=== PATIENT | female | born 1960 | race Caucasian/White ===

== ENCOUNTER → 2024-01-28 07:36 | Outpatient (REF) | payer BC, SELFPAY | LOC: EMG 07:36 | PROVIDERS: ATTENDING PHYSICIAN Pain Medicine Interventional Pain Medicine; FAMILY PHYSICIAN Family Medicine | DX: R20.0 Anesthesia of skin (principal) | CPT/HCPCS: 95886; 95910 ==

== ENCOUNTER → 2024-02-20 14:08 | Outpatient (REF) | payer BC, SELFPAY | LOC: HWRAD 14:08 | PROVIDERS: ATTENDING PHYSICIAN Internal Medicine Rheumatology; FAMILY PHYSICIAN Family Medicine | DX: M81.0 Age-related osteoporosis without current pathological fracture (principal) | CPT/HCPCS: 77080 ==

== ENCOUNTER 2024-06-27 14:05 | Emergency (ER) | payer BC, SELFPAY ==
[2024-06-27 14:09] VITALS: BP 127/80; BMI 24.8
--- NOTE | 2024-06-27 15:58 | ED.GENMED ---
History of Present Illness
General
Chief Complaint: Abdominal Symptoms
Source: patient
Exam Limitations: none
Time Seen by Provider: 06/27/24 15:54
Nursing documentation reviewed up to this point in time: agreed with
History of Present Illness
History of Present Illness:
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 Patient started first chemo and immunotherapy for soft
tissue and muscle cancer on 3 days ago at [facility] and since then has been extremely nauseous despite Zofran sublingual. She has not been able to eat. She feels very nauseous has dry heaves and is weak. She denies any fever or chills.
She is still urinating normally denies any urinary frequency urgency or dysuria.
Denies any chest pain shortness of breath. Her oncologist is Dr. Orellana AT [facility].
She did have a Neupogen injection with chemo.
Past History
Past History
ED Past Medical History: Asthma, HTN and Other (Kidney stones, hyper aldosteronism, Ulcers)
ED Past Surgical History: Other (Kidney stones)
Social History
Tobacco: Former smoker
Alcohol: Occasional
Personal: Single
Living: with family
Employment: Employed
Family History
Family History: Other (n/c)
Review of Systems
Review of Systems
Allergies reviewed?: Yes
Other source history: family
All Other Systems: ROS reviewed and negative except as documented in HPI and ROS
Constitutional: Reports no symptoms
Respiratory: Reports no symptoms
Cardiac: Reports no symptoms
ABD/GI: Reports nausea; Denies abdominal pain
: Reports no symptoms; Denies dysuria, flank pain, incontinence or urgency
Musculoskeletal: Reports no symptoms
Skin: Reports no symptoms
Neurological: Reports no symptoms
Hematologic/Lymphatic: Reports no symptoms
Psychiatric: Reports no symptoms
Phy Exam
General Physical Exam
General Presentation: no apparent distress
General age: appears stated age
General Skin: warm and dry
General Habitus: normal
General Mental: alert
General Hydration: appears well hydrated
Cardiovascular Exam
Cardiovascular Exam: regular rate/rhythm, no murmur and normal peripheral pulses
Pulmonary Exam
Pulmonary Exam: lungs clear and no respiratory distress
Neurological Exam
Neurological Exam: alert and oriented x3
Musculoskeletal Exam
Musculoskeletal Exam: full ROM
Skin Exam
Skin Exam: normal color and warm/dry
Psychiatric Exam
Psychiatric Exam: normal mood/affect
Course
Orders/Labs/Results
Orders:
Orders
06/27/24 16:08
Cardiac Monitoring- Treatment ONCE
IV Insert/Care/Rem.- Treatment PRN
0.9% Sodium Chloride 1000 ml [Nss] 1,000 ml IV BOLUS
Ondansetron Injectable [Zofran] 4 mg IV NOW STA
06/27/24 16:21
Basic Metabolic Panel Urgent
Complete Blood Count/With Diff Urgent
06/27/24 17:10
Morphine Sulfate 4 mg IV NOW STA
06/27/24 18:04
Potassium Urgent
06/27/24 18:23
Diphenhydramine [Benadryl] 25 mg IV NOW STA
Metoclopramide [Reglan] 10 mg IV NOW STA
Abnormal Lab Results
06/27/24
16:21
WBC 34.9 H 10^3/uL
(4.8-10.8)
Abs Immat Gran (auto) 3.1 H 10^3/uL
(0-0.05)
Absolute Neuts (auto) 30.8 H 10^3/uL
(1.4-6.5)
Absolute Lymphs (auto) 0.7 L 10^3/uL
(1.2-3.4)
Immature Gran % 8.8 H %
(0-0.5)
Neutrophils % 88.2 H %
(42.2-75.2)
Lymphocytes % 2.0 L %
(20.5-51.1)
Monocytes % 0.8 L %
(1.7-9.3)
Sodium 130 L mmol/L
(135-145)
BUN 19 H mg/dl
(7-17)
06/27/24 16:21
06/27/24 18:04
Vital Signs
Initial and Last Documented VS:
Initial Vital Signs
Temp Pulse Resp BP Pulse Ox
97.9 F 96 16 127/80 97
06/27/24 14:09 06/27/24 14:09 06/27/24 14:09 06/27/24 14:09 06/27/24 14:09
Last Documented Vital Signs
Temp Pulse Resp BP Pulse Ox
97.9 F 96 16 130/83 95
06/27/24 14:09 06/27/24 14:09 06/27/24 14:09 06/27/24 19:00 06/27/24 19:30
MDM/Problems Addressed
Differential Diagnosis Includes:
not limited to: nausea/and vomiting from chemo, dehydration
MDM/Problems Addressed:
Patient is a 63-year-old female recently started back on chemo June 24 for soft tissue chest mass secondary to prior history of lung cancer on the right. Patient is treated at [facility]. She reports she is extremely nauseous has dry heaves feels
dehydrated has not been able to eat. She denies any diarrhea. She did have Neupogen injection during her chemo. She denies any urinary frequency urgency or dysuria. Denies any abdominal pain. She is afebrile white count 34,000 likely from
Neupogen. Sodium is mildly low at 130 will check potassium as that was clotted. BUN slightly elevated creatinine normal 0.6. Will hydrate and treat for nausea.
Pt was hydrated here . received zofran/reglan/benadryl/fluids now feeling much better ambulatory [id number] to the bathroom. Feels well enough to go home will DC home with outpatient follow-up with her oncologist. discussed the importance of
getting her sodium rechecked and to return if any worsening of symptoms.
Chronic conditions affecting care:
Currently being treated for cancer and soft tissue muscle of chest from primary lung cancer
*Pulse Oximetry
Patient hypoxic: no
*Critical Care Note
Total Time (30-74mins, 75-104mins- exclusive of procedures): Not Applicable
ED Attending Note
-
Portions of this chart may have been created with voice recognition software.� Occasional wrong word or��sound alike� substitutions may have occurred due to the inherent limitations of voice recognition software.
Discharge Plan
Departure
Patient Disposition: Home (Routine Discharge)
Date of Disposition: 06/27/24
Time of Disposition: 20:30
Patient with high blood pressure during this ER visit?: Yes
Condition: Fair
Covid-19: Not Applicable
Discharge Problem:
Nausea
Instructions: Clear Liquid Diet, [place] Diet, BLOOD PRESSURE
Prescriptions:
No Action
spironolactone 50 MG tablet
50 mg PO BID
albuterol sulfate 1 PUFF HFA aerosol inhaler
1 puff inhalation R Q4HPRN PRN (Reason: sob)
ibuprofen 600 MG tablet
600 mg PO Q6H Qty: 30 0RF
benzonatate 100 MG capsule
1 tab PO Q4H PRN (Reason: cough)
sucralfate [Carafate] 1 GM tablet
1 gm PO BID
famotidine 20 MG tablet
20 mg PO BID
fluticasone furoate-vilanterol [Breo Ellipta] 1 EACH blister with device
1 ea IH DAILY
prednisone 20 MG tablet
40 mg PO DIRECTED
Patient Comments:
takes when has asthma flare up
doxycycline hyclate 100 MG capsule
100 mg PO Q12 Qty: 20 0RF
albuterol sulfate 2.5 MG/3 ML solution for nebulization
2.5 mg inhalation R QID Qty: 20 0RF
prednisone 10 MG tablet
40 mg PO DAILY Qty: 50 0RF
Rx Instructions:
4 pills for 3 days, 3 pills for 3 days, 2 pills for 3 days, one pill for 2 days
Referrals:
Misa Tyson, [Family Provider] -
Activity Restrictions/Additional Instructions:
As discussed clear liquids for the next 24 hours follow bland solid foods. He may continue to take your Zofran as needed for nausea. Follow-up with your family doctor/oncologist in the next several days for reevaluation of your symptoms. Also
have your sodium rechecked as it was low here in the ER.
Return if any worsening of symptoms
Interventions
Interventions:
*Risk Screen - Suicide Last Done: 06/27/24 14:09
*Neglect/Abuse Screening Last Done: 06/27/24 14:09
ED- Fall Risk Assessment Last Done: 06/27/24 14:09
*Nursing Disposition Last Done: 06/27/24 20:42
XU-Tiywim-Ryyudespef Assessment Last Done: 06/27/24 17:04
Discharge Date and Time
Discharge Date/Time: 06/27/24 20:42
Print Language: TAMAZIGHT
[2024-06-27] MEDS: ZOFRAN 4 MG IV (16:24)
[2024-06-27] MEDS: NSS 1000 IV (16:24)
[2024-06-27 16:41] VITALS: BP 129/81
[2024-06-27 16:58] LABS: Hematocrit 40.5 % (37.0-47.0); Hemoglobin 13.7 g/dL (12.0-16.0); Mean Corp Hgb Conc. 33.8 g/dL (33.0-37.0); Mean Corpuscular Hgb 29.1 pg (27.0-31.0); Mean Corpuscular Volume 86.2 fL (81.0-99.0); Mean Platelet Volume 8.6 fL (7.4-10.4); Platelet Count 350 10^3/uL (130-400); Red Cell Dist. Width 12.4 % (11.5-14.5); White Blood Cell Count 34.9 10^3/uL (4.8-10.8)
[2024-06-27 17:00] VITALS: BP 127/70
[2024-06-27 17:06] LABS: Blood Urea Nitrogen 19 mg/dl (7-17); Carbon Dioxide 22 mmol/L (22-30); Chloride 100 mmol/L (98-107); Estimated Creatinine Clearance 71 ml/min; Glucose 84 mg/dl (70-99); Sodium 130 mmol/L (135-145); eGFR > 60.00
[2024-06-27 17:09] LABS: % Basophils 0.2 % (0-2); % Immature Granulocytes 8.8 % (0-0.5); % Monocytes 0.8 % (1.7-9.3); % Neutrophils 88.2 % (42.2-75.2); Absolute Basophils 0.1 10^3/uL (0-0.2); Absolute Immature Granulocytes 3.1 10^3/uL (0-0.05); Absolute Lymphocytes 0.7 10^3/uL (1.2-3.4); Absolute Monocytes 0.3 10^3/uL (0.1-0.6); Absolute Neutrophils 30.8 10^3/uL (1.4-6.5); Nucleated Red Blood Cells % 0 %
[2024-06-27] MEDS: MORPHINE SULFATE 4 MG IV (17:19)
[2024-06-27 18:00] VITALS: BP 132/73
[2024-06-27] MEDS: REGLAN 10 MG IV (18:27)
[2024-06-27] MEDS: BENADRYL 25 MG IV (18:27)
[2024-06-27 18:37] LABS: Potassium 4.2 mmol/L (3.5-5.1)
[2024-06-27 19:00] VITALS: BP 130/83
== END 2024-06-27 20:42 | disposition home or self-care (01) ==
LOC: EMR 14:05
PROVIDERS: Nurse Practitioner; EMERGENCY PHYSICIAN Emergency Medicine; FAMILY PHYSICIAN Family Medicine
DX: R11.0 Nausea (principal); I10 Essential (primary) hypertension; C34.90 Malignant neoplasm of unspecified part of unspecified bronchus or lung; Z87.891 Personal history of nicotine dependence
CPT/HCPCS: 99284; 96374; 96375 ×3; 96361; 80048; 84132; 85025

== ENCOUNTER 2024-08-07 16:18 | Emergency (ER) | payer BC, SELFPAY ==
[2024-08-07] VITALS (8 sets, daily range): BP systolic 87–125; BP diastolic 57–75; BMI 24.9
--- NOTE | 2024-08-07 16:58 | ED.GENMED ---
History of Present Illness
General
Chief Complaint: Abdominal Symptoms
Time Seen by Provider: 08/07/24 16:58
History of Present Illness
History of Present Illness:
HPI: The patient presents due to generalized weakness and dehydration symptoms. She relates this to her last chemo at [facility] for metastatic lung cancer. She last had this 10 days ago. They tried to decrease her chemotherapy dosing but also she
continues to take immunotherapy as well. She had similar episodes with the last cycle of chemo as well. She denies any fevers or abdominal pain. She has had some decreased urine output
EXAM:
GENERAL: The patient appears generally weak and debilitated
HEENT: Slightly dry oral mucosa
CARDIOVASCULAR: No murmurs, normal heart rate, regular rhythm, No chest wall tenderness, she has a port in the left anterior chest wall
PULMONARY: No respiratory distress, breath sounds are clear and equal
ABDOMEN: Soft with no peritoneal signs, no tenderness
NEUROLOGIC: Good strength all extremities, no coordination deficits
PSYCHIATRIC: Appropriate mental status, normal insight and judgement
EXTREMITIES: Nontender, no edema, moves all extremities equally
SKIN: No rash, no lesions
TIME OF INITIAL ENCOUNTER: 5 PM
NUMBER AND COMPLEXITY OF PROBLEMS ADDRESSED AT THE ENCOUNTER
� Chronic conditions affecting care: Metastatic lung cancer status post right lung removal, high blood pressure, migraine
� Acute Exacerbation and/or Progression of Chronic Illness: This is an acute exacerbation of recurring problem
� Differential Diagnosis includes: Chemotherapy-induced nausea, doubt surgical abdomen etiology
AMOUNT AND/OR COMPLEXITY OF DATA TO BE REVIEWED AND ANALYZED
� I performed an independent evaluation of and my interpretation is:
EKG:
CT:
X-rays:
Laboratory Studies: White count 10.7, hemoglobin 9.8 which is lower in comparison to 6 weeks ago it was 13.7 chemistries including LFTs and lipase unremarkable
Other:
� Review of other/old records: I reviewed records. The patient was seen here 6 weeks ago for nausea and at that time had a white count of 35, and chemistries were unremarkable.
� Clinical information was obtained by an independent historian: I spoke to the sister at bedside
� Prescriptions/Medications Considered but not given:
� Further testing considered but not performed:
RISK OF COMPLICATIONS AND/OR MORBIDITY OR MORTALITY OF PATIENT MANAGEMENT
� Social determinants of health affecting care: Lives at home with her sister
� Discussion with other providers:
� Escalation of care including admission/observation vs risk of discharge considered: The patient's port has been accessed. The patient prefers Reglan over Zofran�I have ordered this along with 2 L of fluid. Given the drop in
hemoglobin, I performed a digital rectal examination which was negative for Hemoccult blood. The patient's blood pressure has been somewhat low at times in the emergency department with a systolic of around 200. She states her normal systolic is
around 110. Since she did have a drop in the hemoglobin and does have mild hypotension, I offered and considered keeping her in the hospital however the patient overall feels significant improved and is eager to go home. She states she has nausea
medicine at home. On reassessment at 9 PM, the patient has had some low blood pressure readings of around 90 systolic and she is also had some readings that were around 120. I personally took several readings. Overall she feels improved and feels
comfortable with going home. Since she did have some low blood pressure readings, I recommend that she hold the Aldactone until her blood pressure improves. She has no symptoms concerning with low blood pressure readings.
Past History
Past History
ED Past Medical History: Asthma, HTN and Other (Kidney stones, hyper aldosteronism, Ulcers)
ED Past Surgical History: Other (Kidney stones)
Social History
Tobacco: Former smoker
Alcohol: Occasional
Personal: Single
Living: with family
Employment: Employed
Family History
Family History: Other (n/c)
Phy Exam
Physical Exam
Physical Exam:
See HPI
Course
Orders/Labs/Results
Orders:
Orders
08/07/24 16:58
Complete Blood Count/With Diff Urgent
Comprehensive Metabolic Panel Urgent
Lipase Urgent
08/07/24 17:10
0.9% Sodium Chloride 1000 ml [Nss] 1,000 ml IV BOLUS
Diphenhydramine [Benadryl] 25 mg IV NOW STA
Metoclopramide [Reglan] 10 mg IV NOW STA
08/07/24 17:11
0.9% Sodium Chloride 1000 ml [Nss] 1,000 ml IV BOLUS
08/07/24 20:08
Ketorolac [Toradol] 15 mg IV NOW STA
Abnormal Lab Results
08/07/24
16:58
RBC 3.63 L 10^6/uL
(4.20-5.40)
Hgb 9.8 L g/dL
(12.0-16.0)
Hct 29.2 L %
(37.0-47.0)
MCV 80.4 L fL
(81.0-99.0)
Abs Immat Gran (auto) 0.2 H 10^3/uL
(0-0.05)
Absolute Neuts (auto) 8.5 H 10^3/uL
(1.4-6.5)
Absolute Lymphs (auto) 0.9 L 10^3/uL
(1.2-3.4)
Absolute Monos (auto) 1.2 H 10^3/uL
(0.1-0.6)
Immature Gran % 1.6 H %
(0-0.5)
Neutrophils % 79.2 H %
(42.2-75.2)
Lymphocytes % 8.0 L %
(20.5-51.1)
Monocytes % 11.0 H %
(1.7-9.3)
Sodium 131 L mmol/L
(135-145)
Chloride 92 L mmol/L
(98-107)
BUN 18 H mg/dl
(7-17)
Glucose 106 H mg/dl
(70-99)
Alkaline Phosphatase 155 H U/L
(38-126)
Total Protein 5.7 L g/dl
(6.3-8.2)
Albumin 3.2 L g/dl
(3.5-5.0)
Lipase 16 L U/L
(23-300)
08/07/24 16:58
08/07/24 16:58
Vital Signs
Initial and Last Documented VS:
Initial Vital Signs
Temp Pulse Resp BP Pulse Ox
98.1 F 108 16 125/75 96
08/07/24 16:27 08/07/24 16:27 08/07/24 16:27 08/07/24 16:27 08/07/24 16:27
Last Documented Vital Signs
Temp Pulse Resp BP Pulse Ox
98.1 F 96 18 87/58 96
08/07/24 16:27 08/07/24 20:00 08/07/24 20:00 08/07/24 20:51 08/07/24 20:51
*Critical Care Note
Total Time (30-74mins, 75-104mins- exclusive of procedures): Not Applicable
ED Attending Note
-
Portions of this chart may have been created with voice recognition software.� Occasional wrong word or��sound alike� substitutions may have occurred due to the inherent limitations of voice recognition software.
Discharge Plan
Departure
Patient Disposition: Home (Routine Discharge)
Date of Disposition: 08/07/24
Time of Disposition: 21:04
Patient with high blood pressure during this ER visit?: Yes
Discharge Problem:
Dehydration
Instructions: Dehydration, Adult (DC), BLOOD PRESSURE
Prescriptions:
New
metoclopramide HCl [Reglan] 10 mg tablet
10 mg PO Q8HPRN PRN (Reason: nausea and vomiting) Qty: 9 0RF
No Action
spironolactone 50 MG tablet
50 mg PO BID
albuterol sulfate 1 PUFF HFA aerosol inhaler
1 puff inhalation R Q4HPRN PRN (Reason: sob)
ibuprofen 600 MG tablet
600 mg PO Q6H Qty: 30 0RF
benzonatate 100 MG capsule
1 tab PO Q4H PRN (Reason: cough)
sucralfate [Carafate] 1 GM tablet
1 gm PO BID
famotidine 20 MG tablet
20 mg PO BID
fluticasone furoate-vilanterol [Breo Ellipta] 1 EACH blister with device
1 ea IH DAILY
prednisone 20 MG tablet
40 mg PO DIRECTED
Patient Comments:
takes when has asthma flare up
doxycycline hyclate 100 MG capsule
100 mg PO Q12 Qty: 20 0RF
albuterol sulfate 2.5 MG/3 ML solution for nebulization
2.5 mg inhalation R QID Qty: 20 0RF
prednisone 10 MG tablet
40 mg PO DAILY Qty: 50 0RF
Rx Instructions:
4 pills for 3 days, 3 pills for 3 days, 2 pills for 3 days, one pill for 2 days
Referrals:
Misa Tyson, DO [Family Provider] -
Activity Restrictions/Additional Instructions:
You did have several low blood pressure readings of around 90 systolic tonight. I therefore recommend that you hold the Aldactone until your blood pressure improves. We did give you some Reglan and Benadryl that might sedation and drop your blood
pressure a little bit. We gave you 2 L of fluid. Your hemoglobin did drop as well down to 9.8 but your rectal examination did not show any signs of bleeding. You are encouraged to return here if worse.
Interventions
Interventions:
*Risk Screen - Suicide Last Done: 08/07/24 17:58
*General Assessment Last Done: 08/07/24 17:58
*Neglect/Abuse Screening Last Done: 08/07/24 17:58
ED- Fall Risk Assessment Last Done: 08/07/24 17:58
*ED COVID-19 Vaccine History Last Done: 08/07/24 17:58
[id number] Assessment Last Done: 08/07/24 17:58
Discharge Date and Time
Print Language: DIVEHI
[2024-08-07 17:33] LABS: ALT (SGPT) 21 U/L (0-35); AST (SGOT) 23 U/L (14-36); Albumin 3.2 g/dl (3.5-5.0); Alkaline Phosphatase 155 U/L (38-126); Blood Urea Nitrogen 18 mg/dl (7-17); Calcium 9.6 mg/dl (8.4-10.2); Carbon Dioxide 23 mmol/L (22-30); Chloride 92 mmol/L (98-107); Glucose 106 mg/dl (70-99); Lipase 16 U/L (23-300); Potassium 3.7 mmol/L (3.5-5.1); Sodium 131 mmol/L (135-145); Total Protein 5.7 g/dl (6.3-8.2); eGFR > 60.00
[2024-08-07 17:37] LABS: Hematocrit 29.2 % (37.0-47.0); Hemoglobin 9.8 g/dL (12.0-16.0); Mean Corp Hgb Conc. 33.6 g/dL (33.0-37.0); Mean Corpuscular Volume 80.4 fL (81.0-99.0); Mean Platelet Volume 9.7 fL (7.4-10.4); Platelet Count 174 10^3/uL (130-400); Red Blood Cell Count 3.63 10^6/uL (4.20-5.40); White Blood Cell Count 10.7 10^3/uL (4.8-10.8)
[2024-08-07] MEDS: BENADRYL 25 MG IV (17:41)
[2024-08-07] MEDS: REGLAN 10 MG IV (17:42)
[2024-08-07] MEDS: NSS 1000 IV ×2 (17:43→19:29)
[2024-08-07 17:46] LABS: % Basophils 0.1 % (0-2); % Eosinophils 0.1 % (0-6); % Immature Granulocytes 1.6 % (0-0.5); % Neutrophils 79.2 % (42.2-75.2); Absolute Immature Granulocytes 0.2 10^3/uL (0-0.05); Absolute Lymphocytes 0.9 10^3/uL (1.2-3.4); Absolute Monocytes 1.2 10^3/uL (0.1-0.6); Absolute Neutrophils 8.5 10^3/uL (1.4-6.5); Nucleated Red Blood Cells % 0 %
--- NOTE | 2024-08-07 18:08 | EDRN ---
Dr. Ramírez in room w/pt at this time.
[2024-08-07] MEDS: TORADOL 15 MG IV (20:12)
--- NOTE | 2024-08-07 21:24 | VATNOTE ---
Patient's port was flushed with heparin and de-accessed per primary RN request as patient is being discharged.
== END 2024-08-07 21:33 | disposition home or self-care (01) ==
LOC: EMR 16:18
PROVIDERS: Student in an Organized Health Care Education/Training Program; EMERGENCY PHYSICIAN Emergency Medicine; FAMILY PHYSICIAN Family Medicine
DX: E86.0 Dehydration (principal); R53.1 Weakness; R11.0 Nausea; I10 Essential (primary) hypertension; C34.90 Malignant neoplasm of unspecified part of unspecified bronchus or lung; J45.909 Unspecified asthma, uncomplicated; E26.9 Hyperaldosteronism, unspecified; G43.909 Migraine, unspecified, not intractable, without status migrainosus; Z92.21 Personal history of antineoplastic chemotherapy; Z90.2 Acquired absence of lung [part of]; Z88.8 Allergy status to other drugs, medicaments and biological substances; Z87.891 Personal history of nicotine dependence; Z87.442 Personal history of urinary calculi
CPT/HCPCS: 99284; 96374; 96375 ×2; 96361 ×3; 80053; 83690; 85025

== ENCOUNTER 2024-09-01 11:01 | Emergency (ER) | payer BC, SELFPAY ==
[2024-09-01 11:06] VITALS: BP 107/71
--- NOTE | 2024-09-01 11:59 | ED.GENMED ---
History of Present Illness
<KELLY Ramirez - Last Filed: 09/02/24 22:09>
General
Chief Complaint: Bowel Problem
Source: patient
Exam Limitations: none
Time Seen by Provider: 09/01/24 11:33
Nursing documentation reviewed up to this point in time: agreed with
History of Present Illness
History of Present Illness:
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 She is follwed by DR Law Espitia ([facility]) . Patient complains of constipation and
reports her last full bowel movement was 10 days ago she was sent by her oncologist. She has nauseous. She has dry heaving but is not vomiting. She is on lactulose and did give a fleets enema yesterday.
She believes she last had chemo at the end of July but did not have chemotherapy August 25 because of nausea. She is due September 03.
Past History
<KELLY Ramirez - Last Filed: 09/02/24 22:09>
Past History
ED Past Medical History: Asthma, HTN and Other (Kidney stones, hyper aldosteronism, Ulcers)
ED Past Surgical History: Other (Kidney stones)
Social History
Tobacco: Former smoker
Alcohol: Occasional
Personal: Single
Living: with family
Employment: Employed
Family History
Family History: Other (n/c)
Review of Systems
<KELLY Ramirez - Last Filed: 09/02/24 22:09>
Review of Systems
Allergies reviewed?: Yes
All Other Systems: ROS reviewed and negative except as documented in HPI and ROS
Constitutional: Reports no symptoms; Denies fever
Respiratory: Reports no symptoms
Cardiac: Reports no symptoms
ABD/GI: Reports abdominal pain, nausea, vomiting ('dry heaving' ) and constipated
: Reports no symptoms
Musculoskeletal: Reports no symptoms
Skin: Reports no symptoms
Neurological: Reports no symptoms
Psychiatric: Reports no symptoms
Phy Exam
<KELLY Ramirez - Last Filed: 09/02/24 22:09>
General Physical Exam
General Presentation: no apparent distress
General age: appears stated age
General Skin: warm and dry
General Habitus: normal
General Mental: alert
General Hydration: appears well hydrated
Gastrointestinal Exam
Gastrointestinal Exam: soft and other (+ BS non tender sm amt of stool brown heme neg)
Neurological Exam
Neurological Exam: alert
Musculoskeletal Exam
Musculoskeletal Exam: full ROM
Skin Exam
Skin Exam: normal color and warm/dry
Psychiatric Exam
Psychiatric Exam: normal mood/affect
Course
<KELLY Ramirez - Last Filed: 09/02/24 22:09>
Orders/Labs/Results
Orders:
Orders
09/01/24 11:56
IV Insert/Care/Rem.- Treatment PRN
CR Obstruct Series W/pa Chest Urgent
Comment:
Reason For Exam: constipation
09/01/24 12:19
Complete Blood Count/With Diff Urgent
Comprehensive Metabolic Panel Urgent
09/01/24 13:55
CT Abd/pel W Iv And Oral Contr Urgent
Comment:
Reason For Exam: abd pain constipation
0.9% Sodium Chloride 1000 ml [Nss] 1,000 ml IV BOLUS
Iohexol [Omnipaque] See Protocol PO NOW STA
09/01/24 17:25
UA Reflex to Culture [Urinalysis Reflex To Culture] Urgent
Date Specimen was Collected: 09/01/24
Time Specimen was Collected: 15:36
09/01/24 17:46
Enema- Treatment ONCE
Type: Milk of Molasses
09/01/24 19:20
Lorazepam [Ativan] 0.5 mg PO NOW STA
Abnormal Lab Results
09/01/24 09/01/24
12:19 17:25
WBC 24.4 H 10^3/uL
(4.8-10.8)
RBC 2.92 L 10^6/uL
(4.20-5.40)
Hgb 7.7 L g/dL
(12.0-16.0)
Hct 24.6 L %
(37.0-47.0)
MCH 26.4 L pg
(27.0-31.0)
MCHC 31.3 L g/dL
(33.0-37.0)
RDW 18.3 H %
(11.5-14.5)
Abs Immat Gran (auto) 0.3 H 10^3/uL
(0-0.05)
Absolute Neuts (auto) 22.4 H 10^3/uL
(1.4-6.5)
Absolute Lymphs (auto) 0.6 L 10^3/uL
(1.2-3.4)
Absolute Monos (auto) 1.1 H 10^3/uL
(0.1-0.6)
Immature Gran % 1.1 H %
(0-0.5)
Neutrophils % 91.7 H %
(42.2-75.2)
Lymphocytes % 2.3 L %
(20.5-51.1)
Sodium 131 L mmol/L
(135-145)
Chloride 92 L mmol/L
(98-107)
Creatinine 0.5 L mg/dL
(0.6-1.0)
Alkaline Phosphatase 143 H U/L
(38-126)
Total Protein 5.0 L g/dl
(6.3-8.2)
Albumin 2.6 L g/dl
(3.5-5.0)
Urine Ketones 1+ A
(Negative)
Urine Urobilinogen 2+ A
(Neg - 1+)
09/01/24 12:19
09/01/24 12:19
Vital Signs
Initial and Last Documented VS:
Initial Vital Signs
Temp Pulse Resp BP Pulse Ox
98.8 F 104 18 107/71 95
09/01/24 11:06 09/01/24 11:06 09/01/24 11:06 09/01/24 11:06 09/01/24 11:06
Last Documented Vital Signs
Temp Pulse Resp BP Pulse Ox
98.8 F 80 18 116/78 100
09/01/24 11:06 09/01/24 19:36 09/01/24 19:36 09/01/24 15:00 09/01/24 19:36
Vp Delivery consulted with Physician
Vp Delivery consulted with physician?: Yes
Name of Physician Consulted: DR Wise
<Law Wise, DO - Last Filed: 09/01/24 19:21>
Orders/Labs/Results
Orders:
Orders
09/01/24 11:56
IV Insert/Care/Rem.- Treatment PRN
CR Obstruct Series W/pa Chest Urgent
Comment:
Reason For Exam: constipation
09/01/24 12:19
Complete Blood Count/With Diff Urgent
Comprehensive Metabolic Panel Urgent
09/01/24 13:55
CT Abd/pel W Iv And Oral Contr Urgent
Comment:
Reason For Exam: abd pain constipation
0.9% Sodium Chloride 1000 ml [Nss] 1,000 ml IV BOLUS
Iohexol [Omnipaque] See Protocol PO NOW STA
09/01/24 17:25
UA Reflex to Culture [Urinalysis Reflex To Culture] Urgent
Date Specimen was Collected: 09/01/24
Time Specimen was Collected: 15:36
09/01/24 17:46
Enema- Treatment ONCE
Type: Milk of Molasses
09/01/24 19:20
Lorazepam [Ativan] 0.5 mg PO NOW STA
Abnormal Lab Results
09/01/24 09/01/24
12:19 17:25
WBC 24.4 H 10^3/uL
(4.8-10.8)
RBC 2.92 L 10^6/uL
(4.20-5.40)
Hgb 7.7 L g/dL
(12.0-16.0)
Hct 24.6 L %
(37.0-47.0)
MCH 26.4 L pg
(27.0-31.0)
MCHC 31.3 L g/dL
(33.0-37.0)
RDW 18.3 H %
(11.5-14.5)
Abs Immat Gran (auto) 0.3 H 10^3/uL
(0-0.05)
Absolute Neuts (auto) 22.4 H 10^3/uL
(1.4-6.5)
Absolute Lymphs (auto) 0.6 L 10^3/uL
(1.2-3.4)
Absolute Monos (auto) 1.1 H 10^3/uL
(0.1-0.6)
Immature Gran % 1.1 H %
(0-0.5)
Neutrophils % 91.7 H %
(42.2-75.2)
Lymphocytes % 2.3 L %
(20.5-51.1)
Sodium 131 L mmol/L
(135-145)
Chloride 92 L mmol/L
(98-107)
Creatinine 0.5 L mg/dL
(0.6-1.0)
Alkaline Phosphatase 143 H U/L
(38-126)
Total Protein 5.0 L g/dl
(6.3-8.2)
Albumin 2.6 L g/dl
(3.5-5.0)
Urine Ketones 1+ A
(Negative)
Urine Urobilinogen 2+ A
(Neg - 1+)
09/01/24 12:19
09/01/24 12:19
Vital Signs
Initial and Last Documented VS:
Initial Vital Signs
Temp Pulse Resp BP Pulse Ox
98.8 F 104 18 107/71 95
09/01/24 11:06 09/01/24 11:06 09/01/24 11:06 09/01/24 11:06 09/01/24 11:06
Last Documented Vital Signs
Temp Pulse Resp BP Pulse Ox
98.8 F 80 18 116/78 100
09/01/24 11:06 09/01/24 19:36 09/01/24 19:36 09/01/24 15:00 09/01/24 19:36
<KELLY Ramirez - Last Filed: 09/02/24 22:09>
MDM/Problems Addressed
Differential Diagnosis Includes:
Not limited to constipation, bowel obstruction, diverticulitis
MDM/Problems Addressed:
Patient is a 63-year-old female with lung cancer presents to the ER for evaluation of nausea constipation sent by her oncologist will be obstruction. Patient's white count was elevated 24,000 she last had chemotherapy in July. she had no initial
complaints of fevers however when asked again she reports temperature was 100 last night. She did not recently have any Epogen her last chemo was as documented in July. She presents awake alert no acute distress mild nonspecific tenderness to
abdomen positive bowel sounds x-ray does show moderate large amount of feces at the colon and rectum suggesting possible constipation however with elevated white count will order CAT scan.
Will hydrate and check urine. Patient is afebrile here.
<KELLY Ramirez - Last Filed: 09/02/24 22:09>
*Radiology
Radiology exam reviewed: radiology read reviewed
*Pulse Oximetry
Patient hypoxic: no
*Critical Care Note
Total Time (30-74mins, 75-104mins- exclusive of procedures): Not Applicable
ED Attending Note
<KELLY Ramirez - Last Filed: 09/02/24 22:09>
-
Portions of this chart may have been created with voice recognition software.� Occasional wrong word or��sound alike� substitutions may have occurred due to the inherent limitations of voice recognition software.
<Law Wise DO - Last Filed: 09/01/24 19:21>
ED Attending Note
Patient seen and examined by attending physician: Yes
I performed the substantive portion of visit, reviewed & personally made and approve the management plan that is documented in note by myself or DARCIE.: Yes
ED Attending Note:
I have seen and evaluated the patient with a [id number] encounter. I have spoken to the advance practicer provider and involved in the medical history, the physical exam, medical decision making.
Evaluation and management service: agree unless noted differently below.
Results interpretation: agree unless noted differently below.
Focused HPI: 63-year-old female with a history of metastatic lung cancer presenting with abdominal pain and constipation despite taking lactulose. Given that she has not had bowel movement, she was sent in for evaluation
Physical exam: Mildly uncomfortable. Mild left lower quadrant abdominal pain
Medical Decision Making: I gave the patient a printout of the CT scan we discussed that there is a new metastasis. There is a large amount of stool in her rectum. She does have leukocytosis but no fever. No infectious etiology seen on the CT
scan. Patient given an enema which did not help. She gave verbal consent for disimpaction which she tolerated very well. After disimpaction, she is feeling much better and feels comfortable going home
Discharge Plan
Departure
Patient Disposition: Home (Routine Discharge)
Date of Disposition: 09/01/24
Time of Disposition: 19:21
Patient with high blood pressure during this ER visit?: No
Discharge Problem:
Constipation
Instructions: Constipation, Adult (DC)
Prescriptions:
No Action
spironolactone 50 MG tablet
50 mg PO BID
albuterol sulfate 1 PUFF HFA aerosol inhaler
1 puff inhalation R Q4HPRN PRN (Reason: sob)
ibuprofen 600 MG tablet
600 mg PO Q6H Qty: 30 0RF
benzonatate 100 MG capsule
1 tab PO Q4H PRN (Reason: cough)
sucralfate [Carafate] 1 GM tablet
1 gm PO BID
famotidine 20 MG tablet
20 mg PO BID
fluticasone furoate-vilanterol [Breo Ellipta] 1 EACH blister with device
1 ea IH DAILY
prednisone 20 MG tablet
40 mg PO DIRECTED
Patient Comments:
takes when has asthma flare up
doxycycline hyclate 100 MG capsule
100 mg PO Q12 Qty: 20 0RF
albuterol sulfate 2.5 MG/3 ML solution for nebulization
2.5 mg inhalation R QID Qty: 20 0RF
prednisone 10 MG tablet
40 mg PO DAILY Qty: 50 0RF
Rx Instructions:
4 pills for 3 days, 3 pills for 3 days, 2 pills for 3 days, one pill for 2 days
metoclopramide HCl [Reglan] 10 mg tablet
10 mg PO Q8HPRN PRN (Reason: nausea and vomiting) Qty: 9 0RF
Referrals:
Misa Tyson DO [Family Provider] -
Activity Restrictions/Additional Instructions:
Please return for any worsening symptoms.
You may return at any time if you have further concerns.
Please follow up with your doctor at the first available appointment, preferably this week.
Thank you for choosing [facility].
Interventions
Interventions:
*General Assessment Last Done: 09/01/24 11:06
*Neglect/Abuse Screening Last Done: 09/01/24 11:07
ED- Fall Risk Assessment Last Done: 09/01/24 15:37
*Nursing Disposition Last Done: 09/01/24 20:06
MO-Ocobkc-Tmnhqvtlcu Assessment Last Done: 09/01/24 12:53
Discharge Date and Time
Discharge Date/Time: 09/01/24 20:06
Print Language: PALAUAN
[2024-09-01 12:27] LABS: Hematocrit 24.6 % (37.0-47.0); Hemoglobin 7.7 g/dL (12.0-16.0); Mean Corp Hgb Conc. 31.3 g/dL (33.0-37.0); Mean Corpuscular Hgb 26.4 pg (27.0-31.0); Mean Corpuscular Volume 84.2 fL (81.0-99.0); Mean Platelet Volume 9.2 fL (7.4-10.4); Platelet Count 392 10^3/uL (130-400); Red Blood Cell Count 2.92 10^6/uL (4.20-5.40); Red Cell Dist. Width 18.3 % (11.5-14.5); White Blood Cell Count 24.4 10^3/uL (4.8-10.8)
[2024-09-01 13:00] LABS: ALT (SGPT) 14 U/L (0-35); AST (SGOT) 18 U/L (14-36); Albumin 2.6 g/dl (3.5-5.0); Alkaline Phosphatase 143 U/L (38-126); Blood Urea Nitrogen 13 mg/dl (7-17); Calcium 9.5 mg/dl (8.4-10.2); Carbon Dioxide 26 mmol/L (22-30); Chloride 92 mmol/L (98-107); Glucose 97 mg/dl (70-99); Sodium 131 mmol/L (135-145); eGFR > 60.00
[2024-09-01 13:32] LABS: % Basophils 0.3 % (0-2); % Eosinophils 0.1 % (0-6); % Immature Granulocytes 1.1 % (0-0.5); % Lymphocytes 2.3 % (20.5-51.1); % Monocytes 4.5 % (1.7-9.3); % Neutrophils 91.7 % (42.2-75.2); Absolute Basophils 0.1 10^3/uL (0-0.2); Absolute Immature Granulocytes 0.3 10^3/uL (0-0.05); Absolute Lymphocytes 0.6 10^3/uL (1.2-3.4); Absolute Monocytes 1.1 10^3/uL (0.1-0.6); Absolute Neutrophils 22.4 10^3/uL (1.4-6.5); Nucleated Red Blood Cells % 0 %
[2024-09-01] MEDS: OMNIPAQUE 50 ML PO (14:18)
[2024-09-01] MEDS: NSS 1000 IV (14:55)
[2024-09-01 15:00] VITALS: BP 116/78
[2024-09-01 17:41] LABS: Urine Albumin Negative (Neg - Trace); Urine Bilirubin Negative (Negative); Urine Character Clear (Clear); Urine Color Yellow; Urine Glucose Negative (Negative); Urine Ketone 1+ (Negative); Urine Leukocyte Negative (Negative); Urine Nitrite Negative (Negative); Urine Occult Blood Negative (Negative); Urine Urobilinogen 2+ (Neg - 1+)
[2024-09-01] MEDS: ATIVAN 0.5 MG PO (19:26)
== END 2024-09-01 20:06 | disposition home or self-care (01) ==
LOC: EMR 11:01
PROVIDERS: Nurse Practitioner; EMERGENCY PHYSICIAN Student in an Organized Health Care Education/Training Program; FAMILY PHYSICIAN Family Medicine
DX: K59.00 Constipation, unspecified (principal); R10.32 Left lower quadrant pain; R11.2 Nausea with vomiting, unspecified; C34.90 Malignant neoplasm of unspecified part of unspecified bronchus or lung; C79.89 Secondary malignant neoplasm of other specified sites; I10 Essential (primary) hypertension; J45.909 Unspecified asthma, uncomplicated; G43.909 Migraine, unspecified, not intractable, without status migrainosus; R01.1 Cardiac murmur, unspecified; N32.81 Overactive bladder; M81.0 Age-related osteoporosis without current pathological fracture; Z79.899 Other long term (current) drug therapy; Z92.21 Personal history of antineoplastic chemotherapy; Z87.891 Personal history of nicotine dependence; Z87.442 Personal history of urinary calculi; Z90.2 Acquired absence of lung [part of]
CPT/HCPCS: 99285; 96361 ×2; 96360; 74022; 74177; 80053; 81003; 85025; Q9967

== ENCOUNTER 2024-09-18 18:10 | Inpatient (IN) | payer BC, SELFPAY ==
[2024-09-18] VITALS (27 sets, daily range): BP systolic 71–103; BP diastolic 44–75; BMI 20.8
[2024-09-18 14:20] LABS: Urine Albumin Trace (Neg - Trace); Urine Bilirubin 1+ (Negative); Urine Character Slightly Cloudy (Clear); Urine Color Amber; Urine Glucose Negative (Negative); Urine Ketone Trace (Negative); Urine Leukocyte Trace (Negative); Urine Nitrite Negative (Negative); Urine Occult Blood Negative (Negative); Urine Specific Gravity 1.015 (<1.030); Urine Urobilinogen 3+ (Neg - 1+)
[2024-09-18 14:28] LABS: Urine Bacteria Many (Negative); Urine Red Blood Cell 0-2 /HPF (0-2); Urine White Cell 21-25 /HPF (0-5)
--- NOTE | 2024-09-18 14:43 | ED.GENMED ---
History of Present Illness
General
Chief Complaint: Change in Mental Status
Source: patient
Exam Limitations: none
Time Seen by Provider: 09/18/24 14:22
Nursing documentation reviewed up to this point in time: agreed with
History of Present Illness
History of Present Illness:
63-year-old female presents emergency room due to confusion and weakness. She she was weak and lowered herself to the ground. She has not urinating more frequently.
Past History
Past History
ED Past Medical History: Asthma, HTN and Other (Kidney stones, hyper aldosteronism, Ulcers)
ED Past Surgical History: Other (Kidney stones)
Social History
Tobacco: Former smoker
Alcohol: Occasional
Personal: Single
Living: with family
Employment: Employed
Family History
Family History: Other (n/c)
Review of Systems
Review of Systems
Constitutional: Reports fever and fatigue
EENT: Reports no symptoms
Respiratory: Reports no symptoms
Cardiac: Reports no symptoms
ABD/GI: Reports no symptoms
: Reports no symptoms
Musculoskeletal: Reports no symptoms
Skin: Reports no symptoms
Neurological: Reports weakness
Endocrine: Reports no symptoms
Hematologic/Lymphatic: Reports no symptoms
Psychiatric: Reports no symptoms
Phy Exam
Physical Exam
Physical Exam:
Physical Exam
General: Chronic ill appearance
Neck: supple. no meningeal signs. normal posterior pharynx
Heart: s1/s2 tachycardia, no murmur. equal radial
pulses. Port left upper chest
HEENT: Pupils equal round reactive to light, EOMI
Lungs: no acute respiratory distress. clear bilaterally
Abdomen: normal bowel sounds. not tender. no CVAT
Neuro: alert and oriented to person and place. no focal neurological deficits cranial nerves II through XII intact
Skin: no rash
Psychiatric: well kept. interactive and cooperative
Extremities: no edema. no calf tenderness. negative homans. good distal pulses
Sepsis
Sepsis Screening
Sepsis Assessment: Sepsis Ruled Out
Sepsis Screen
Sepsis Screen: Sepsis Ruled Out
Date: 09/18/24
Time: 19:04
Course
Orders/Labs/Results
Orders:
Orders
09/18/24 13:40
EKG [Electrocardiogram (*1)] Urgent
Reason for Study: Fatigue / Weakness
EKG- Treatment ONCE
09/18/24 14:10
Urinalysis Urgent
Date Specimen was Collected: 09/18/24
Time Specimen was Collected: 14:08
Urine Microscopic Urgent
Date Specimen was Collected: 09/18/24
Time Specimen was Collected: 14:08
09/18/24 14:40
Cardiac Monitoring- Treatment ONCE
IV Insert/Care/Rem.- Treatment PRN
Pulse Ox/cont/shift [RESP] Urgent
Quantity: 1
09/18/24 14:41
CR Chest - 2 Views Urgent
Comment:
Reason For Exam: fever
09/18/24 15:07
COVID-19 Antigen Urgent
Source: Nasal Swab
Complete Blood Count/With Diff Urgent
Comprehensive Metabolic Panel Urgent
Ferritin Urgent
Comment: ADD ON
Folate Urgent
Comment: ADD ON
Iron Urgent
LDH Urgent
Lactic Acid Q4H
Comment: CANCEL 2nd LACTIC ACID IF 1st LACTIC ACID IS LESS THAN 2
PTT Urgent
Prothrombin Time Urgent
Reticulocyte Count Urgent
Total Iron Binding Urgent
Vitamin B12 Urgent
Comment: ADD ON
Influenza A+B Rapid Molecular Urgent
NELL Source: Nasal Swab
Specimen Description:
09/18/24 15:33
Blood Culture Routine
NELL Source: Blood/Venous
Specimen Description:
Blood Culture Urgent
NELL Source: Blood/Venous
Specimen Description:
09/18/24 16:53
Cefepime HCl [Maxipime] 2,000 mg IV NOW STA
09/18/24 17:23
Type+Screen Urgent
Haptoglobin [S] Routine
09/18/24 17:28
Admit/Transfer Patient As Directed
Co-Sign Provider:
Level of Care: Inpatient admission
Assign to:: IMU- Intermediate Care
Physician / Group: gertrude
Diagnosis: spsis
Reason for Hospitalization: sepsis
Expected length of stay greater than two midnights?: Yes
ELOS- Estimated Length of Stay in days: 3
I certify the patient meets the requirements for IP care: Yes
PRN Pain Medication Management As Directed
May give lesser potent ordered pain med per pt: Yes
preference::
Protocol:: Medication orders for pain may be administered in a
manner that supports deferring to patient preference
when the pt is:
- Requesting an ordered lesser potent pain medication.
Least to most potent pain medications are defined
as: acetaminophen < NSAID < tramadol < opioids
(morphine, oxycodone, hydromorphone).
- Requesting a lesser dose of the same medication IF
ORDERED.
- Requesting a less intrusive route of administration
if both routes are prescribed by the provider (PO <
IV).
09/18/24 17:31
Code Status As Directed
Resuscitation Status: Full Code
09/18/24 17:45
Add On- LAB Stat
Tests Added?: haptoglobin, retic count, LDH
Add On- LAB Stat
Tests Added?: iron panel, ferritin, b12, foalte, TIBC
09/18/24 17:46
Blood Bank Products [* Blood Bank Products] Routine
Blood Bank Products: *Packed RBC Leuko(PRBC's)
Quantity: 1
Transfuse Today: Yes
Reason: Anemia
09/18/24 18:01
ABO2 Urgent
BBK Wristband Number:
Associate notified that ABO2 has been ordered: [id number]
Date: 09/18/24
Time: 17:30
Pouncer Machine ID: [id number]
PRN Pain Medication Management As Directed
May give lesser potent ordered pain med per pt: Yes
preference::
Protocol:: Medication orders for pain may be administered in a
manner that supports deferring to patient preference
when the pt is:
- Requesting an ordered lesser potent pain medication.
Least to most potent pain medications are defined
as: acetaminophen < NSAID < tramadol < opioids
(morphine, oxycodone, hydromorphone).
- Requesting a lesser dose of the same medication IF
ORDERED.
- Requesting a less intrusive route of administration
if both routes are prescribed by the provider (PO <
IV).
09/18/24 18:05
Lactic Acid Q4H
Comment: CANCEL 2nd LACTIC ACID IF 1st LACTIC ACID IS LESS THAN 2
09/20/24 11:00
DC Protocol for Telemetry ONCE
Abnormal Lab Results
09/18/24 09/18/24 09/18/24
14:10 15:07 17:23
WBC 13.7 H 10^3/uL
(4.8-10.8)
RBC 2.33 L 10^6/uL
(4.20-5.40)
Hgb 6.3 L* g/dL
(12.0-16.0)
Hct 20.1 L* %
(37.0-47.0)
MCHC 31.3 L g/dL
(33.0-37.0)
RDW 20.3 H %
(11.5-14.5)
Plt Count 75 L 10^3/uL
(130-400)
Abs Immat Gran (auto) 0.2 H 10^3/uL
(0-0.05)
Absolute Neuts (auto) 12.0 H 10^3/uL
(1.4-6.5)
Absolute Lymphs (auto) 0.4 L 10^3/uL
(1.2-3.4)
Absolute Monos (auto) 1.1 H 10^3/uL
(0.1-0.6)
Immature Gran % 1.3 H %
(0-0.5)
Neutrophils % 87.4 H %
(42.2-75.2)
Lymphocytes % 2.9 L %
(20.5-51.1)
PT 19.5 H Sec
(11.4-14.6)
APTT 39.2 H Sec
(23.4-35.0)
Sodium 132 L mmol/L
(135-145)
Chloride 92 L mmol/L
(98-107)
Glucose 121 H mg/dl
(70-99)
Iron < 20 L ug/dl
(37-170)
TIBC 147 L ug/dl
(265-497)
Ferritin 668.0 H ng/ml
(11.1-264.0)
Alkaline Phosphatase 155 H U/L
(38-126)
Total Protein 4.9 L g/dl
(6.3-8.2)
Albumin 2.5 L g/dl
(3.5-5.0)
Urine Ketones Trace A
(Negative)
Urine Bilirubin 1+ A
(Negative)
Urine Urobilinogen 3+ A
(Neg - 1+)
Ur Leukocyte Esterase Trace A
(Negative)
Urine WBC 21-25 A /HPF
(0-5)
Urine Bacteria Many A
(Negative)
Crossmatch IS Only See Detail
09/18/24 15:07
09/18/24 15:07
Vital Signs
Initial and Last Documented VS:
Initial Vital Signs
Temp Pulse Resp BP Pulse Ox
98.0 F 108 23 103/64 99
09/18/24 13:39 09/18/24 13:39 09/18/24 13:39 09/18/24 13:39 09/18/24 13:39
Last Documented Vital Signs
Temp Pulse Resp BP Pulse Ox
98.9 F 91 19 87/53 94
09/18/24 18:00 09/18/24 18:45 09/18/24 18:45 09/18/24 17:00 09/18/24 18:00
MDM/Problems Addressed
Differential Diagnosis Includes:
Urinary tract infection, reactive anemia from chemotherapy, sepsis
MDM/Problems Addressed:
63-year-old female with anemia, UTI. Admit to hospitalist. IV cefepime ordered. Type and screen.
Chronic conditions affecting care: Cancer (Lung cancer)
Acute Exacerbation and/or Progression of Chronic Illness: Cancer (Lung cancer)
*Radiology
Radiology exam reviewed: radiology read reviewed (Chest x-ray no acute findings)
*Pulse Oximetry
Patient hypoxic: no
*EKG
Interpreted by ED Provider?: Yes
EKG Intrepretation Date: 09/18/24
EKG Intrepretation Time: 13:46
Interpretation: abnormal
Comparison EKG: changes noted
Heart Rate: 105
Rate: tachycardiac
Rhythm: sinus tachycardia
[place]: normal axis
Interval: normal interval
QRS Pattern: normal QRS
Ischemia: non-specific ST changes
*Diesel Service Technician Interpretation
Rate: tachycardiac
Interpretation: abnormal
Heart Rate: 106
Rhythm: sinus tachycardia
*Critical Care Note
Total Time (30-74mins, 75-104mins- exclusive of procedures): Not Applicable
Data Reviewed
Review of Other/Old Records Reveals: Labs
Patient Management
Social determinants of health affecting care: Living situation
Discussion with other providers: Hospitalist
Escalation/DeEscalation of care consider admission/obs:
admit indicated
ED Attending Note
-
Portions of this chart may have been created with voice recognition software.� Occasional wrong word or��sound alike� substitutions may have occurred due to the inherent limitations of voice recognition software.
Discharge Plan
Departure
Patient Disposition: Admit
Date of Disposition: 09/18/24
Time of Disposition: 16:54
Admit to: Telemetry
Presentation/result/management discussed w/ accepting MD/DO: Hospitalist
Patient with high blood pressure during this ER visit?: No
Condition: Fair
Discharge Problem:
UTI (urinary tract infection), Anemia, Weakness
Interventions
Interventions:
*Risk Screen - Suicide Last Done: 09/18/24 14:02
*General Assessment Last Done: 09/18/24 14:02
*Neglect/Abuse Screening Last Done: 09/18/24 14:02
*ED COVID-19 Vaccine History Last Done: 09/18/24 14:02
ED- Neurological Assessment Last Done: 09/18/24 14:05
ED- Cardiac Assessment Last Done: 09/18/24 16:36
ED Swallowing Screen Last Done: 09/18/24 18:13
[2024-09-18 15:30] LABS: % Basophils 0.2 % (0-2); % Immature Granulocytes 1.3 % (0-0.5); % Lymphocytes 2.9 % (20.5-51.1); % Monocytes 8.2 % (1.7-9.3); % Neutrophils 87.4 % (42.2-75.2); Absolute Immature Granulocytes 0.2 10^3/uL (0-0.05); Absolute Lymphocytes 0.4 10^3/uL (1.2-3.4); Absolute Monocytes 1.1 10^3/uL (0.1-0.6); Hematocrit 20.1 % (37.0-47.0); Hemoglobin 6.3 g/dL (12.0-16.0); INR 1.66; Mean Corp Hgb Conc. 31.3 g/dL (33.0-37.0); Mean Corpuscular Volume 86.3 fL (81.0-99.0); Mean Platelet Volume 10.1 fL (7.4-10.4); Nucleated Red Blood Cells % 0 %; PT 19.5 Sec (11.4-14.6); Platelet Count 75 10^3/uL (130-400); Red Blood Cell Count 2.33 10^6/uL (4.20-5.40); Red Cell Dist. Width 20.3 % (11.5-14.5); White Blood Cell Count 13.7 10^3/uL (4.8-10.8)
[2024-09-18 15:31] LABS: ALT (SGPT) 13 U/L (0-35); APTT 39.2 Sec (23.4-35.0); AST (SGOT) 23 U/L (14-36); Albumin 2.5 g/dl (3.5-5.0); Alkaline Phosphatase 155 U/L (38-126); Blood Urea Nitrogen 16 mg/dl (7-17); Calcium 9.1 mg/dl (8.4-10.2); Carbon Dioxide 29 mmol/L (22-30); Chloride 92 mmol/L (98-107); Estimated Creatinine Clearance 61 ml/min; Glucose 121 mg/dl (70-99); Lactic Acid 0.7 mmol/L (0.7-2.0); Potassium 3.6 mmol/L (3.5-5.1); Sodium 132 mmol/L (135-145); Total Bilirubin 0.7 mg/dl (0.2-1.3); Total Protein 4.9 g/dl (6.3-8.2); eGFR > 60.00
[2024-09-18 15:48] LABS: COVID-19 Antigen Negative (Negative)
--- NOTE | 2024-09-18 17:02 | HPS.HSE ---
Family Physician
-
Family Physician: Misa Tyson
Chief Complaint
-
confusion
weakness
History of Present Illness
63-year-old female with PMH for lung ca braden to brain, chronic kidney disease, GERD, asthma presented to us with generalized weakness and confusion for past few days. Patient was too weak to get up from the bed yesterday and she lowered herself to
the floor. Patient was incontinent of urine last night. Patient had a fever of 101 this morning. Patient denied any headache, dizziness, syncopal episode. Patient denied chest pain, shortness of breath.
Positive urinalysis. Patient received a dose of ceftriaxone in ER. Admitting for further management
Medical History
Past Medical History
Past Medical History: Reports Other
Additional Past Medical History:
CKD
GERD
Overactive bladder
Asthma
Lung cancer
Hypertension
Mitral prolapse
PUD
UTI
Past Surgical History: Reports Other
Additional Past Surgical History:
Right pneumonectomy
Social History
Tobacco: Former Smoker
Alcohol: None
Drug: None
Personal: Single
Living: With Family
Family History
Family History: Not pertinent
Allergies / Home Medications
Allergies reflects when Allergies were last updated in [facility].
Home Medications with original date entered in [facility]
Allergy/Medication List:
Allergies
Allergy/AdvReac Type Severity Reaction Status Date / Time
amitriptyline [From Elavil] Allergy Rash Verified 08/18/21 12:01
Home Medications
spironolactone 50 mg tablet 50 mg PO BID 06/20/12
albuterol sulfate 90 mcg/actuation aerosol inhaler 2 puff inhalation R Q4HPRN PRN sob 03/13/15
fluticasone furoate 200 mcg-vilanterol 25 mcg/dose inhalation powder (Breo Ellipta) 1 ea inhalation R DAILY 01/13/20
albuterol sulfate 2.5 mg/3 mL (0.083 %) solution for nebulization 2.5 mg inhalation R QIDPRN PRN wheezing 09/18/24
azelastine 137 mcg (0.1 %) nasal spray 1 spray intranasal BID 09/18/24
denosumab 60 mg/mL subcutaneous syringe (Prolia) 60 mg SC [id number] 09/18/24
dexamethasone 4 mg tablet 4 mg PO USEASDIRECTD 09/18/24
fluticasone propionate 50 mcg/actuation nasal spray,suspension 2 spray intranasal DAILY 09/18/24
folic acid 1 mg tablet 1 mg PO DAILY 09/18/24
galcanezumab-gnlm 120 mg/mL subcutaneous pen injector (Emgality Pen) 120 mg SC Q28D 09/18/24
granisetron 3.1 mg/24 hour weekly transdermal patch (Sancuso) 3.1 mg transdermal Q7D 09/18/24
lactulose 10 gram/15 mL oral solution 30 ml PO DAILYPRN PRN constipation 09/18/24
lidocaine 5 % topical patch 3 patch topical DAILY 09/18/24
metoclopramide HCl 5 mg tablet 5 mg PO QID 09/18/24
morphine 30 mg tablet,extended release 30 mg PO BID 09/18/24
naloxegol 25 mg tablet (Movantik) 25 mg PO DAILY 09/18/24
olanzapine 5 mg tablet 5 mg PO HSPRN PRN nausea/vomiting 09/18/24
oxycodone 5 mg tablet 10 mg PO Q4HPRN PRN moderate to severe pain 09/18/24
pregabalin 75 mg capsule 75 mg PO BID 09/18/24
rizatriptan 10 mg tablet 10 mg PO DAILYPRN PRN migraine 09/18/24
simethicone 80 mg chewable tablet 160 mg PO QIDPRN PRN flatulence 09/18/24
solifenacin 5 mg tablet 5 mg PO DAILY 09/18/24
triamcinolone acetonide 0.1 % topical cream 1 applic topical BIDPRN PRN rash 09/18/24
ubrogepant 100 mg tablet (Ubrelvy) 100 mg PO ONCE PRN migraine 09/18/24
Review of Systems
-
Constitutional: Reports No Symptoms
EENT: Reports No Symptoms
Respiratory: Reports No Symptoms
Cardiac: Reports No Symptoms
Abdomen/GI: Reports No Symptoms
: Reports No Symptoms
Musculoskeletal: Reports No Symptoms
Skin: Reports No Symptoms
Neurological: Reports No Symptoms
Endocrine: Reports No Symptoms
Hematologic/Lymphatic: Reports No Symptoms
Psych: Reports No Symptoms
Physical Exam
Vital Signs
Vital Signs
Temp Pulse Resp BP Pulse Ox
98.0 F 103 20 103/64 99
09/18/24 13:39 09/18/24 14:00 09/18/24 13:39 09/18/24 13:39 09/18/24 13:45
Physical Exam
General: Well Developed, Well Nourished and No Apparent Distress
HEENT: NormoCephalic, Moist mucous membranes and Atraumatic
Respiratory: Clear
Cardiac: S1/S2 and Regular Rhythm; No Murmur or Rub
GI: Soft, Non Tender, Non Distended and Normal Bowel Sounds; No Organomegaly
Rectal: Deferred by Provider
Musculoskeletal: No Clubbing, No Cyanosis and No Edema
Skin: No Rash
Neuro: Nonfocal/grossly intact
Psych: Confused
Laboratory Results
-
09/18/24 15:07
09/18/24 15:07
Laboratory Results
PT 19.5 Sec (11.4-14.6) H 09/18/24 15:07
INR 1.66 09/18/24 15:07
APTT 39.2 Sec (23.4-35.0) H 09/18/24 15:07
Lactic Acid 0.7 mmol/L (0.7-2.0) 09/18/24 15:07
Total Bilirubin 0.7 mg/dl (0.2-1.3) 09/18/24 15:07
AST 23 U/L (14-36) 09/18/24 15:07
ALT 13 U/L (0-35) 09/18/24 15:07
Alkaline Phosphatase 155 U/L (38-126) H 09/18/24 15:07
Data Reviewed
-
Lab Data: Labs Reviewed by me
Impression/Plan
-
# Metabolic encephalopathy likely from urinary tract infection
-Sepsis as evident by WBC 13.7, tachycardia
-Blood culture sent from ER
-IV cefepime continued
-Tylenol as needed for fever
-Continue to monitor
# Generalized weakness likely from UTI/anemia
-PT/OT consulted
# Anemia of chronic disease
-Hemoglobin 6.3
-Will order 1 unit of blood
-Monitor hemoglobin in the morning
-obtain iron panel, as well as haptoglobin, retic, LDH
# Metastatic cancer to brain
-Follows [facility]
-Her last IV chemo was September 03, next due in 3 weeks oncology
-Lidocaine patch, morphine, Reglan, olanzapine, oxycodone, Lyrica continued
# Chronic hyponatremia likely from metastatic disease
-Sodium 132
-Continue to monitor
# Tachycardia likely from anemia/UTI
-EKG with sinus tachycardia
-Fluids continued
# History of asthma
-Patient not in acute exacerbation
- nebs from home continued
# Overactive bladder
-Solifenacin continued
# Essential hypertension
-spironolactone held
# DVT prophylaxis
-SCD
# CODE STATUS-full code
[2024-09-18] MEDS: MAXIPIME 2000 MG IV (17:29)
--- NOTE | 2024-09-18 18:03 | W.PN.UPDATE ---
Update Note
Progress Note Update
This is an addendum to the H&P written by Hyacinth Dorado on 09/18/2024. Patient seen and examined independently with MEDICAL DRIVER.
63-year-old female past medical history of lung cancer on chemotherapy last received on 09/03 presenting with confusion and weakness and increased urinary frequency.
Patient arrives tachycardic. Labs show leukocytosis, anemia with hemoglobin 6.3 from 7.7 previously, thrombocytopenia with platelets of 75. Chest x-ray without any acute changes. Urinalysis appears to show infection.
Patient clinically septic source is likely UTI. Check blood cultures, urine culture, IV fluids, cefepime.
Patient is also anemic thrombocytopenia secondary to chemotherapy. 1 unit blood transfusion. Check iron studies, B12 and folate, reticulocyte count, LDH. Oncology consulted.
[2024-09-18 18:11] LABS: LDH 245 U/L (120-246); Reticulocyte Count 2.5 % (0.4-2.8)
[2024-09-18 18:13] LABS: Iron < 20 ug/dl (37-170)
[2024-09-18 18:20] LABS: Total Iron Binding Capacity 147 ug/dl (265-497)
[2024-09-18 18:28] LABS: Lactic Acid 0.7 mmol/L (0.7-2.0)
[2024-09-18 19:19] LABS: Folate > 20.0 ng/ml (2.76-20); Vitamin B12 > 1000 pg/ml (239-931)
--- NOTE | 2024-09-18 20:30 | PTCARENOTE ---
Received pt via stretcher from the ED. Pt AAOx3, drowsy, lethargic and generalized weakness. HR in the 90's in NSR on the monitor. POX 95% on RA. Lungs absent on right, hx right lung removal, dec @ left base. Pt inc of large formed bm. Donna care
provided, foam dressing applied to sacrum for protection. Palpable peripheral pulses present. Pale skin t/o. Right heel DTI noted, foam applied. Right middle chest bulge noted, pt states, 'that my tumor', remains open to air. Left SQ port in place
now infusing NSS@80ml/hr as ordered. Pt positioned per comfort. SBP in the 70's. Awaiting blood transfusion. Pt denies any complaints at this time. Family updated at bedside on plan of care. Will continue to monitor.
[2024-09-18] MEDS: NSS 1000 IV (20:45)
--- NOTE | 2024-09-18 23:21 | PTCARENOTE ---
Blood transfusion complete. Pt remains hypotensive, SBP 70-80. House [employer] made aware, awaiting orders. IVF infusing as ordered. Pt resting comfortably. Will continue to monitor.
[2024-09-18] MEDS: REGLAN 5 MG PO (23:38)
[2024-09-18] MEDS: ProAmatine 5 MG PO (23:38)
[2024-09-18] MEDS: MS CONTIN (EXTENDED RELEASE) PO (23:38)
[2024-09-18] MEDS: REGLAN PO (23:39)
[2024-09-18] MEDS: LYRICA PO (23:39)
[2024-09-18] MEDS: NSS 500 IV (23:39)
--- NOTE | 2024-09-18 23:48 | PTCARENOTE ---
5mg Midodrine administered as ordered. 500ml NSS bolus now infusing as ordered. Will continue to monitor.
[2024-09-19] VITALS (35 sets, daily range): BP systolic 81–137; BP diastolic 42–97; PULSE 102; O2SAT 96; BMI 19.5
[2024-09-19] MEDS: ROXICODONE 10 MG PO ×2 (01:11→09:55)
[2024-09-19] MEDS: MAXIPIME 2000 MG IV ×3 (01:11→18:10)
[2024-09-19] MEDS: STERILE WATER FOR INJECTION 10 ML IV ×3 (01:12→18:11)
[2024-09-19] MEDS: LEVOPHED 250 IV (02:15)
--- NOTE | 2024-09-19 04:06 | PTCARENOTE ---
Pt with no urine output. bladder scanned for 636ml. Pt reports she can void if sitting on toilet. Pt assisted to BSC. pt had massive formed BM. Pt able to void 100ml dark silvio urine. Will give pt more time to void as her abd is now emptied out. Pt
states she feels better having had large bm. pt reports recent disimpaction and has had issues with constipation. Will attempt to void again shortly. Levophed now infusing to keep MAP>65. NO other changes in assessment noted at [facility] time. Will
continue to monitor.
[2024-09-19] MEDS: SYMBICORT 160/4.5 MCG INHALER 2 PUFF INH ×2 (07:22→20:11)
[2024-09-19 08:05] LABS: Hematocrit 25.2 % (37.0-47.0); Hemoglobin 8.3 g/dL (12.0-16.0); Mean Corp Hgb Conc. 32.9 g/dL (33.0-37.0); Mean Corpuscular Hgb 29.1 pg (27.0-31.0); Mean Corpuscular Volume 88.4 fL (81.0-99.0); Mean Platelet Volume 10.8 fL (7.4-10.4); Platelet Count 108 10^3/uL (130-400); Red Blood Cell Count 2.85 10^6/uL (4.20-5.40); Red Cell Dist. Width 18.6 % (11.5-14.5); White Blood Cell Count 20.8 10^3/uL (4.8-10.8)
[2024-09-19] MEDS: FOLVITE 1 MG PO (08:10)
[2024-09-19] MEDS: LIDOCAINE 4% PATCH 1 PATCH TOPICAL (08:11)
[2024-09-19] MEDS: MS CONTIN (EXTENDED RELEASE) 30 MG PO ×2 (08:11→20:00)
[2024-09-19] MEDS: LYRICA 75 MG PO ×2 (08:11→20:00)
[2024-09-19] MEDS: REGLAN 5 MG PO ×4 (08:12→23:12)
[2024-09-19] MEDS: VESICARE 5 MG PO (08:12)
--- NOTE | 2024-09-19 10:00 | PTCARENOTE ---
Complete assessment done and documented. Pt oriented x3, but very forgetful. Post transfusion hgb=8.3. HR SR as per monitor, Levophed infusion received at 2 mcg/min, Keeping MAP=/> 65, presently decreased to 1 mcg/min. Pt on R/A, no BSs noted on r
side, diminished at L base. O2 sat=94%
Pt assisted to commode and then to chair. Pt had sm formed BM, and voided yellow urine in commode. Pt tolerating OOB in chair, and eating breakfast. Teeth brushed.
[2024-09-19] MEDS: NSS 1000 IV ×2 (10:06→21:08)
--- NOTE | 2024-09-19 12:16 | CON.ONC ---
Impression
Impression
- Sepsis with UTI
- acute on chronic anemia
- chemotherapy induced thrombocytopenia
- leukocytosis
- stage IV lung adenocarcinoma with brain, liver, bone metastases
Plan
Plan
# Anemia
- hgb on presentation 6.3 g/dl with most recent prior on 09/01 of 7.7.
- suspect element of chemotherapy induced anemia however suspect likely inflammatory component. ferritin high however with malignancy, liver mets unreliable and with undetectable IS element of FERNY also may be contributing. will hold off on IV iron
however with c/f active infection. denies bleeding symptoms. stool hemoccult ordered.
- hgb up to 8.3 g/dl after 1 unit pRBCs.
- CBC daily, transfuse for hgb < 7.5 g/dl.
# Leukocytosis
- c/f UTI on UA, cultures pending. fever on presentation. No G-CSf given with chemo 09/03 due to WBC of 27 on day of tx. therefore WBC due to infection vs. malignancy
- continue abx.
- monitor fever curve, WBC trend.
# stage IV NSCLC
- follows with Dr. Rodríguez at [facility]
- on carbo/pem/keytruda, s/p C3
- no signs or symptoms to suggest ICI.
- solitary brain foci on MRI in July, not treated due to small size. ORdered repeat brain MRI with persistent confusion.
- defer to primary oncology team for ongoing management.
Patient History
History of Present Illness
63-year-old female with PMH for lung ca braden to brain, chronic kidney disease, GERD, asthma who presented to ED with generalized weakness and confusion. Pt was febrile with 101 in ED, tachycardic. Labs showed hgb 6.3 g/dl with rise to 8.3 g/dl
after 1 unit, WBC 13.7, plts 75. UA with trace LE, + WBC, bacteria. She was admitted for further management of UTI with sepsis, acute on chronic anemia. Anemia work-up with retic 2.5%, ferritin 668 ng/ml, IS undetectable, normal B12, folate.
She has a hx of localized lung cancer s/p pneumonectomy with recurrence with brain, liver, bone lesions. She follows with [facility], Dr Espitia and started palliative chemoimmunotherapy in July. She is on treatment with last cycle of
carbo/pem/Keytruda on 09/03. Of note, she was receiving G-CSF w/ tx however held with recent cycle bc WBC 27 on day of tx. Her brain MRI on 07/16 noted 'single foci in left parietal lobe'. Due to small size rad/onc held off on any tx with plan to
repeat brain MRI this month. Hgb prior to recent tx was 7.7 g/dl on 09/01 during ED visit for constipation. Denies melena, BRBR, hemoptysis. Pt still with confusion, word-finding difficulty. Per family this has been progressive over last several
weeks
Past-Medical/Surgical History
Past Medical History
Past Medical History: Reports Other
Additional Past Medical History:
CKD
GERD
Overactive bladder
Asthma
Lung cancer
Hypertension
Mitral prolapse
PUD
UTI
Past Surgical History: Reports Other
Additional Past Surgical History:
Right pneumonectomy
Patient Medication
�Medication �Instructions �Recorded �Confirmed �Last Taken �Type
spironolactone 50 mg tablet 50 mg PO BID Fluid 06/20/12 09/18/24 01/13/20 History
Retention/Swelling
albuterol sulfate 90 mcg/actuation 2 puff inhalation R Q4HPRN PRN sob 03/13/15 09/18/24 Unknown History
aerosol inhaler
fluticasone furoate 200 1 ea inhalation R DAILY 01/13/20 09/18/24 01/13/20 History
mcg-vilanterol 25 mcg/dose Lung/Breathing Issues
inhalation powder (Breo Ellipta)
albuterol sulfate 2.5 mg/3 mL 2.5 mg inhalation R QIDPRN PRN 09/18/24 09/18/24 Unknown History
(0.083 %) solution for nebulization wheezing
azelastine 137 mcg (0.1 %) nasal 1 spray intranasal BID Allergies 09/18/24 09/18/24 Unknown History
spray
denosumab 60 mg/mL subcutaneous 60 mg SC [id number] osteoporosis 09/18/24 09/18/24 Unknown History
syringe (Prolia)
dexamethasone 4 mg tablet 4 mg PO USEASDIRECTD 09/18/24 09/18/24 Unknown History
Anti-Inflammatory
fluticasone propionate 50 2 spray intranasal DAILY Allergies 09/18/24 09/18/24 Unknown History
mcg/actuation nasal
spray,suspension
folic acid 1 mg tablet 1 mg PO DAILY Supplement 09/18/24 09/18/24 Unknown History
galcanezumab-gnlm 120 mg/mL 120 mg SC Q28D headache/migrain 09/18/24 09/18/24 Unknown History
subcutaneous pen injector preventi
(Emgality Pen)
granisetron 3.1 mg/24 hour weekly 3.1 mg transdermal Q7D 09/18/24 09/18/24 Unknown History
transdermal patch (Sancuso) Gastrointestinal Issue
lactulose 10 gram/15 mL oral 30 ml PO DAILYPRN PRN constipation 09/18/24 09/18/24 Unknown History
solution
lidocaine 5 % topical patch 3 patch topical DAILY LOWER BACK 09/18/24 09/18/24 Unknown History
metoclopramide HCl 5 mg tablet 5 mg PO QID Gastrointestinal Issue 09/18/24 09/18/24 Unknown History
morphine 30 mg tablet,extended 30 mg PO BID Pain 09/18/24 09/18/24 Unknown History
release
naloxegol 25 mg tablet (Movantik) 25 mg PO DAILY Constipation 09/18/24 09/18/24 Unknown History
olanzapine 5 mg tablet 5 mg PO HSPRN PRN mental health 09/18/24 09/18/24 Unknown History
oxycodone 5 mg tablet 10 mg PO Q4HPRN PRN moderate to 10/19/24 10/19/24 Unknown History
severe pain
pregabalin 75 mg capsule 75 mg PO BID Pain 09/18/24 09/18/24 Unknown History
rizatriptan 10 mg tablet 10 mg PO DAILYPRN PRN migraine 09/18/24 09/18/24 Unknown History
simethicone 80 mg chewable tablet 160 mg PO QIDPRN PRN flatulence 09/18/24 09/18/24 Unknown History
solifenacin 5 mg tablet 5 mg PO DAILY Urinary Issue 09/18/24 09/18/24 Unknown History
triamcinolone acetonide 0.1 % 1 applic topical BIDPRN PRN rash 09/18/24 09/18/24 Unknown History
topical cream
ubrogepant 100 mg tablet (Ubrelvy) 100 mg PO ONCE PRN migraine 09/18/24 09/18/24 Unknown History
Active Medications
Generic Name Dose Route Start Last Admin
Trade Name Freq PRN Reason Stop Dose Admin
Acetaminophen 650 mg 09/18/24 19:58
Acetaminophen 325 Mg Tablet PO 10/16/24 19:57
Q4HPRN PRN
OLIVARES/mild pain/temp > 100.4 F
Acetaminophen 650 mg 09/18/24 19:58
Acetaminophen 650 Mg Rectal Suppository RECTAL 10/16/24 19:57
Q4HPRN PRN
OLIVARES/ mild pain/ temp >/= 100.4F
Albuterol 2 puff 09/18/24 19:58
Albuterol Hfa [90 Mcg/Dose] Inhaler INH
R Q4HPRN PRN
sob
Protocol
Albuterol Sulfate 2.5 mg 09/18/24 19:58
Albuterol Nebs 2.5 Mg/3 Ml Ampul INH
R QIDPRN PRN
wheezing
Protocol
Budesonide/Formoterol Fumarate 2 puff 09/19/24 08:00 09/19/24 07:22
Symbicort Inhaler 160/4.5 INH 10/17/24 07:59 2 puff
R BID DIALLO Administration
Cefepime HCl 2,000 mg 09/19/24 02:00 09/19/24 09:57
Cefepime Hcl 2,000 Mg/12.5 Ml Vial IV 2,000 mg
Q8H DIALLO Administration
Folic Acid 1 mg 09/19/24 08:00 09/19/24 08:10
Folic Acid 1 Mg Tablet PO 10/17/24 07:59 1 mg
DAILY DIALLO Administration
Sodium Chloride 1,000 mls @ 80 mls/hr 09/18/24 19:58 09/19/24 10:06
Nss IV 1,000 mls
[id number] DIALLO Administration
Norepinephrine Bitartrate 4 mg in 250 mls @ 0 mls/hr 09/18/24 23:30 09/19/24 02:15
Levophed IV 250 mls
PER PROTOCOL DIALLO Administration
Protocol
Per Protocol
Lactulose 20 grams 09/18/24 22:30
Lactulose Solution (20 Grams/30 Ml) 30 Ml Cup PO 10/16/24 22:29
DAILYPRN PRN
CONSTIPATION
Lidocaine 0 patch 09/19/24 08:00 09/19/24 08:11
Lidocaine 4% Topical Patch TOPICAL 10/17/24 07:59 1 patch
DAILY DIALLO Administration
Metoclopramide HCl 5 mg 09/18/24 19:58 09/19/24 08:12
Metoclopramide 5 Mg Tablet PO 10/16/24 19:57 5 mg
QID DIALLO Administration
Morphine Sulfate 30 mg 09/18/24 20:00 09/19/24 08:11
Morphine 30 Mg Extended Release Tablet PO 10/02/24 19:59 30 mg
BID DIALLO Administration
Naloxegol [Movantik] 0 mg 09/19/24 08:00
25mg Tablet: One PO 10/17/24 07:59
Tablet Po Daily DAILY DIALLO
Olanzapine 5 mg 09/18/24 19:58
Olanzapine 5 Mg Tablet PO 10/16/24 19:57
HSPRN PRN
nausea/vomiting
Oxycodone HCl 10 mg 09/18/24 19:58 09/19/24 09:55
Oxycodone 5 Mg Regular Release Tablet PO 10/02/24 19:57 10 mg
Q4HPRN PRN Administration
moderate to severe pain
Patch Removal 0 patch 09/19/24 20:00
Remove Lidocaine Patch REMOVE 10/17/24 19:59
DAILY@2000 DIALLO
Pregabalin 75 mg 09/18/24 20:00 09/19/24 08:11
Pregabalin 75 Mg Capsule PO 10/16/24 19:59 75 mg
BID DIALLO Administration
Simethicone 160 mg 09/18/24 19:58
Simethicone 80 Mg Chewable Tablet PO 10/16/24 19:57
QIDPRN PRN
flatulence
Solifenacin 5 mg 09/19/24 08:00 09/19/24 08:12
Solifenacin Succinate (Vesicare) 5 Mg Tablet PO 10/17/24 07:59 5 mg
DAILY DIALLO Administration
Sterile Water 10 ml 09/19/24 02:00 09/19/24 09:57
Sterile Water For Injection 10 Ml Vial IV 10/17/24 01:59 10 ml
Q8H DIALLO Administration
Triamcinolone Acetonide 0 applic 09/18/24 19:58
Tramcinolone Acetonide 0.1% (Cream) 15 Gram Tube TOPICAL 10/16/24 19:57
BIDPRN PRN
rash/irritation
Review of Systems
-
History Source: Patient and Family
Constitutional: Reports Fatigue; Denies Fever
Respiratory: Reports Cough; Denies Trouble Breathing
Cardiac: Denies Chest Pain
GI: Denies Abdominal Pain
: Denies Dysuria or Incontinence
Musculoskeletal: Denies Joint Pain
Neuro: Reports Weakness; Denies Dizzy, Headache or Lightheadedness
Hematologic/Lymphatic: Denies Bleeding or Bruising
Physical Exam
-
General: Well Developed, No Apparent Distress and Conversant
HEENT: Negative Jaundice
Cardiology: Normal Sinus Rhythm
Pulmonary: Clear
GI: Soft; Negative Distended
Extremities: Negative Edema
Neurology: Non Focal and No Lateralizing Symptoms; Negative No Word Finding Difficulty
Psych: Calm
Labs
Lab Results
WBC 20.8 10^3/uL (4.8-10.8) H 09/19/24 05:15
RBC 2.85 10^6/uL (4.20-5.40) L 09/19/24 05:15
Hgb 8.3 g/dL (12.0-16.0) L D 09/19/24 05:15
Hct 25.2 % (37.0-47.0) L 09/19/24 05:15
MCV 88.4 fL (81.0-99.0) 09/19/24 05:15
MCH 29.1 pg (27.0-31.0) 09/19/24 05:15
MCHC 32.9 g/dL (33.0-37.0) L 09/19/24 05:15
RDW 18.6 % (11.5-14.5) H 09/19/24 05:15
Plt Count 108 10^3/uL (130-400) L D 09/19/24 05:15
MPV 10.8 fL (7.4-10.4) H 09/19/24 05:15
Abs Immat Gran (auto) 0.2 10^3/uL (0-0.05) H 09/18/24 15:07
Absolute Neuts (auto) 12.0 10^3/uL (1.4-6.5) H 09/18/24 15:07
Absolute Lymphs (auto) 0.4 10^3/uL (1.2-3.4) L 09/18/24 15:07
Absolute Monos (auto) 1.1 10^3/uL (0.1-0.6) H 09/18/24 15:07
Absolute Eos (auto) 0.0 10^3/uL (0-0.7) 09/18/24 15:07
Absolute Basos (auto) 0.0 10^3/uL (0-0.2) 09/18/24 15:07
Immature Gran % 1.3 % (0-0.5) H 09/18/24 15:07
Neutrophils % 87.4 % (42.2-75.2) H 09/18/24 15:07
Lymphocytes % 2.9 % (20.5-51.1) L 09/18/24 15:07
Monocytes % 8.2 % (1.7-9.3) 09/18/24 15:07
Eosinophils % 0.0 % (0-6) 09/18/24 15:07
Basophils % 0.2 % (0-2) 09/18/24 15:07
Creatinine 0.7 mg/dL (0.6-1.0) 09/18/24 15:07
Vital Signs
Vital Signs
Temp Pulse Resp BP Pulse Ox
98.3 F 95 11 137/67 94
09/19/24 11:00 09/19/24 12:00 09/19/24 12:00 09/19/24 11:51 09/19/24 12:00
--- NOTE | 2024-09-19 12:34 | PTCARENOTE ---
Pt assisted (1 person) to commode and then back to bed. Levophed now off, MAP 67. Pt turned and made comfortable.
--- NOTE | 2024-09-19 16:00 | PTCARENOTE ---
Levophed restarted at 2 mcg/min for MAP 55. Pt sleeping. Dr Howell updated. Pt's sister in room visiting.
--- NOTE | 2024-09-19 16:00 | W.PN.HOSP.TC ---
Today's Communication/Plan
-
await Cx data
continue in IMU
Assessment / Plan
Assessment / Plan
# Metabolic encephalopathy likely from urinary tract infection
better, but not back to baseline
-Sepsis as evident by WBC 13.7, tachycardia
-Blood culture sent from ER, Ur Cx pending
-IV cefepime continued
-Tylenol as needed for fever
-Continue to monitor
# Generalized weakness likely from UTI/anemia
-PT/OT consulted
Hypotension
was on Levophed 4mcg during night, was weaned off to none, but pressure has since dropped and MAP dropped to 55 mm and Levophed has been restarted. To continue in IMU (ICU overflow) for now
# Anemia of chronic disease
-Hemoglobin 6.3-Was given 1 unit of blood-->8.3
-Monitor hemoglobin in the morning
-obtain iron panel, as well as haptoglobin, retic, LDH
-thrombocytopenia better
plt 75-->108k
# Metastatic cancer to brain
-Follows [facility]
-Her last IV chemo was September 03, next due in 3 weeks oncology
-Lidocaine patch, morphine, Reglan, olanzapine, oxycodone, Lyrica continued
# Chronic hyponatremia likely from metastatic disease
-Sodium 132
-Continue to monitor
# Tachycardia likely from anemia/UTI
-EKG with sinus tachycardia
-Fluids continued
# History of asthma
-Patient not in acute exacerbation
- nebs from home continued
# Overactive bladder
-Solifenacin continued
# Essential hypertension
-spironolactone held
# DVT prophylaxis
-SCD
transfer to tele
# CODE STATUS-full code
Anticipated Discharge: > 48 hours
Subjective/Interval History
-
Date of Service: September 19, 2024
Feels better than at time of admission
Objective Data
-
Labs:
Laboratory Results
09/19/24
05:15
WBC 20.8 H
Hgb 8.3 L D
Hct 25.2 L
Plt Count 108 L D
Vital Signs:
Vital Signs
Temp Pulse Resp BP Pulse Ox
98.3 F 92 12 119/97 94
09/19/24 11:00 09/19/24 13:30 09/19/24 13:30 09/19/24 13:00 09/19/24 13:30
I&O
09/18/24 09/19/24 09/20/24
06:59 06:59 06:59
Intake Total 2160 / 2247.5 630.1 / 630.1
Output Total 100 / 100 100 / 100
Balance 2060 / 2147.5 530.1 / 530.1
Review of Systems
-
History Source: Patient and Coordinated Provider
Constitutional: Denies Fever
EENT: Reports No Symptoms Reported
Respiratory: Reports No Symptoms
Cardiac: Reports No Symptoms
Abdomen/GI: Reports No Symptoms
Genitourinary: Reports No Symptoms; Denies Dysuria, Frequency or Flank Pain
Neuro: Reports No Symptoms
Physical Exam
-
General: Well Developed, Well Nourished and No Apparent Distress
HEENT: Normocephalic, Atraumatic and Moist Mucous Membranes
Respiratory: Clear to Auscultation; Negative Wheezes, Rales or Rhonchi
Cardiac: Regular Rhythm and S1/S2
GI: Nontender and Nondistended
Musculoskeletal: No Clubbing, No Cyanosis and No Edema
Skin: Warm and Dry
Neuro: Awake and Alert
--- NOTE | 2024-09-19 19:00 | PTCARENOTE ---
Pt had freq urination today, usu between 100-150 ml/ea void. Bladder scan done =727ml. Pt then wanted to try use the commode again, and was assisted to the commode, where she just voided 600 ml of yellow urine. Pt now OOB to chair again, eating her
dinner.
--- NOTE | 2024-09-19 21:30 | PTCARENOTE ---
Report received from previous shift RN [id number]. Pt in bed, AAO, slightly confused/forgetful to situation. Pt with generalized weakness, chronic back back with Lidoderm patch to lower back. Lung sounds are absent on R, decreased in L base, pox 95% on
room air, pt denies cough/SOB. Telemetry rhythm reveals ST, HR 100-110's, no edema noted, palpable peripheral pulses present. HypoBS, abdomen soft nontender, pt tolerating regular diet, poor appetite noted. Pt assisted OOB to BSC by fellow RN at
change of shift, voided 600ml urine. Skin as documented. L SQ port with IVF per order and Levophed at 1 mcg/min per parameters, will taper as able. Bed alarm on and monitoring, safe environment maintained, call costello within reach. Will monitor
closely.
[2024-09-20] VITALS (25 sets, daily range): BP systolic 99–137; BP diastolic 52–86; BMI 20.9
[2024-09-20] MEDS: MAXIPIME 2000 MG IV ×3 (01:43→17:45)
[2024-09-20] MEDS: STERILE WATER FOR INJECTION 10 ML IV ×3 (01:44→17:45)
--- NOTE | 2024-09-20 04:21 | PTCARENOTE ---
Pt slept well throughout the night. Voided 600ml at change of shift, no void since.Assisted pt OOB to BSC to attempt voiding around 0330, pt dribbled small amount urine but unable to void when seated on commode. Assisted back to bed, bladder scan
performed with result of >730ml. Discussed w bam COTTON PULLER Pastor. COTTON PULLER entered order for straight cath. Straight cath performed without incidence, 650ml dark yellow malodorous urine drained. Pt states relief. Complete CHG bath provided, assisted pt with
oral care. Will monitor.
[2024-09-20 04:25] LABS: Mean Corp Hgb Conc. 31.8 g/dL (33.0-37.0); Mean Corpuscular Hgb 28.7 pg (27.0-31.0); Mean Corpuscular Volume 90.2 fL (81.0-99.0); Red Blood Cell Count 2.44 10^6/uL (4.20-5.40); Red Cell Dist. Width 19.1 % (11.5-14.5); White Blood Cell Count 16.4 10^3/uL (4.8-10.8)
[2024-09-20 04:41] LABS: Platelet Count 84 10^3/uL (130-400)
[2024-09-20 04:50] LABS: Hepatitis C Antibody Negative (Negative)
[2024-09-20 04:53] LABS: Blood Urea Nitrogen 10 mg/dl (7-17); Calcium 8.2 mg/dl (8.4-10.2); Carbon Dioxide 24 mmol/L (22-30); Chloride 101 mmol/L (98-107); Estimated Creatinine Clearance 71 ml/min; Glucose 87 mg/dl (70-99); Potassium 3.2 mmol/L (3.5-5.1); Sodium 135 mmol/L (135-145); eGFR > 60.00
[2024-09-20] MEDS: KCL 270 MEQ IV (06:24)
[2024-09-20] MEDS: SYMBICORT 160/4.5 MCG INHALER 2 PUFF INH ×2 (07:13→19:48)
[2024-09-20] MEDS: VESICARE 5 MG PO (07:46)
[2024-09-20] MEDS: MS CONTIN (EXTENDED RELEASE) 30 MG PO ×2 (07:46→19:48)
[2024-09-20] MEDS: FOLVITE 1 MG PO (07:46)
[2024-09-20] MEDS: REGLAN 5 MG PO ×4 (07:46→22:11)
[2024-09-20] MEDS: LYRICA 75 MG PO ×2 (07:46→19:48)
[2024-09-20] MEDS: LIDOCAINE 4% PATCH 1 PATCH TOPICAL (07:47)
--- NOTE | 2024-09-20 09:08 | PTCARENOTE ---
Assumed care of pt. VSS. Pt A&O X2, unable to understand how to make an 'outside call' using her cell phone. Explained multiple times that calling on her cell phone is the same as outside hospital procedure. Assist X1 OOB to BSC and then chair.
Heme tested smear of stool from sacral foam that pt insisted RN remove due to discomfort-unable to convince pt that foam was not lidoderm patch. Pt somewhat unsteady on her feet in transfer to chair. Assessment as noted
--- NOTE | 2024-09-20 10:04 | W.PN.HOSP.TC ---
Addendum entered and electronically signed by Amadeo Rivera MD 09/20/24 22:46:
Attending Addendum-
I saw and evaluated the patient. I reviewed the resident�s note and agree with findings and plan as documented in the resident�s note. Sub: States she fees better today. Feels weak but no other complaints. denies melena. Full 12 point ROS reviewed
and negative except as documented Exam: Vitals reviewed in chart GEN-NAD heart RRR lungs clear NO BS right Left CTA abd soft NT chest Left upper port in place
# Metabolic encephalopathy/septic shock secondary to urinary tract infection
- improved but not back to baseline
- now off Levophed
- Blood culture-NGTD x 48,
- Ur Cx-prelim GP organism
- cefepime continued
- Tylenol as needed for fever
- Continue to monitor
# Generalized weakness likely from UTI/anemia
-PT/OT consulted
# Hypotension
- was on Levophed was weaned off
- hold spironolactone
- transfer to tele
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
- taking morphine 30mg PO BID and oxy 10 prn at home
- monitor MS closely
# Anemia of chronic disease
-Hemoglobin 7.0-TX 1 unit of blood repeat hb 2 hours post
-Monitor hemoglobin in AM
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
-Follows onc at [facility]
-last IV chemo September 03, next due in 3 weeks
-Lidocaine patch, morphine, Reglan, olanzapine, oxycodone, Lyrica continued
# Chronic hyponatremia likely from metastatic disease
-Sodium normalized with IVF
-Continue to monitor
# Tachycardia likely from anemia/UTI
-EKG with sinus tachycardia
-increase IVF
# Acute CVA
- MRI 09/20-
1. TINY 3.2 mm ACUTE ISCHEMIC INFARCT in the posterior LEFT PARIETAL LOBE JAQUEZ RADIATA.
2. 1.2 cm OSSEOUS METASTASIS in the RIGHT FRONTAL BONE
- neuro c/s
- hold asa per hemeonc
- start statin
- stoke order set
# History of asthma
-Patient not in acute exacerbation
- nebs from home continued
# Overactive bladder
-Solifenacin continued
# Essential hypertension
-spironolactone held
# DVT prophylaxis
-SCD
Dispo Possible new SNF on DC
transfer to tele
Time spent coordinating care, review of plan of care with resident, personally reviewed records in EMR, med rec, consults, notes, labs, radiology, d/w nursing neuro and hemeonc � 59 mins
Original Note:
Today's Communication/Plan
-
Continue antibiotics
MRI pending
Tranfer to tele
d/c fluids as oral intake good
Assessment / Plan
Assessment / Plan
# Metabolic encephalopathy 2/2 septic shock 2/2 likely urinary tract infection
-Sepsis with WBC 20.8 yesterday to 16.4
-IV cefepime continue
-Blood culture sent from ER, Ur Cx pending
-IV cefepime continued
-telemetry as BP stable but with tachy
-Tylenol as needed for fever
# Generalized weakness likely from UTI/anemia
-PT/OT consulted
-Recommended SNF rehab when discharge
#Hypotension
-Levophed d/c last night and BP has remained stable
-d/c fluids as pt now has good oral intake
-Transfer to floors on tele
# Anemia of chronic disease
-Hemoglobin drop to 7.0 Give 1 unit blood
-Hemoccult stool (-)
-H&H repeat in 6 hrs
-likely mixed anemia of chronic dz and iron def/ Ferritin high, iron low. Consider oral iron
-Heme-onc believes there is an element of chemotherapy induced anemia with an inflammatory component
-thrombocytopenia labile
plt 75-->108k --> 87k
# Metastatic cancer to brain
-Follows [facility]
-Her last IV chemo was September 03, next due in 3 weeks oncology
-Lidocaine patch, morphine, Reglan, olanzapine, oxycodone, Lyrica continued
-MRI ordered for today. Pending
# Chronic hyponatremia likely from metastatic disease
-Sodium 135
-Continue to monitor
# Tachycardia likely from anemia/UTI
-EKG with sinus tachycardia
-fluids d/c as oral intake good, but monitor on tele
# History of asthma
- nebs from home as needed
# Overactive bladder
-Solifenacin continue
# Essential hypertension
-spironolactone held until BP stabilizes
# DVT prophylaxis
-SCD
transfer to tele
# CODE STATUS-full code
Anticipated Discharge: 24 - 48 hours
Subjective/Interval History
-
Date of Service: September 20, 2024
Objective Data
-
Labs:
Laboratory Results
09/20/24
03:31
WBC 16.4 H
Hgb 7.0 L
Hct 22.0 L
Plt Count 84 L D
Sodium 135
Potassium 3.2 L
Chloride 101
Carbon Dioxide 24
BUN 10
Creatinine 0.4 L
Glucose 87
Calcium 8.2 L
Vital Signs:
Vital Signs
Temp Pulse Resp BP Pulse Ox
98.0 F 108 20 130/85 94
09/20/24 08:00 09/20/24 08:00 09/20/24 08:00 09/20/24 08:00 09/20/24 08:00
I&O
09/19/24 09/20/24 09/21/24
06:59 06:59 06:59
Intake Total 2160 / 2247.5 2641.6 / 2789.1 362.5 / 362.5
Output Total 100 / 100 1550 / 1550 100 / 100
Balance 2060 / 7.5 1091.6 / 1239.1 262.5 / 262.5
Review of Systems
-
History Source: Patient
EENT: Reports No Symptoms Reported
Respiratory: Reports No Symptoms
Cardiac: Reports No Symptoms
Abdomen/GI: Reports No Symptoms
Genitourinary: Reports No Symptoms
Neuro: Reports Weakness
Physical Exam
-
General: Well Developed and No Apparent Distress
Respiratory: Clear to Auscultation
Cardiac: S1/S2 and Tachycardic
GI: Soft and Nontender
Musculoskeletal: No Edema
Skin: Warm
Neuro: AO x 3
Psych: Calm
[2024-09-20] MEDS: NSS 1000 IV (10:26)
--- NOTE | 2024-09-20 11:40 | CM ---
CM following re: discharge planning.
Reviewed pt's chart, met with [t and spoke to pt's sister Suzie over the phone.
Pt is a 63 year old female, admitted with primary dx of Sepsis.
Pt reports she lives with sister in a 2 story townhouse, 2 steps to enter, has no children. 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 Pt stated she has never been in a SNF.
PT and OT evaluations noted - SNF level of care recommended. Both pt and her sister are aware, expressed their agreement. Pt's sister stated that pt receives chemotherapy treatment at [facility] in [place].
A list of SNFs provided. Following SNFs preferred: [facility], [facility], [facility]. A referral to above SNFs made. pt's sister is awre of the limitation of pt's going to qa SNF while on chemotherapy treatment.
PCP: Misa Tyson
Pharmacy: [facility].
D/C plan: preferred SNF.
CM will follow to assist pt with discharge to a preferred SNF.
--- NOTE | 2024-09-20 13:02 | PTCARENOTE ---
Lidocaine patch placed with AM meds. Pt removed it within 15 min of placing. Now requesting new patch to be placed. New dose removed and placed on lower back.
--- NOTE | 2024-09-20 15:24 | W.PN.ONC2 ---
Today's Communication / Plan
-
sepsis/UTI management per primary service
transfuse prn
f/u MRI
OP management per primary oncologist
Impression
Impression
- Sepsis with UTI
- acute on chronic anemia
- chemotherapy induced thrombocytopenia
- leukocytosis
- stage IV lung adenocarcinoma with brain, liver, bone metastases
Plan
Plan
# Anemia
- hgb on presentation 6.3 g/dl with most recent prior on 09/01 of 7.7.
- suspect element of chemotherapy induced anemia however suspect likely inflammatory component. ferritin high however with malignancy, liver mets unreliable and with undetectable IS element of FERNY also may be contributing. will hold off on IV iron
however with c/f active infection. denies bleeding symptoms. stool hemoccult ordered.
- CBC daily, transfuse for hgb < 7.5 g/dl.
# Leukocytosis
- c/f UTI on UA, cultures pending. fever on presentation. No G-CSf given with chemo 09/03 due to WBC of 27 on day of tx. therefore WBC due to infection vs. malignancy
- continue abx.
- monitor fever curve, WBC trend.
# stage IV NSCLC
- follows with Dr. Rodríguez at [facility]
- on carbo/pem/keytruda, s/p C3
- no signs or symptoms to suggest ICI.
- solitary brain foci on MRI in July, not treated due to small size. ORdered repeat brain MRI with persistent confusion.
- defer to primary oncology team for ongoing management.
Subjective/Objective
Chief Complaint
no new complaints
Subjective
afebrile, no hypotension, 2L NC
using ER morphine, lidoderm patch, and prn oxycodone prn pain
Hgb 7g/dL s/p 2 unit prbc during hospitalization, last 09/20
Vital Signs:
Vital Signs
Temp Pulse Resp BP Pulse Ox
98.6 F 103 16 106/65 94
09/20/24 12:33 09/20/24 13:00 09/20/24 13:00 09/20/24 12:45 09/20/24 08:00
Lab Results:
Laboratory Data
WBC 16.4 10^3/uL (4.8-10.8) H 09/20/24 03:31
Hgb Cancelled 09/20/24 12:00
Plt Count 84 10^3/uL (130-400) L D 09/20/24 03:31
PT 19.5 Sec (11.4-14.6) H 09/18/24 15:07
INR 1.66 09/18/24 15:07
APTT 39.2 Sec (23.4-35.0) H 09/18/24 15:07
eGFR > 60.00 09/20/24 03:31
Physical Exam
General: Well Developed, No Apparent Distress and Conversant
HEENT: Negative Jaundice
Cardiology: Normal Sinus Rhythm
Pulmonary: Clear
GI: Soft; Negative Distended
Extremities: Negative Edema
Neurology: Non Focal and No Lateralizing Symptoms; Negative No Word Finding Difficulty
Psych: Calm
Review of Systems
Review of Systems
ROS notable for subjective, otherwise negative
[2024-09-20 18:11] LABS: Hematocrit 29.8 % (37.0-47.0); Hemoglobin 9.8 g/dL (12.0-16.0)
[2024-09-20] MEDS: ROXICODONE 10 MG PO (18:34)
--- NOTE | 2024-09-20 20:19 | PTCARENOTE ---
Addendum entered by Yasmeen Olson RN 09/20/24 20:26:
Report called to 3W
Original Note:
Pt received at 19:00, family present at bedside. Answers orientation questions appropriately, however confused/forgetful. SR-Sinus tach 90s-110s. RA with pulse ox 95%. +bowel sounds, poor PO intake.
Brain MRI-- TINY 3.2 mm ACUTE ISCHEMIC INFARCT. (see results for further details) Initial NIH = 6. Some difficulty following directions & confusion at baseline. R arm weak--minimal effort against gravity. B/L LE weak. Unable to score ataxia
appropriately as pt not following instructions. Possible slight aphasia d/t difficulty naming some images (cactus and hammock). Able to read words/sentences. Passed nursing swallow test.
Safe environment maintained, call costello within reach, pt repositioned.
[2024-09-21] VITALS (7 sets, daily range): BP systolic 118–138; BP diastolic 60–84; PULSE 112
[2024-09-21] MEDS: MAXIPIME 2000 MG IV ×2 (02:03→09:34)
[2024-09-21] MEDS: STERILE WATER FOR INJECTION 10 ML IV ×2 (02:03→09:35)
[2024-09-21 06:11] LABS: Hematocrit 28.4 % (37.0-47.0); Hemoglobin 9.3 g/dL (12.0-16.0); Mean Corp Hgb Conc. 32.7 g/dL (33.0-37.0); Mean Corpuscular Hgb 28.3 pg (27.0-31.0); Mean Corpuscular Volume 86.3 fL (81.0-99.0); Mean Platelet Volume 10.4 fL (7.4-10.4); Platelet Count 120 10^3/uL (130-400); Red Blood Cell Count 3.29 10^6/uL (4.20-5.40); Red Cell Dist. Width 18.5 % (11.5-14.5); White Blood Cell Count 24.3 10^3/uL (4.8-10.8)
[2024-09-21 06:29] LABS: ALT (SGPT) 12 U/L (0-35); AST (SGOT) 19 U/L (14-36); Albumin 2.3 g/dl (3.5-5.0); Alkaline Phosphatase 158 U/L (38-126); Blood Urea Nitrogen 8 mg/dl (7-17); Calcium 9.1 mg/dl (8.4-10.2); Carbon Dioxide 20 mmol/L (22-30); Chloride 101 mmol/L (98-107); Estimated Creatinine Clearance 71 ml/min; Glucose 86 mg/dl (70-99); HDL Cholesterol 31 mg/dl; LDL Cholesterol, Calculated 50 mg/dl; Potassium 3.4 mmol/L (3.5-5.1); Sodium 133 mmol/L (135-145); Total Bilirubin 1.2 mg/dl (0.2-1.3); Total Cholesterol 95 mg/dl (50-199); Total Protein 4.8 g/dl (6.3-8.2); Triglyceride 73 mg/dl (10-149); Very Low Density Lipoprotein 14 mg/dl (0-30); eGFR > 60.00
[2024-09-21] MEDS: SYMBICORT 160/4.5 MCG INHALER 2 PUFF INH ×2 (07:23→19:14)
--- NOTE | 2024-09-21 08:56 | W.PN.ONC2 ---
Today's Communication / Plan
-
f/u neuro consult for acute CVA
daily CBC
Impression
Impression
- Sepsis with UTI
- acute on chronic anemia
- chemotherapy induced thrombocytopenia
- leukocytosis
- stage IV lung adenocarcinoma with brain, liver, bone metastases. 09/20 MRI brain no intraparenchymal metastatic disease. right frontal bone met.
-3.2 mm acute ischemic infarct posterior left parietal lobe
Plan
Plan
# Anemia
- hgb on presentation 6.3 g/dl with most recent prior on 09/01 of 7.7.
- suspect element of chemotherapy induced anemia however suspect likely inflammatory component. ferritin high however with malignancy, liver mets unreliable and with undetectable IS element of FERNY also may be contributing. will hold off on IV iron
however with c/f active infection. denies bleeding symptoms. stool hemoccult ordered.
- CBC daily, transfuse for hgb < 7.5 g/dl.
# Leukocytosis
- on cefepime. fever on presentation. No G-CSf given with chemo 09/03 due to WBC of 27 on day of tx. therefore WBC due to infection vs. malignancy
- monitor fever curve, WBC trend.
# stage IV NSCLC
- follows with Dr. Rodríguez at [facility]
- on carbo/pem/keytruda, s/p C3
- no signs or symptoms to suggest ICI.
- solitary brain foci on MRI in July, not treated due to small size
- defer to primary oncology team for ongoing management.
#acute CVA f/u neuro consult
Subjective/Objective
Chief Complaint
no new complaints
Subjective
afebrile, no hypotension or hypoxia
using ER morphine, lidoderm patch, and prn oxycodone prn pain
Hgb improved to 9.3g/dL, platelets improved 120,000
3.2 mm acute ischemic white matter infarct in the posterior left parietal lobe brewer radiata, however, no MRI evidence for abnormal intraparenchymal enhancement in the brain to suggest intraparenchymal metastatic disease.
Vital Signs:
Vital Signs
Temp Pulse Resp BP Pulse Ox
97.9 F 106 16 127/75 95
09/21/24 07:41 09/21/24 07:41 09/21/24 07:41 09/21/24 07:41 09/21/24 07:41
Lab Results:
Laboratory Data
WBC 24.3 10^3/uL (4.8-10.8) H 09/21/24 05:37
Hgb 9.3 g/dL (12.0-16.0) L 09/21/24 05:37
Plt Count 120 10^3/uL (130-400) L D 09/21/24 05:37
PT 19.5 Sec (11.4-14.6) H 09/18/24 15:07
INR 1.66 09/18/24 15:07
APTT 39.2 Sec (23.4-35.0) H 09/18/24 15:07
eGFR > 60.00 09/21/24 05:37
Physical Exam
General: Well Developed, No Apparent Distress and Conversant
HEENT: Negative Jaundice
Cardiology: Normal Sinus Rhythm
Pulmonary: Clear
GI: Soft; Negative Distended
Extremities: Negative Edema
Neurology: Non Focal and No Lateralizing Symptoms; Negative No Word Finding Difficulty
Psych: Calm
Review of Systems
Review of Systems
ROS notable for subjective, otherwise negative
--- NOTE | 2024-09-21 09:07 | CON.NEURO4 ---
Addendum entered and electronically signed by Cesar Duckworth MD 09/21/24 12:00:
Studies reviewed.
I have personally examined the patient. I reviewed and agree with the AGRICULTURE RESEARCH DIRECTOR's Note.
My addenda:
Awake, alert, interactive. No acute distress.
Speech clear, perseverative.
Follows 2-step requests w/ difficulty. No tremor.
Extra-ocular movements grossly intact.
Facial movements full and symmetric. Hearing intact to normal conversational volume.
Normal UE movements: restricted RUE at shoulder, otherwise intact .
Neck: full ROM.
Chest: no dyspnea
Heart: no JVD
Ext: (-) Clubbing, (-) Cyanosis, (-) Edema
IMPRESSIONS/RECOMMENDATIONS:
Abrupt onset of change in mental status initially presumed to be secondary to urosepsis
Patient found to have right frontal osseous metastasis from known adenocarcinoma
Check EEG due to risk of seizures and the patient's continued confusion
Initiate when safe antiplatelet agent, Aspirin 81 mg daily
Restart steroids if appropriate as per oncology
Check for metabolic abnormalities producing patient's continued confusion
Check carotid ultrasound to define if the patient has a critical stenosis producing stroke
Oral candidiasis needs therapy
Continue therapy for the patient's back pain presumed to be secondary to osseous metastasis
Will continue to follow patient.
Original Note:
Documented by User: Ying Rivera NP 09/21/24 10:52
Consultation - Neurology 4
-
CONSULTING PHYSICIAN: Cesar Duckworth MD
REFERRING PHYSICIAN: Hospitalists/Venita Betancourt MD Resident
DICTATED BY: KELLY Torres
DATE/TIME OF REQUEST: 09/20/24
DATE/TIME OF CONSULTATION: 09/21/24
Reason for Consultation: Altered mental status
History of Present Illness:
This is a 63-year-old right-handed female with a PMH of lung cancer s/p R pneumonectomy with mets to the brain, liver, and bone completed last dose of carbo/pem/Keytruda on 09/03/24, migraines, HTN, CKD, and asthma who has presented to the hospital
on 09/18/24 with report of confusion, weakness, and increased urinary frequency. The patient is confused and offers little insight to her current situation; therefore, this information is primarily obtained from medical records. Urine culture is
positive for Aerococcus species and she was started on Cefepime. She has also been noted to have chemotherapy induced thrombocytopenia. She is followed by our Neurology service Dr. Mai as an outpatient for post-concussive headaches s/p hitting
her head on a glass door in 2018 in addition to RUE neuropathic discomfort. She was maintained on Emgality and Ubrelvy for headache prevention with good response, but had to discontinue these last Spring due to insurance coverage. She is using
rizatriptan and Aleve for headache relief.
She is followed as an outpatient by [facility] Dr. Espitia. She underwent MRI brain imaging in March 2024 which demonstrated a thin extra-axial enhancement along the left greater wing of the sphenoid measuring up to 3mm in thickness. It was felt
that this was a meningioma and follow-up MRI brain imaging was competed in July 2024 which additionally demonstrated a single foci in the left parietal lobe. Due to the small size of this new lesion, rad/onc held off on initiating treatment with a
plan to repeat imaging this month. Due to confusion, MRI brain w/ and w/o contrast was obtained during this admission and demonstrates a right frontal bone 1.2cm osseous metastases in addition to a tiny acute ischemic left parietal lobe brewer
radiata ischemic. CT abd/pelvis additionally demonstrates a lesion at T12, unclear if this is a known or new finding.
Patient currently reports mid-lower back discomfort that she rates an 8-9/10. She feels that her weakness is improving. She denies any headache, dizziness, vision changes, speech/swallow difficulty, numbness, chest pain, palpitations, and shortness
of breath. She denies any history of TIA or stroke in the past and she was not taking any blood-thinning medications.
Past Medical History: Lung cancer with mets to brain, liver, bone. Post-concussive migraines, RUE neuropathy, HTN, CKD, asthma, mitral prolapse, PUD, UTI, overactive bladder, lumbar radiculopathy/foraminal stenosis, DDD, vitamin D deficiency
Surgical History: Right pneumonectomy.
Family History: Mother and brother- esophageal cancer. Niece- brain tumor.
Social History: Former smoker. Rare alcohol. No illicit drug use. Lives alone. 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
Allergies: Amitriptyline.
Home Medications: See below.
Review of Symptoms:
Patient denies any fever, headache, chest pain, shortness of breath, GI or symptoms.
�Per the HPI.�All systems are reviewed negative except above.
Physical Exam:
The patient is afebrile, abdomen is nondistended, breathing is unlabored, skin is warm and dry, no edema. Tongue with slight patchy white rash.
NIH Stroke Scale:
I performed the NIH stroke scale on the patient on 09/21/24 at 0915. The patient scored 3 points on the NIH stroke scale assessment, which were assigned as follows: See below.
Neurologic Examination:
The patient is awake, alert and oriented to name and date, confused to place, time, and situation. 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 She is able to follow one-step commands and answer some
questions appropriately. There is no dysarthria, perseverates in conversation frequently. On cranial nerve assessment, pupils are 3 mm bilateral, round and reactive to light and accommodation. Visual lucero are full. Extraocular movements are
intact. Facial sensations are intact and bilaterally symmetrical, there is no facial asymmetry. Hearing is intact bilaterally to normal conversation volume. Tongue palate and uvula are midline. Sternocleidomastoid strengths are full bilaterally.
Motor strengths are 5/5 bilateral upper distally but 2/5 deltoid, unclear if this is due to shoulder pain, and 5-/5 bilateral lower extremities on medical research [place] scale. There is no drift. Deep tendon reflexes are 3+ bilateral upper and
lower extremities, +Recinos's and delayed 5-6 beats of clonus bilateral Achilles. Babinski is absent bilaterally. There was no extinction noted on double simultaneous stimulation. Coordination is intact by finger to nose bilaterally.
Lab Results: See below.
Neuro Imaging:
1. MRI brain 09/20/24: TINY 3.2 mm ACUTE ISCHEMIC INFARCT in the posterior LEFT PARIETAL LOBE BREWER RADIATA. Mild white matter leukoaraiosis in both cerebral hemispheres. Mild diffuse cerebral and cerebellar volume loss. 1.2 cm OSSEOUS METASTASIS
in the RIGHT FRONTAL BONE.
Differentials for the patient's presentation include:
1. Left parietal lobe tiny ischemic infarct, incidental finding.
2. CT abd/pelvis suggestive of a T12 lesion; patient is hyperreflexive and complaining of mid-lower back pain, concerning for spine metastases.
3. TME in the setting of UTI.
4. Right frontal bone and left parietal metastatic lesions.
5. Primary lung cancer with mets to the liver, brain, and bone.
6. Cannot entirely rule out partial seizure contributing to confusion and aphasia.
7. Oral candidiasis.
Patient has the following risk factors for their symptoms: Primary lung cancer with mets to the liver, brain, and bone, UTI, new stroke, T12 lesion
IV Tenecteplase/IAT candidacy: Not a candidate due to unclear time of onset of symptoms, outside of time window, no evidence of LVO.
Recommendations:
-Routine EEG pending.
-If T12 lesion is a new finding, would recommend follow-up cervical, thoracic, and lumbar spine MRI w/ and w/o contrast for spine mets evaluation.
-Initiate aspirin 81mg daily for stroke prevention, okay per heme/onc.
-Goal normotension.
-Carotid ultrasound pending.
-LDL goal <70. LDL is 50. Okay to hold off initiating statin therapy as LDL is significantly below gaol.
-Goal normoglycemia, hbA1c is pending.
-Checking ammonia, TSH.
-NIHSS and neurological checks per unit guidelines.
-Provide patient with a stroke education packet.
-PT/OT/ST evaluations.
-DVT prophylaxis.
Discussed patient care with: Dr. Duckworth, the patient
Vital Signs and Labs
-
Vital Signs and Labs:
Vital Signs
Temp Pulse Resp BP Pulse Ox
97.9 F 106 16 127/75 95
09/21/24 07:41 09/21/24 07:41 09/21/24 07:41 09/21/24 07:41 09/21/24 07:41
Lab Results
09/21/24 05:37
09/21/24 05:37
PT 19.5 Sec (11.4-14.6) H 09/18/24 15:07
INR 1.66 09/18/24 15:07
APTT 39.2 Sec (23.4-35.0) H 09/18/24 15:07
Sodium 133 mmol/L (135-145) L 09/21/24 05:37
Potassium 3.4 mmol/L (3.5-5.1) L 09/21/24 05:37
BUN 8 mg/dl (7-17) 09/21/24 05:37
Glucose 86 mg/dl (70-99) 09/21/24 05:37
Calcium 9.1 mg/dl (8.4-10.2) 09/21/24 05:37
LDL Cholesterol, Calc 50 mg/dl 09/21/24 05:37
Vitamin B12 > 1000 pg/ml (239-931) H 09/18/24 15:07
Medications
-
Active Medications
Generic Name Dose Route Start Last Admin
Trade Name Freq PRN Reason Stop Dose Admin
Acetaminophen 650 mg 09/18/24 19:58
Acetaminophen 325 Mg Tablet PO 10/16/24 19:57
Q4HPRN PRN
OLIVARES/mild pain/temp > 100.4 F
Acetaminophen 650 mg 09/18/24 19:58
Acetaminophen 650 Mg Rectal Suppository RECTAL 10/16/24 19:57
Q4HPRN PRN
OLIVARES/ mild pain/ temp >/= 100.4F
Albuterol 2 puff 09/18/24 19:58
Albuterol Hfa [90 Mcg/Dose] Inhaler INH
R Q4HPRN PRN
sob
Protocol
Albuterol Sulfate 2.5 mg 09/18/24 19:58
Albuterol Nebs 2.5 Mg/3 Ml Ampul INH
R QIDPRN PRN
wheezing
Protocol
Budesonide/Formoterol Fumarate 2 puff 09/19/24 08:00 09/21/24 07:23
Symbicort Inhaler 160/4.5 INH 10/17/24 07:59 2 puff
R BID DIALLO Administration
Cefepime HCl 2,000 mg 09/19/24 02:00 09/21/24 09:34
Cefepime Hcl 2,000 Mg/12.5 Ml Vial IV 2,000 mg
Q8H DIALLO Administration
Folic Acid 1 mg 09/19/24 08:00 09/21/24 09:27
Folic Acid 1 Mg Tablet PO 10/17/24 07:59 1 mg
DAILY DIALLO Administration
Heparin Sodium (Porcine) 500 unit 09/20/24 18:00 09/21/24 05:38
Heparin Flush Pf (100 Unit/Ml) 5 Ml Syringe IV 10/18/24 17:59 500 unit
PER PROTOCOL DIALLO Administration
Lactulose 20 grams 09/18/24 22:30
Lactulose Solution (20 Grams/30 Ml) 30 Ml Cup PO 10/16/24 22:29
DAILYPRN PRN
CONSTIPATION
Lidocaine 0 patch 09/19/24 08:00 09/21/24 09:34
Lidocaine 4% Topical Patch TOPICAL 10/17/24 07:59 1 patch
DAILY DIALLO Administration
Metoclopramide HCl 5 mg 09/18/24 19:58 09/21/24 09:46
Metoclopramide 5 Mg Tablet PO 10/16/24 19:57 5 mg
QID DIALLO Administration
Morphine Sulfate 30 mg 09/18/24 20:00 09/21/24 09:27
Morphine 30 Mg Extended Release Tablet PO 10/02/24 19:59 30 mg
BID DIALLO Administration
Naloxegol [Movantik] 0 mg 09/19/24 08:00
25mg Tablet: One PO 10/17/24 07:59
Tablet Po Daily DAILY DIALLO
Olanzapine 5 mg 09/18/24 19:58
Olanzapine 5 Mg Tablet PO 10/16/24 19:57
HSPRN PRN
nausea/vomiting
Oxycodone HCl 10 mg 09/18/24 19:58 09/20/24 18:34
Oxycodone 5 Mg Regular Release Tablet PO 10/02/24 19:57 10 mg
Q4HPRN PRN Administration
moderate to severe pain
Patch Removal 0 patch 09/19/24 20:00 09/20/24 20:39
Remove Lidocaine Patch REMOVE 10/17/24 19:59 Not Given
DAILY@2000 DIALLO
Pregabalin 75 mg 09/18/24 20:00 09/21/24 09:27
Pregabalin 75 Mg Capsule PO 10/16/24 19:59 75 mg
BID DIALLO Administration
Simethicone 160 mg 09/18/24 19:58
Simethicone 80 Mg Chewable Tablet PO 10/16/24 19:57
QIDPRN PRN
flatulence
Sodium Chloride 0 flush 09/21/24 08:00
Sodium Chloride 0.9% (Flush) Syringe IV 10/19/24 07:59
PER PROTOCOL DIALLO
Solifenacin 5 mg 09/19/24 08:00 09/21/24 09:27
Solifenacin Succinate (Vesicare) 5 Mg Tablet PO 10/17/24 07:59 5 mg
DAILY DIALLO Administration
Sterile Water 10 ml 09/19/24 02:00 09/21/24 09:35
Sterile Water For Injection 10 Ml Vial IV 10/17/24 01:59 10 ml
Q8H DIALLO Administration
Triamcinolone Acetonide 0 applic 09/18/24 19:58
Tramcinolone Acetonide 0.1% (Cream) 15 Gram Tube TOPICAL 10/16/24 19:57
BIDPRN PRN
rash/irritation
Home Medications
�Medication �Instructions �Recorded
spironolactone 50 mg tablet 50 mg PO BID Fluid 06/20/12
Retention/Swelling
albuterol sulfate 90 mcg/actuation 2 puff inhalation R Q4HPRN PRN sob 03/13/15
aerosol inhaler
fluticasone furoate 200 1 ea inhalation R DAILY 01/13/20
mcg-vilanterol 25 mcg/dose Lung/Breathing Issues
inhalation powder (Breo Ellipta)
albuterol sulfate 2.5 mg/3 mL 2.5 mg inhalation R QIDPRN PRN 09/18/24
(0.083 %) solution for nebulization wheezing
azelastine 137 mcg (0.1 %) nasal 1 spray intranasal BID Allergies 09/18/24
spray
denosumab 60 mg/mL subcutaneous 60 mg SC [id number] 09/18/24
syringe (Prolia)
dexamethasone 4 mg tablet 4 mg PO USEASDIRECTD 09/18/24
Anti-Inflammatory
fluticasone propionate 50 2 spray intranasal DAILY Allergies 09/18/24
mcg/actuation nasal
spray,suspension
folic acid 1 mg tablet 1 mg PO DAILY Supplement 09/18/24
galcanezumab-gnlm 120 mg/mL 120 mg SC Q28D headache/migrain 09/18/24
subcutaneous pen injector preventi
(Emgality Pen)
granisetron 3.1 mg/24 hour weekly 3.1 mg transdermal Q7D 09/18/24
transdermal patch (Sancuso) Gastrointestinal Issue
lactulose 10 gram/15 mL oral 30 ml PO DAILYPRN PRN constipation 09/18/24
solution
lidocaine 5 % topical patch 3 patch topical DAILY LOWER BACK 09/18/24
metoclopramide HCl 5 mg tablet 5 mg PO QID Gastrointestinal Issue 09/18/24
morphine 30 mg tablet,extended 30 mg PO BID Pain 09/18/24
release
naloxegol 25 mg tablet (Movantik) 25 mg PO DAILY Constipation 09/18/24
olanzapine 5 mg tablet 5 mg PO HSPRN PRN mental health 09/18/24
oxycodone 5 mg tablet 10 mg PO Q4HPRN PRN moderate to 09/18/24
severe pain
pregabalin 75 mg capsule 75 mg PO BID Pain 09/18/24
rizatriptan 10 mg tablet 10 mg PO DAILYPRN PRN migraine 09/18/24
simethicone 80 mg chewable tablet 160 mg PO QIDPRN PRN flatulence 09/18/24
solifenacin 5 mg tablet 5 mg PO DAILY Urinary Issue 09/18/24
triamcinolone acetonide 0.1 % 1 applic topical BIDPRN PRN rash 09/18/24
topical cream
ubrogepant 100 mg tablet (Ubrelvy) 100 mg PO ONCE PRN migraine 09/18/24
NIH Stroke Score
Subsequent NIH Scale
Date of Subsequent NIH Scale: 09/21/24
Time of Subsequent NIH Scale: 09:45
NIH Stroke Score
Level of Consciousness: 0 - Alert
LOC Questions: 2-Neither correct
LOC Commands: 0-Performs both correctly
Best Horizontal Gaze: 0-Normal
Visual Lucero: 0=Normal, no visual loss
Facial Palsy: 0=Normal, symmetrical
Motor - Right Arm: 0=No drift 10 seconds
Motor - Left Arm: 0=No drift 10 seconds
Motor - Right Le-No drift 5 seconds
Motor - Left Le-No drift 5 seconds
Limb Ataxia: 0-Absent
Sensation: 0-Normal
Best Language: 1-Mild aphasia
Dysarthria: 0-Normal
Extinction and Inattention: 0-No abnormality
Total Score:: 3
Modified Napoleon (mRS) Score
Modified Napoleon Scale (mRS): Moderate disability. Requires some help, able to walk unassisted.
Score: 3
Alteplase Contraindication
Inclusion and Exclusion criteria reviewed: Yes
Reasons for NON-Tx with Thrombolytics ABSOLUTE Exclusions: Greater than 4.5 hrs from onset of sxs

Documented by User: Cesar Duckworth MD 09/21/24 11:46
NIH Stroke Score
NIH Stroke Score
Total Score:: 3
Modified Napoleon (mRS) Score
Score: 3
[2024-09-21] MEDS: VESICARE 5 MG PO (09:27)
[2024-09-21] MEDS: FOLVITE 1 MG PO (09:27)
[2024-09-21] MEDS: LYRICA 75 MG PO ×2 (09:27→20:50)
[2024-09-21] MEDS: MS CONTIN (EXTENDED RELEASE) 30 MG PO ×2 (09:27→20:50)
[2024-09-21] MEDS: KCL ELIXIR 40 MEQ PO (09:27)
[2024-09-21] MEDS: LIDOCAINE 4% PATCH 1 PATCH TOPICAL (09:34)
[2024-09-21] MEDS: REGLAN 5 MG PO ×4 (09:46→23:27)
--- NOTE | 2024-09-21 09:58 | PN.CDI ---
CDI
- -
CDI:
Physician Documentation Request
Admit Date: 09/18/24 18:10
Dear Doctor,
Please review the following and provide your response in the progress notes.
Clinical Indicators:
- 09/20 PN 'Cancer induced Bone Pain chronic opioid use
- per H&P home meds morphine, oxycodone
- Documented morphine and oxycodone given
If possible, please provide further specificity as outlined below:
Opioid use with dependence
Opioid use without dependence
Other
Use of terms such as suspected, likely, concern for, or probable (associated with a specific diagnosis that is being evaluated, monitored, or treated as if it exists) are acceptable and can be coded in the inpatient setting, when documented at the
time of discharge.
Thank you,
Erick Luke RN
CDI Specialist
Please use your independent medical judgment in providing your response.
--- NOTE | 2024-09-21 10:04 | PN.CDI ---
CDI
- -
CDI:
Physician Documentation Request
Admit Date: 09/18/24 18:10
Dear Doctor,
Please review the following and provide your response in the progress notes.
Clinical Indicators:
- 09/20 40 meq IV Potassium chloride given
- 09/21 40 meq PO Potassium chloride given
Laboratory Tests
09/20/24 09/21/24
03:31 05:37
Potassium 3.2 L 3.4 L
Please provide a diagnosis for the above lab values that were monitored and treatment rendered:
Hypokalemia
Clinically insignificant abnormal lab value
Other
Use of terms such as suspected, likely, concern for, or probable (associated with a specific diagnosis that is being evaluated, monitored, or treated as if it exists) are acceptable and can be coded in the inpatient setting, when documented at the
time of discharge.
Thank you,
Erick Luke RN
CDI Specialist
Please use your independent medical judgment in providing your response.
[2024-09-21 10:19] LABS: Haptoglobin 397 mg/dL (30-200)
--- NOTE | 2024-09-21 10:22 | W.PN.HOSP.TC ---
Addendum entered and electronically signed by Amadeo Rivera MD 09/21/24 22:13:
Attending Addendum-
I saw and evaluated the patient. I reviewed the resident�s note and agree with findings and plan as documented in the resident�s note. Sub: patient with tangential and broken speech at times. seen with speech therapy present. Denies issues. Full 12
point ROS reviewed and negative except as documented Exam: Vitals reviewed in chart GEN-NAD heart RRR lungs clear NO BS right , Left CTA abd soft NT chest Left upper port in place Neuro AAOx2 dysphasia
# Metabolic encephalopathy/septic shock secondary to urinary tract infection
- improved but still not back to baseline
- off Levophed
- Blood culture-NGTD x 48,
- Ur Cx-Aerococcus
- DC cefepime start amoxicillin
- Tylenol as needed for fever
- Continue to monitor
# Dysphagia
- speech eval
- mech alter diet
# Thrush
- start nystatin s/s
# Leukocytosis
- repeat CBC in am
# Acute CVA
- MRI 09/20-
1. TINY 3.2 mm ACUTE ISCHEMIC INFARCT in the posterior LEFT PARIETAL LOBE JAQUEZ RADIATA.
2. 1.2 cm OSSEOUS METASTASIS in the RIGHT FRONTAL BONE
- neuro c/s appreciated
- start asa per hemeonc
- LDL 50 t/c statin
- CD- left < 50%, right 50-69%
# Seizure
- eeg reviewed
- start keppra per neuro
# Generalized weakness likely from UTI/anemia
-PT/OT consulted
- likely will need SNF vs acute rehab
# Hypotension
- was on Levophed was weaned off
- hold spironolactone
- cont tele
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
- cont morphine 30mg PO BID and oxy 10 prn - home dose
- monitor MS closely
# Hypokalemia-
- replete
- repeat BMP in am
# Elevated TSH
- sub clinical hypot3
- t/c start low dose levo
- repeat TSH in 4-6 weeks
# Anemia of chronic disease
-Hemoglobin 7.0-TX 1 unit of blood repeat hb 2 hours post
-Monitor hemoglobin in AM
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
- Follows onc at [facility]
- last IV chemo September 03, next due in 3 weeks
- Lidocaine patch, morphine, Reglan, olanzapine, oxycodone, Lyrica continued
- apprecaite onc input
- hold decadron
# Chronic hyponatremia likely from metastatic disease
-mild low
-Continue to monitor
- repeat BMP sydnie
# Tachycardia likely from anemia/UTI
-improved
# History of asthma
-Patient not in acute exacerbation
- nebs from home continued
# Overactive bladder
-Solifenacin continued
# Essential hypertension
-spironolactone held
# DVT prophylaxis
-SCD
Dispo Possible new SNF vs acute rehab on DC
Time spent coordinating care, review of plan of care with resident, personally reviewed records in EMR, med rec, consults, notes, labs, radiology, d/w nursing neuro � 55 mins
Original Note:
Today's Communication/Plan
-
Switch to amoxicillin 500 TID PO x 4 days with aerococcus (+) urine culture
Start levatiracetam 1000mg Q12
Start asa 81
Nystatin suspension
Re-assess mental status after anti-seizure meds and antibiotics
Assessment / Plan
Assessment / Plan
# Metabolic encephalopathy 2/2 septic shock 2/2 likely urinary tract infection
-Sepsis with WBC yesterday 16.4, today 24.3
-Urine culture revealed aerococcus species
-Pharmacy recommended amoxicillin 500mg PO TID x4 days (after 3 days of cefepime total 7 days of antibiotics)
-d/c cefepime and switch to PO amox
-telemetry as BP stable but with tachy
-Tylenol as needed for fever
# Generalized weakness likely from UTI/anemia
-PT/OT consulted
-Recommended SNF rehab when discharge
#Hypotension
-resolved
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
-Opioid use with dependence
- taking morphine 30mg PO BID and oxy 10 prn at home
- Complains of middle back pain today
-Known T12 metastasis
-Lidocaine patch with no change in oxy for risk of increased confusion per neuro
# Anemia of chronic disease
-Hemoglobin 7.0 yesterday given 1 unit blood
-Hemoccult stool (-)
-Repeat H&H after transfusion 9.8. today Am 9.3
-Heme-onc believes chemotherapy induced anemia with an inflammatory component
#thrombocytopenia
-Monitor
#acute CVA
- MRI 09/20-
1. TINY 3.2 mm ACUTE ISCHEMIC INFARCT in the posterior LEFT PARIETAL LOBE JAQUEZ RADIATA.
2. 1.2 cm OSSEOUS METASTASIS in the RIGHT FRONTAL BONE
-EEG abnormal although not clearly epileptiform
-Starting levetiracetam 100mg Q12 per neuro
-ASA 81 per neuro. Hemeonc agreed likely to be safe as they don't believe anemia is due to bleed
- carotid US <70% stenosis bilaterally no intervention at this time
-Check ammonia level
-Statin not needed as LDL 50 at goal (<70)
-Stroke order set
# [facility] Metastatic cancer to bone and brain
-Follows onc at [place]
-Her last IV chemo was September 03, next due in 3 weeks oncology
-Lidocaine patch, morphine, Reglan, olanzapine, oxycodone, Lyrica continued
#Oral candidiasis
-White patchy lesions on tongue
-Nystatin suspension
# Chronic hyponatremia likely from metastatic disease
-Sodium 133
-Continue to monitor
#Hypokalemia
-Today 3.4
-Repleat as needed
# Tachycardia likely from anemia/UTI
-EKG with sinus tachycardia
-monitor on tele
# History of asthma
- nebs from home as needed
# Overactive bladder
-Solifenacin continue
# Essential hypertension
-spironolactone held until BP stabilizes
# DVT prophylaxis
-SCD
transfer to tele
# CODE STATUS-full code
Anticipated Discharge: > 48 hours
Subjective/Interval History
-
Date of Service: September 21, 2024
Objective Data
-
Labs:
Laboratory Results
09/21/24
05:37
WBC 24.3 H
Hgb 9.3 L
Hct 28.4 L
Plt Count 120 L D
Sodium 133 L
Potassium 3.4 L
Chloride 101
Carbon Dioxide 20 L
BUN 8
Creatinine 0.5 L
Glucose 86
Calcium 9.1
Total Bilirubin 1.2
AST 19
ALT 12
Alkaline Phosphatase 158 H
Vital Signs:
Vital Signs
Temp Pulse Resp BP Pulse Ox
97.9 F 106 16 127/75 95
09/21/24 07:41 09/21/24 07:41 09/21/24 07:41 09/21/24 07:41 09/21/24 07:41
I&O
09/20/24 09/21/24 09/22/24
06:59 06:59 06:59
Intake Total 2641.6 / 2789.1 1362.5 / 1362.5
Output Total 1550 / 1550 650 / 650
Balance 1091.6 / 1239.1 712.5 / 712.5
Review of Systems
-
History Source: Patient
Constitutional: Reports Fatigue
Respiratory: Reports No Symptoms
Cardiac: Reports No Symptoms
Abdomen/GI: Reports No Symptoms
Genitourinary: Reports No Symptoms
Neuro: Reports Weakness
Physical Exam
-
General: No Apparent Distress
Respiratory: Clear to Auscultation
Cardiac: Tachycardic
GI: Soft and Nontender
Musculoskeletal: No Edema
Neuro: Awake, Alert and Oriented
Psych: Calm
--- NOTE | 2024-09-21 11:38 | CM ---
Received call from Erica at [facility] confirming that she can take patient back. Will review PT notes and discuss recommendations with patient.
Plan: Case management will continue to follow and assist with discharge planning. Home with [facility].
[2024-09-21 12:06] LABS: TSH Reflex To Free T4 8.26 uIU/ml (0.47-4.68)
[2024-09-21 12:35] LABS: Free T4 1.35 ng/dl (0.78-2.19)
--- NOTE | 2024-09-21 13:37 | PTOTSP ---
ST Acute Care Evaluation
Pt currently presents with mild oral dysphagia characterized by prolonged mastication and bolus formation, reduced oral awareness, and oral residue post-swallow that requires prompted liquid washes to clear.
Recommendations:
- DOWNGRADE diet to SOFT BITE SIZED SOLIDS and continue with THIN LIQUIDS.
- Meds whole in puree.
- Aspiration precautions: Pt must be fully awake, alert, and upright for PO intake; pt will need encouragement to eat/drink; encourage pt to alternate solids and liquids.
- GUIDE DOMESTIC TOUR to f/u re: diet tolerance and to determine whether pt would benefit from an instrumental swallow study.
- GUIDE DOMESTIC TOUR to f/u to complete speech, language, and cognitive evaluation as able.
--- NOTE | 2024-09-21 13:48 | EEG.RPT ---
Addendum entered and electronically signed by Cesar Duckworth MD 09/21/24 13:55:
Original Note:
Electroencephalogram Report
Recording
Date of EE09/21/24
Type of EEG: Routine
Length of EEG recordin minutes
Done with Video Recording: Yes
Patient Status: Inpatient
Recording Conditions: Awake and Drowsy
Hyperventilation Performed: No
Photic Stimulation Performed: Yes
Report
LESS THAN 1 HOUR REPORT
LESS THAN 1 HOUR EEG INTERPRETATION:
Moderately to severely abnormal study for age based on bursts of generalized and generalized slowing demonstrated bihemispherically equally.
CLINICAL CORRELATION:
This study was suggestive of a generalized cortical disruption which was non-epileptiform.
Clinical correlation is advised.
METHODS:
A 21 channel digitized electroencephalogram (EEG) was performed at the bedside. The 10/20 international system of electrode placement was used with ECG and lateral/vertical eye movements recorded. The Digital Perception quantitative evaluation system was
utilized.
ELECTROENCEPHALOGRAPHER IMPRESSION(S):
Quality of study
Fair, limited by muscle artifact at times
Background
Medium amplitude
Fair anterior-posterior voltage gradient differentiation
Theta maximal background demonstrated, typically delta
Sleep
Drowsiness present
Hyperventilation
Not performed
Photic Stimulation
Failed to activate the record
ECG
Normal rhythm
Abnormal Activity
Intermittent anteriorly predominant rhythmic and rhythmic delta activity (2.5/second) which was medium amplitude lasting up to one second
[2024-09-21] MEDS: ASPIR LOW (ENTERIC COATED) 81 MG PO (14:53)
[2024-09-21 15:04] LABS: Ammonia < 9 umol/L (9-30)
--- NOTE | 2024-09-21 15:54 | PTOTSP ---
Acute Care Evaluation
Baseline Information:
*Please note that this is the information obtained from the pt, who is deemed to NOT be a reliable historian at this time.
*Would highly recommend reaching out to pt's sister, Suzie, for corroborating information.
- Pt lives in a home with her sister Suzie.
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
- Pt has no children and was Independent with all ADLs prior to arrival.
- Pt was driving prior to arrival (sister drives too).
- Pt wears glasses for far distance sight. Pt does not wear hearing aids but she indicated that she 'probably should.'
- In terms of grocery shopping, cooking, cleaning, and finances - pt said these are all shared tasks with her sister, but that her sister has been doing more lately because of the pt's cancer.
- In terms of medication management, pt is Independent with her management of her medications. Pt denies having a pill container and admits she has forgotten to take her medications at least twice over the past month.
Clinical Observations:
- Pt's verbal responses to questions were often halted with visible word-finding difficulties at times; pt's responses to questions also varied from moment to moment (the same question asked multiple times would receive a variety of responses).
- Pt was inconsistently aware of her surroundings - at one point she thought her roommate was Suzie, then she thought I was Suzie. Additionally, she was adamant at one point that she was in her 30s and the reason she was in a gown and in bed was
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 At another point, pt confirmed she was retired and that she retired at age 62 (last year).
- When pt recalled stories, pt's verbalizations were often difficult to follow due to false starts and self-corrections, vague language, and lack of expansion.
- Pt exhibited occurrences of mild perseveration on previous task items and needs several prompts to help her move on from one task to another.
- Pt's overall insight to her level of deficits and her current condition are very POOR. At the end of the session, pt was adamant that she was going to get dressed and leave - RN made aware.
- Pt's responses to yes/no questions was often unreliable - pt often changed her responses. Further probing was completed, and pt responded to basic yes/no questions with 13/17 correct (76% accuracy).
- Pt's speech was occasionally distorted with slightly reduced articulatory precision with production of consonant sounds; generally speaking, she is fairly intelligible.
Findings:
Pt currently presents with clinical symptoms of mild dysarthria, moderate receptive language deficit, moderate expressive language deficit, and moderately-severe cognitive linguistic deficit (MOCA=11/30). Pt's symptoms are likely multi-factorial in
origin including but not limited to acute encephalopathy 2/2 septic shock from UTI, acute L parietal CVA, and known mets to the brain in the R frontal lobe.
Recommendations:
- HIGHLY recommend obtaining corroborating information from pt's sister, Suzie, regarding her baseline function (especially in terms of cognitive communication and participation in ADLs).
- [facility] will monitor/tx speech, language, and cognitive linguistic dysfunction while admitted, possibly re-assessing in a week or two once pt's acute metabolic encephalopathy has resolved.
[2024-09-21] MEDS: AMOXIL 500 MG PO ×2 (17:14→23:27)
[2024-09-21] MEDS: MYCOSTATIN ORAL SUSPENSION 5 ML PO ×2 (17:14→23:27)
[2024-09-21] MEDS: KEPPRA 1000 MG PO (20:50)
[2024-09-22] MEDS: ROXICODONE 10 MG PO (00:40)
[2024-09-22 03:31] VITALS: BP 131/59
--- NOTE | 2024-09-22 05:24 | W.PN.UPDATE ---
Update Note
Progress Note Update
RN notified PURCHASING OFFICER, patient hard to communicating, is restless and is moaning, nonverbal pain score 5/10. Per RN patient has been spitting her medications. Advised to give Lidocaine patch early and will small dose of Dilaudid 0.25mg IVx1, stable VS at
present, voiding without difficulty.
[2024-09-22 05:26] LABS: ALT (SGPT) 12 U/L (0-35); AST (SGOT) 17 U/L (14-36); Albumin 2.5 g/dl (3.5-5.0); Alkaline Phosphatase 176 U/L (38-126); Blood Urea Nitrogen 7 mg/dl (7-17); Calcium 9.9 mg/dl (8.4-10.2); Carbon Dioxide 25 mmol/L (22-30); Chloride 98 mmol/L (98-107); Estimated Creatinine Clearance 71 ml/min; Glucose 93 mg/dl (70-99); Potassium 3.9 mmol/L (3.5-5.1); Sodium 133 mmol/L (135-145); Total Protein 4.9 g/dl (6.3-8.2); eGFR > 60.00
[2024-09-22 05:32] LABS: Hematocrit 29.6 % (37.0-47.0); Hemoglobin 9.8 g/dL (12.0-16.0); Mean Corp Hgb Conc. 33.1 g/dL (33.0-37.0); Mean Corpuscular Hgb 28.7 pg (27.0-31.0); Mean Corpuscular Volume 86.8 fL (81.0-99.0); Mean Platelet Volume 10.1 fL (7.4-10.4); Platelet Count 146 10^3/uL (130-400); Red Blood Cell Count 3.41 10^6/uL (4.20-5.40); Red Cell Dist. Width 18.8 % (11.5-14.5); White Blood Cell Count 28.1 10^3/uL (4.8-10.8)
[2024-09-22] MEDS: LIDOCAINE 4% PATCH 1 PATCH TOPICAL (05:50)
[2024-09-22] MEDS: DILAUDID 0.25 MG IV (05:51)
[2024-09-22 07:12] VITALS: BP 102/57
[2024-09-22] MEDS: SYMBICORT 160/4.5 MCG INHALER 2 PUFF INH ×2 (07:51→19:18)
[2024-09-22] MEDS: KEPPRA 1000 MG PO (09:40)
[2024-09-22] MEDS: AMOXIL PO (09:40)
[2024-09-22] MEDS: VESICARE 5 MG PO (09:40)
[2024-09-22] MEDS: FOLVITE 1 MG PO (09:40)
[2024-09-22] MEDS: MYCOSTATIN ORAL SUSPENSION 5 ML PO ×4 (09:40→21:23)
[2024-09-22] MEDS: MS CONTIN (EXTENDED RELEASE) 30 MG PO (09:41)
[2024-09-22] MEDS: LYRICA 75 MG PO ×2 (09:43→21:25)
[2024-09-22] MEDS: VANCOCIN 275 MG IV (09:44)
[2024-09-22] MEDS: ASPIR LOW (ENTERIC COATED) 81 MG PO (09:44)
--- NOTE | 2024-09-22 09:48 | W.PN.HOSP.TC ---
Addendum entered and electronically signed by Amadeo Rivera MD 09/22/24 23:21:
Attending Addendum-
I saw and evaluated the patient. I reviewed the resident�s note and agree with findings and plan as documented in the resident�s note. Sub: patient with tangential and repetitive speech. doesn't appear to be concerned. CIMS overnight. thought
secondary to pain and given Dilaudid. Currently patient has no complaints. Full 12 point ROS reviewed and negative except as documented Exam: Vitals reviewed in chart GEN-NAD heart RRR lungs clear NO BS right , Left CTA abd soft NT chest lump presnt
Left upper port in place Neuro AAOx2 dysarthria pupils dilated and minimally reactive
# Septic shock secondary to urinary tract infection
- off Levophed
- Blood culture-NGTD x 48,
- Ur Cx-Aerococcus
- DC cefepime DC amoxicillin start Vanco day 1
- Tylenol as needed for fever
- Continue to monitor
- c/s ID
# CIMS/Acute Delirium
- STAT CT checked- no acute changes
- restart dexamethasone due to h/o brain mets
- multifactorial
- check MRI spine then MRI brain r/u mets/LM carcinomatosis
- eventual LP
- decrease pain meds
- recheck urine
- decrease keppra
- repeat labs in am
# Dysphagia
- speech eval
- mech alter diet
# Thrush
- cont nystatin s/s
# Leukocytosis
- worsening
- unclear etiology
- repeat CBC in am
# Acute CVA
- MRI 09/20-
1. TINY 3.2 mm ACUTE ISCHEMIC INFARCT in the posterior LEFT PARIETAL LOBE JAQUEZ RADIATA.
2. 1.2 cm OSSEOUS METASTASIS in the RIGHT FRONTAL BONE
- neuro c/s appreciated
- start asa per hemeonc
- LDL 50 t/c statin
- CD- left < 50%, right 50-69%
# Seizure
- eeg reviewed
- keppra per neuro
- continuous EEG
# Hypotension
- was on Levophed-weaned off
- hold spironolactone
- cont tele
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
- decrease - morphine 30mg PO BID and oxy 10 prn - home dose
- monitor MS closely
# Hypokalemia-
- resolved
- repeat BMP in am
# Elevated TSH
- sub clinical hypot3
- t/c start low dose levotyroxine as OP
- repeat TSH in 4-6 weeks
# Anemia of chronic disease
-s/p tx 1 unit of blood
-CBC in am
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
- Follows onc at [facility]
- last IV chemo September 03, next due in 3 weeks
- Lidocaine patch, morphine, Reglan, olanzapine, oxycodone, Lyrica continued
- appreciate onc input
- restart decadron
- obtain records from [facility]
# Chronic hyponatremia likely from metastatic disease
- mild low
- Continue to monitor
- repeat BMP in am
# Tachycardia likely from anemia/UTI
-improved
# History of asthma
-Patient not in acute exacerbation
- nebs from home continued
# Overactive bladder
-Solifenacin continued
# Essential hypertension
-spironolactone held
# DVT prophylaxis
-SCD
Dispo Possible SNF vs acute rehab on DC
CODE- Full
Time spent coordinating care, review of plan of care with resident, personally reviewed records in EMR, med rec, consults, notes, labs, radiology, d/w nursing neuro ID � 65 mins
Original Note:
Today's Communication/Plan
-
Switch to vanco per ID
Decrease morphine dose
Decrease keppra dose
Start dexa 4 qd
Spine and brain MRI pending
Neuro and ID following
Assessment / Plan
Assessment / Plan
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 Aerococcus positive. ID on board with vancomycin. Increased confusion. Spoke to
care nurse at [facility] today. Patient previously stage IIIb however was due for PET scan for restaging this Friday. Now likely stage IV. Dinorah Marmolejo care nurse # [phone]. Spoke to patient's POA Sister about reevaluation of full code
status. She will discuss with patients niece who also has POA.
# Metabolic encephalopathy 2/2 septic shock 2/2 likely urinary tract infection
-Sepsis with WBC increasing
-Off levophed
-Urine cx aerococcus species
-WBC increased to 28 on Amox
-Switching to vanco per ID
-Appreciate ID
-telemetry as BP stable but with tachy
-Tylenol as needed for fever
# Generalized weakness/confusion/change in speech
UTI/anemia vs metastatis vs seizure vs stroke vs med side effect (keppra, cefepime?)
-Increased confusion and poor pupillary constriction
-Urgent non-contrast CT no acute findings
-decrease keppra to 750 BID per neuro
-Full spine and brain MRI w/ and w/o contrast for mets eval pending
-Consider LP/continuous EEG if mental status does not improve per neuro
-Decrease morphine dose to 15 BID contributing to confusion?
-Repeat UA, 1 blood culture, chest x-ray, B12, folate
-Dexa 4mg qd for suspected intracranial edema 2/2 brain mets
-ID on board
-PT/OT
-Recommended SNF rehab when discharge
#Hypotension
-resolved
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
-Opioid use with dependence
- taking morphine 30mg PO BID and oxy 10 prn at home
-Decreased to morphine 15 BID and oxy 10 prn to evaluate change in mental status
-Lidocaine patch for back pain with no change in oxy for risk of increased confusion per neuro
# Anemia of chronic disease
-Has required 2 units of blood
-Hemoccult stool (-)
-Currently stable at 9.8
-Heme-onc believes chemotherapy induced anemia with an inflammatory component
#thrombocytopenia
-Monitor
#acute CVA
- MRI 09/20-
1. TINY 3.2 mm ACUTE ISCHEMIC INFARCT in the posterior LEFT PARIETAL LOBE JAQUEZ RADIATA.
2. 1.2 cm OSSEOUS METASTASIS in the RIGHT FRONTAL BONE
-EEG abnormal although not clearly epileptiform
-Starting levetiracetam 100mg Q12 per neuro
-ASA 81 per neuro and hemeonc
- carotid US <70% stenosis bilaterally no intervention at this time
-Ammonia level <9
-Statin not needed as LDL 50 at goal (<70)
-Stroke order set
# [facility] Metastatic cancer to bone and brain
-Follows onc at [facility]
-Her last IV chemo was September 03, next due in 3 weeks oncology
-Due to PET for re-staging 09/24
-Lidocaine patch, morphine, Reglan, olanzapine, oxycodone, Lyrica continued
#Oral candidiasis
-White patchy lesions on tongue
-Nystatin suspension
# Chronic hyponatremia likely from metastatic disease
-Sodium 133
-daily bmp
#Hypokalemia
-resolved
-replace as needed
# Tachycardia likely from anemia/UTI
-EKG with sinus tachycardia
-monitor on tele
# History of asthma
- nebs from home as needed
# Overactive bladder/urinary retention
-Solifenacin continue
-straight cath protocol for retention
# Essential hypertension
-spironolactone held until BP stabilizes
# DVT prophylaxis
-SCD
transfer to tele
# CODE STATUS-full code
Anticipated Discharge: > 48 hours
Subjective/Interval History
-
Date of Service: September 22, 2024
Objective Data
-
Labs:
Laboratory Results
09/22/24
04:45
WBC 28.1 H
Hgb 9.8 L
Hct 29.6 L
Plt Count 146 D
Sodium 133 L
Potassium 3.9
Chloride 98
Carbon Dioxide 25
BUN 7
Creatinine 0.5 L
Glucose 93
Calcium 9.9
Total Bilirubin 1.0
AST 17
ALT 12
Alkaline Phosphatase 176 H
Vital Signs:
Vital Signs
Temp Pulse Resp BP Pulse Ox
97.8 F 110 16 102/57 93
09/22/24 07:12 09/22/24 07:53 09/22/24 07:53 09/22/24 07:12 09/22/24 07:53
I&O
09/21/24 09/22/24 09/23/24
06:59 06:59 06:59
Intake Total 1362.5 / 1362.5 720 / 720
Output Total 650 / 650
Balance 712.5 / 712.5 720 / 720
Review of Systems
-
History Source: Patient
Constitutional: Reports No Symptoms
Respiratory: Reports No Symptoms
Cardiac: Reports No Symptoms
Abdomen/GI: Reports No Symptoms
Genitourinary: Reports No Symptoms
Neuro: Reports No Symptoms
Physical Exam
-
General: No Apparent Distress
HEENT: Thrush and Other (Dilated pupils bilaterally. No convergence. Minimal pupillary reactivity to light, right sided tongue deviation)
Respiratory: Clear to Auscultation
Cardiac: Tachycardic
GI: Soft and Nontender
Musculoskeletal: No Edema
Neuro: Awake and Other (Right sided tongue deviation, decreased pupillary reactivity to light); Negative Alert or Oriented
Psych: Calm
[2024-09-22] MEDS: REGLAN 5 MG PO ×4 (10:06→21:23)
--- NOTE | 2024-09-22 10:11 | W.PN.NEURO.1 ---
Today's Communication / Plan
-
-lower Keppra to 750mg BID given concern for worsened confusion possibly being a side effect of this medication
-check cervical, thoracic, and lumbar spine MRI w/ and w/o contrast for spine mets evaluation
-consider LP/continuous EEG if mental status does not improve; will focus on getting MRIs first
-need full records from [facility] oncology
Neuro Assessment/Plan
Assessment
63 year-old female who has followed with me as an outpatient since 2019 for migraine admitted 09/18 with generalized weakness and confusion for several days prior felt to be due to encephalopathy with urosepsis.
Differentials for the patient's presentation include:
1. Left parietal lobe tiny ischemic infarct, incidental finding on MRI brain
2. CT abd/pelvis suggestive of a T12 lesion; patient is hyperreflexive and complaining of mid-lower back pain, concerning for spine metastases.
3. TME in the setting of UTI.
4. Right frontal bone and left parietal metastatic lesions.
5. Primary lung cancer with mets to the liver, brain, and bone.
6. EEG showed some nonepileptic abnormalities, no seizures captured, started on Keppra 1000mg BID yesterday in case she has been having seizures; there is concern that she may be more sedated since starting Keppra so we will lower her dose
slightly.
7. Oral candidiasis.
Patient has the following risk factors for their symptoms: Primary lung cancer with mets to the liver, brain, and bone, UTI, new stroke, T12 lesion
IV Tenecteplase/IAT candidacy: Not a candidate due to unclear time of onset of symptoms, outside of time window, no evidence of LVO.
Results:
Stat HCT done this AM after worsening encephalopathy:
There are no focal or acute intracranial abnormalities.
There is mild cortical and cerebellar atrophy.
MRI brain 09/20/24: TINY 3.2 mm ACUTE ISCHEMIC INFARCT in the posterior LEFT PARIETAL LOBE JAQUEZ RADIATA. Mild white matter leukoaraiosis in both cerebral hemispheres. Mild diffuse cerebral and cerebellar volume loss. 1.2 cm OSSEOUS METASTASIS in
the RIGHT FRONTAL BONE.
EEG, 09/21:
Moderately to severely abnormal study for age based on bursts of generalized and generalized slowing demonstrated bihemispherically equally. Intermittent anteriorly predominant rhythmic and rhythmic delta activity (2.5/second) which was medium
amplitude lasting up to one second
CLINICAL CORRELATION:
This study was suggestive of a generalized cortical disruption which was non-epileptiform.
CUS, 09/21:
Mixed atherosclerotic plaque involving the right carotid bulb and ICA with ICA/CCA ratio of 2.15 consistent with 50-69% stenosis. No velocity measurements greater than 180 cm/s are seen at any ICA level.
Minimal atherosclerotic plaque involving the left carotid bulb and ICA with velocity measurements consistent with less than 50% stenosis.
Antegrade flow in the bilateral vertebral arteries.
Plan
Recommendations:
-lower Keppra to 750mg BID given concern for worsened confusion possibly being a side effect of this medication
-check cervical, thoracic, and lumbar spine MRI w/ and w/o contrast for spine mets evaluation
-consider LP/continuous EEG if mental status does not improve; will focus on getting MRIs first
-need full records from [facility] oncology; reviewed last OP note from pallative care/oncology at [facility], 09/21/24
-Continue aspirin 81mg daily for stroke prevention, okay per heme/onc.
-Goal normotension.
-LDL goal <70. LDL is 50. Okay to hold off initiating statin therapy as LDL is significantly below gaol.
-Goal normoglycemia, hbA1c is pending.
-LFTs normal, alk phos 176, ammonia level negative, TSH elevated at 8.26
-NIHSS and neurological checks per unit guidelines.
-Provide patient with a stroke education packet.
-PT/OT/ST evaluations.
-DVT prophylaxis.
Subjective/Objective
Subjective Data
Date of Service: September 22, 2024
more confused this AM, had stat HCT which showed no development of new findings to explain her worsened mental status
no overt clinical seizure activity
Objective Data
Vital Signs
Temp Pulse Resp BP Pulse Ox
97.8 F 110 16 102/57 93
09/22/24 07:12 09/22/24 07:53 09/22/24 07:53 09/22/24 07:12 09/22/24 07:53
Lab Results
09/22/24 04:45
09/22/24 04:45
PT 19.5 Sec (11.4-14.6) H 09/18/24 15:07
INR 1.66 09/18/24 15:07
APTT 39.2 Sec (23.4-35.0) H 09/18/24 15:07
Sodium 133 mmol/L (135-145) L 09/22/24 04:45
Potassium 3.9 mmol/L (3.5-5.1) 09/22/24 04:45
BUN 7 mg/dl (7-17) 09/22/24 04:45
Glucose 93 mg/dl (70-99) 09/22/24 04:45
Calcium 9.9 mg/dl (8.4-10.2) 09/22/24 04:45
LDL Cholesterol, Calc 50 mg/dl 09/21/24 05:37
Vitamin B12 > 1000 pg/ml (239-931) H 09/18/24 15:07
Patient Allergies
amitriptyline [From Elavil] Allergy (Verified 08/18/21 12:01)
Rash
Physical Exam
Extended Neurological Exam
Attention Span & Concentration: Lethargic
Memory: Other (recognized me, knew location, thought month was May, perseverated on location; follows some basic commands)
Speech: Dysarthric
Cranial Nerve II: Left Eye: Pupillary Reactivity Unremarkable and Pupillary Size Unremarkable
Cranial Nerve II: Right Eye: Pupillary Reactivity Unremarkable and Pupillary Size Unremarkable
Cranial Nerves III, IV, : Extraocular Movement: Extraocular Movement Full in all Directions
Cranial Nerve VII: Facial Symmetry: Normal Facial Symmetry
Cranial Nerve VIII: Hearing: Unremarkable Hearing to Normal Conversational Volume
Cranial Nerves IX, X: Palate Movement: Palate Elevation Symmetric
Cranial Nerve XII: Tongue Protusion: Midline
Muscle Strength, Overall: Other (+RUE drift, 4/5; otherwise at least 4+ diffusely; has a h/o R shoulder pain--unclear if related)
Deep Tendon Reflexes: 3+ (diffusely)
Cold Sensation: Unremarkable
Touch Sensation: Unremarkable
Coordination: Unable to Assess (did not follow this command)
Babinski Sign: Other (mute bilaterally)
--- NOTE | 2024-09-22 10:48 | PTCARENOTE ---
late note d/t pt care:
at approx 0945 pt's bed alarm was going off and by the time Crissy RN got to the room pt was already kneeling on the floor in front of chair. Pt did not hit her head, or fall completely to the ground but was found in a 'praying' position in front of
chair. Pt very confused, not redirectable. Resident emma villarreal was notified. Pt comfortable, back in bed, bed alarm on for safety. VSS.
[2024-09-22 10:56] LABS: Glycohemoglobin (HgbA1c) 5.3 % (4.0-5.6)
[2024-09-22 11:04] VITALS: BP 111/61
--- NOTE | 2024-09-22 14:01 | CON.ID ---
Consultation
-
Date/Time Consultation Requested: 09/22/24 8:51
Date/Time Consultation Performed: 09/22/24 14:03
Requesting Provider: Dr Disla
Performing Provider: Dr Ward
Reason for Consultation: Possible UTI
Chief Complaint / Past History
Chief Complaint
weakness and confusion
History of Present Illness
Ms Candelaria is a 63 year old female with history of lung cancer with mets to the brain and CKD admitted for weakness, word finding difficulties and confusion. She was too weak to gett out of bed and lowered herself to the floor. The night before
admission she was incontinent of urine and described frequency. Had a fever on the day of arrival to 101.0. Denied: headache, dizziness, syncope.
Her history is notaale for localized lung cancer s/p pneumonectomy unfortunately with recurrence tobrain, liver and bones. She is currently on palliative chemoimmunotherapy since july with carbo/pem/keytruda - last dose 09/03. GCSF recently hld
when WBC 27 on day of treatment. She is due for repeat MRI brain this month. Of note she is on morphine 30 mg PO BID and oxy 10 PRN at home.
Since arrival here she has been afebrile, bp overall stable, wbc initially 13.7 now 28.1, L shift was noted on arrival - eosinophils were not present at that time, differential has not been redone since then; plt 120, cr 0.5, na 132 on arrival now
133, t bili 1.0, ast 17, alt 12, alk phos 176, ua 21-25 wbc/hpf and many bacteria, an RPR is ordered, 09/20 brain MRI: found to have tiny acute ischemic infarct in the L parietal lobe and osseous mets in the right frontal bone. Blood cultures no
growth to dateShe was initially started on cefepime which she received from 09/18-09/21 when she was switched to amoxicillin.
Past History
Additional Past Medical History:
CKD
GERD
Overactive bladder
Asthma
Lung cancer
Hypertension
Mitral prolapse
PUD
UTI
Additional Past Surgical History:
Right pneumonectomy
port
Allergy History:
amitriptyline [From Elavil] Allergy (Verified 08/18/21 12:01)
Rash
Medications Reviewed: Yes
Social History
Tobacco: Former Smoker
Alcohol: None
Drug: None
Family History
Family History: Not Pertinent
Review of Systems
Review of Systems
unable to obtain due to the condition of the patient
Vital Signs
Temp Pulse Resp BP Pulse Ox
97.6 F 93 16 111/61 97
09/22/24 11:04 09/22/24 11:04 09/22/24 11:04 09/22/24 11:04 09/22/24 11:04
Physical Exam
Physical Exam
Constitutional: No Acute Distress and Chronically Ill
Cardiovascular: Regular Rate and S1/S2; Negative Murmur or Rub
Pulmonary: Clear and Symmetric; Negative Wheezes, Rales or Rhonchi
Gastrointestinal: Soft, Non Tender, Non Distended and Normal Bowel Sounds
Skin: Warm and Dry; Negative Rash or Jaundice
Lab / Diagnostic Study Results
09/22/24 04:45
09/22/24 04:45
Abs Immat Gran (auto) 0.2 10^3/uL (0-0.05) H 09/18/24 15:07
Absolute Neuts (auto) 12.0 10^3/uL (1.4-6.5) H 09/18/24 15:07
Absolute Lymphs (auto) 0.4 10^3/uL (1.2-3.4) L 09/18/24 15:07
Absolute Monos (auto) 1.1 10^3/uL (0.1-0.6) H 09/18/24 15:07
Absolute Basos (auto) 0.0 10^3/uL (0-0.2) 09/18/24 15:07
Immature Gran % 1.3 % (0-0.5) H 09/18/24 15:07
Neutrophils % 87.4 % (42.2-75.2) H 09/18/24 15:07
Lymphocytes % 2.9 % (20.5-51.1) L 09/18/24 15:07
Monocytes % 8.2 % (1.7-9.3) 09/18/24 15:07
Eosinophils % 0.0 % (0-6) 09/18/24 15:07
Basophils % 0.2 % (0-2) 09/18/24 15:07
PT 19.5 Sec (11.4-14.6) H 09/18/24 15:07
INR 1.66 09/18/24 15:07
Lactic Acid 0.7 mmol/L (0.7-2.0) 09/18/24 18:05
Urine WBC 21-25 /HPF (0-5) A 09/18/24 14:10
Microbiology Results
Micro:
09/18/24 15:33 Blood Culture - Preliminary
Blood/Venous No Growth in 72 hours- Final report to follow
09/18/24 15:33 Blood Culture - Preliminary
Blood/Venous No Growth in 72 hours- Final report to follow
09/21/24 14:08 MRSA Screen - Pending
Nose
09/18/24 14:10 Urine Culture - Final
Urine Aerococcus Species
09/18/24 15:07 Influenza Types A & B ([facility]O) - Final
Nasal Swab Negative for Influenza A & B, NAAT
Negative results must be combined with clinical observations
and patient history.
Nucleic Acid Amplification test (NAAT)performed on the
[employer] platform.
Assessment / Plan
Altered Mental Status
- cefepime neurotoxicity on the differential and would resolve over several days given her normal renal function - last dose was 09/21. I would not send cefepime levels as they would not impact management.
- low dose of amoxicillin less likely to have impacted mental status
- additional differential: new ischemic infarct, brain metastases, high doses of home opioids, possible seizure and started on keppra per neurology, steroid use (last dose should have been 09/06 thus less likely) and possibly TME due to UTI
- advise against syphilis screening, has numerous other explanations and low overall concern - cancelled
- agree with checking MRI spine prior to considering LP
Possible UTI due to Aerococcus
- UA with mild pyuria, urine culture 100K aerococcus, symptoms were reported on arrival
- started on therapy known to definitely be effective about 24 hours ago - too soon to expect significant improvement if presentation is driven by UTI, I am not really convinced that her AMS or leukocytosis are soley due to UTI.
- agree with repeat UA today
Leukocytosis
- cbc with diff in the AM
- oncology comments no GCSF for at least 3 weeks
- 09/18 CXR no actue disease of the chest
[2024-09-22] MEDS: TYLENOL 650 MG PO (14:30)
[2024-09-22 15:01] VITALS: BP 127/84
--- NOTE | 2024-09-22 16:23 | PTCARENOTE ---
Pt has been very confused most of the day. Pt did urinate for this RN early this morning on the commode, but since then has not urinated. Pt getting agitated at times, complaining of pain but cant verbalize location. Pt was up and attempted to
urinated multiple times with no success, RN bladder scanned pt for 620ml of urine. Pt was then straight cathed for 450ml of urine. Resident Venita villarreal was made aware.
--- NOTE | 2024-09-22 16:23 | PHA.VAN.IN ---
Assessment
- Assessment
Renal Function: Appears similar to baseline
AUC Dosing Plan
- Dosing Variables
Dosing Weight (kg): 50
Dosing CrCl (ml/min): 71
Vd coefficient (L/kg): 0.7
- Empiric Dosing
Initial / Loading Dose: 1250mg - 09/22 09:41
Maintenance Regimen: Vancomycin 500mg Q12H starting at 1800
Estimated AUC (mcg*h/mL): 465
Estimated Peak (mcg*h/mL): 26.8
Estimated Trough (mcg/ml): 13.4
Estimated Half Life (H): 10.9
- Monitoring
No levels ordered at this time: consider levels in next few days
Pharmacokinetics Vancomycin I
- -
Patient Age: 63
Patient Sex: Female
Vancomycin Day #: 1
Indication: Genito-Urinary Tract
Requesting Provider: Dr. Ward
Pertinent Antimicrobial Allergies:
no pertinent antibiotic allergies
Height / Weight:
Height 5 ft 1 in
Actual Weight 50.1 kg
- Vital Signs / Lab Results
Temp Pulse Resp BP Pulse Ox
97.5 F 95 14 127/84 95
09/22/24 15:01 09/22/24 15:01 09/22/24 15:01 09/22/24 15:01 09/22/24 15:01
Lab Results - Hematology
09/20/24 09/21/24 09/22/24
03:31 05:37 04:45
WBC 16.4 H 24.3 H 28.1 H
Lab Results - Chemistry
09/20/24 09/21/24 09/22/24
03:31 05:37 04:45
BUN 10 8 7
Creatinine 0.4 L 0.5 L 0.5 L
Estimated Creat Clear 71 71 71
Albumin 2.3 L 2.5 L
Microbiology Results
09/18/24 15:33 Blood Culture - Preliminary
Blood/Venous No Growth in 4 days- Final report to follow
09/18/24 15:33 Blood Culture - Preliminary
Blood/Venous No Growth in 4 days- Final report to follow
09/21/24 14:08 MRSA Screen - Final
Nose No Methicillin Resistant Staphylococcus aureus isolated.
09/18/24 14:10 Urine Culture - Final
Urine Aerococcus Species
[2024-09-22 16:27] LABS: Vitamin B12 > 1000 pg/ml (239-931)
[2024-09-22 16:35] LABS: Urine Albumin Trace (Neg - Trace); Urine Bilirubin Negative (Negative); Urine Character Clear (Clear); Urine Color Yellow; Urine Glucose Negative (Negative); Urine Ketone 1+ (Negative); Urine Leukocyte Negative (Negative); Urine Nitrite Negative (Negative); Urine Occult Blood Negative (Negative); Urine Specific Gravity 1.015 (<1.030); Urine Urobilinogen Negative (Neg - 1+)
[2024-09-22] MEDS: DECADRON 4 MG PO (17:53)
[2024-09-22] MEDS: VANCOCIN HCL 500 MG 100 IV (17:53)
[2024-09-22 18:00] LABS: Folate > 20.0 ng/ml (2.76-20)
[2024-09-22 19:00] VITALS: BP 117/67
[2024-09-22] MEDS: MS CONTIN (EXTENDED RELEASE) 15 MG PO (21:23)
[2024-09-22] MEDS: KEPPRA 750 MG PO (21:23)
[2024-09-22 23:18] VITALS: BP 108/62
[2024-09-23 03:27] VITALS: BP 107/66
[2024-09-23 04:24] LABS: Hematocrit 28.6 % (37.0-47.0); Hemoglobin 9.2 g/dL (12.0-16.0); Mean Corp Hgb Conc. 32.2 g/dL (33.0-37.0); Mean Corpuscular Hgb 28.9 pg (27.0-31.0); Mean Corpuscular Volume 89.9 fL (81.0-99.0); Mean Platelet Volume 11.5 fL (7.4-10.4); Platelet Count 132 10^3/uL (130-400); Red Blood Cell Count 3.18 10^6/uL (4.20-5.40); Red Cell Dist. Width 18.6 % (11.5-14.5); White Blood Cell Count 25.4 10^3/uL (4.8-10.8)
[2024-09-23 04:40] LABS: ALT (SGPT) 12 U/L (0-35); AST (SGOT) 16 U/L (14-36); Albumin 2.3 g/dl (3.5-5.0); Alkaline Phosphatase 153 U/L (38-126); Blood Urea Nitrogen 11 mg/dl (7-17); Calcium 9.8 mg/dl (8.4-10.2); Carbon Dioxide 24 mmol/L (22-30); Chloride 99 mmol/L (98-107); Estimated Creatinine Clearance 71 ml/min; Glucose 110 mg/dl (70-99); Potassium 3.8 mmol/L (3.5-5.1); Sodium 136 mmol/L (135-145); Total Bilirubin 0.7 mg/dl (0.2-1.3); Total Protein 4.7 g/dl (6.3-8.2); eGFR > 60.00
[2024-09-23] MEDS: VANCOCIN HCL 500 MG 100 IV ×2 (05:28→17:09)
[2024-09-23] MEDS: FLUSH (NSS) 1 FLUSH IV ×2 (05:28→12:32)
[2024-09-23] MEDS: REGLAN 5 MG PO ×2 (08:03→21:36)
[2024-09-23] MEDS: DECADRON 4 MG PO (08:03)
[2024-09-23] MEDS: MS CONTIN (EXTENDED RELEASE) 15 MG PO (08:03)
[2024-09-23] MEDS: MYCOSTATIN ORAL SUSPENSION 5 ML PO (08:03)
[2024-09-23] MEDS: LIDOCAINE 4% PATCH 3 PATCH TOPICAL (08:03)
[2024-09-23] MEDS: ASPIR LOW (ENTERIC COATED) 81 MG PO (08:04)
[2024-09-23] MEDS: KEPPRA 750 MG PO ×2 (08:04→21:36)
[2024-09-23] MEDS: VESICARE 5 MG PO (08:04)
[2024-09-23] MEDS: LYRICA 75 MG PO ×2 (08:04→21:34)
[2024-09-23] MEDS: FOLVITE 1 MG PO (08:04)
[2024-09-23 08:30] VITALS: BP 125/85
[2024-09-23 08:30] LABS: % Basophils 0.2 % (0-2); % Lymphocytes 1.4 % (20.5-51.1); % Neutrophils 96.4 % (42.2-75.2); Absolute Basophils 0.1 10^3/uL (0-0.2); Absolute Immature Granulocytes 0.3 10^3/uL (0-0.05); Absolute Lymphocytes 0.4 10^3/uL (1.2-3.4); Absolute Monocytes 0.3 10^3/uL (0.1-0.6); Absolute Neutrophils 24.4 10^3/uL (1.4-6.5); Nucleated Red Blood Cells % 0 %
[2024-09-23] MEDS: SYMBICORT 160/4.5 MCG INHALER 2 PUFF INH ×2 (08:48→19:51)
--- NOTE | 2024-09-23 08:53 | W.PN.HOSP.TC ---
Addendum entered and electronically signed by Amadeo Rivera MD 09/24/24 00:17:
Attending Addendum-
I saw and evaluated the patient. I reviewed the resident�s note and agree with findings and plan as documented in the resident�s note. Sub: complains of severe pain in sacrum. easily distractable. still with confusion but able to be reoriented. seen
with friends coworkers present. Full 12 point ROS reviewed and negative except as documented- limited by MS Exam: Vitals reviewed in chart GEN-NAD heart RRR lungs clear NO BS right , Left CTA abd soft NT chest lump present Left upper port in place
Neuro AAOx2 MS 04/04
# Septic shock secondary to urinary tract infection
- off Levophed
- Blood culture-NGTD
- Ur Cx-Aerococcus
- cont Vanco day 2 for now
- Tylenol as needed for fever
- Continue to monitor
- ID input appreciated
# CIMS/Acute Delirium
- STAT CT checked- no acute changes
- restart dexamethasone due to h/o brain mets
- multifactorial
- 09/23-MRI spine-Metastatic infiltration of T12 and throughout a significant portion of the sacrum with bulky disease in these regions as described. No convincing intradural/intramedullary disease.
- 09/23-CT chest-Metastatic disease involving right thoracic outlet, chest wall, liver, adrenal glands, and spleen. T12 osseous metastatic disease and left lateral ninth rib metastatic disease.
- GOC discussion with sister in am
- increase pain meds
- decrease keppra
- repeat labs in am
# Dysphagia
- speech eval
- mech alter diet
# Thrush
- cont nystatin s/s
# Leukocytosis
- improving
- unclear etiology
- repeat CBC in am
# Acute CVA
- MRI 09/20-
1. TINY 3.2 mm ACUTE ISCHEMIC INFARCT in the posterior LEFT PARIETAL LOBE JAQUEZ RADIATA.
2. 1.2 cm OSSEOUS METASTASIS in the RIGHT FRONTAL BONE
- neuro c/s appreciated
- cont asa
- LDL 50 t/c statin
- CD- left < 50%, right 50-69%
# Seizure
- eeg reviewed
- keppra per neuro
- continuous EEG
# Hypotension
- was on Levophed-weaned off
- hold spironolactone
- cont tele
# Cancer/Mets induced Bone Pain Chronic Opioid use with dependence
- uncontrolled
- t/c pall rads
- increase back to morphine 30mg PO BID and oxy 10 prn - home dose
- monitor MS closely
# Hypokalemia-
- resolved
- repeat BMP in am
# Elevated TSH
- sub clinical hypot3
- t/c start low dose levothyroxine as OP
- repeat TSH in 4-6 weeks
# Anemia of chronic disease
-s/p tx 1 unit of blood
-CBC in am
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
- worsening
- poor prognosis
- GOC discussion
- Follows onc at [facility]
- last IV chemo September 03, next due in 3 weeks
- Lidocaine patch, morphine, Reglan, olanzapine, oxycodone, Lyrica continued
- appreciate onc input
- cont decadron
- obtain records from [facility]
# Chronic hyponatremia likely from metastatic disease
- resolved
- Continue to monitor
- repeat BMP in am
# History of asthma
-Patient not in acute exacerbation
- nebs from home continued
# Overactive bladder
-Solifenacin continued
# Essential hypertension
-spironolactone held
# DVT prophylaxis
-SCD
Dispo Possible SNF vs acute rehab on DC
CODE- Full needs code status discussion with sister present patient lacks capacity
Time spent coordinating care, review of plan of care with resident, personally reviewed records in EMR, med rec, consults, notes, labs, radiology, d/w nursing neuro� 60 mins
Original Note:
Today's Communication/Plan
-
Continue antibiotics
Spine MRI pending
Restart home pain meds dose due to intolerable pain
Restart fluids
Assessment / Plan
Assessment / Plan
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 Aerococcus positive. ID on board with vancomycin. Increased confusion. Spoke to
care nurse at [facility] today. Patient previously stage IIIb however was due for PET scan for restaging this Friday. Now likely stage IV. Dinorah Marmolejo care nurse # [phone]. Spoke to patient's POA Sister about reevaluation of full code
status. She will discuss with patients niece who also has POA. [facility] plans to continue this discussion with patient's sister tomorrow.
# Metabolic encephalopathy 2/2 septic shock 2/2 likely urinary tract infection
-Sepsis with WBC increasing
-Off levophed
-dc cefapime dc amox Continue vanco per ID
-WBC trending down
-Restart fluids
-ID appreciated
-telemetry as BP stable but with tachy
-Tylenol as needed for fever
# Generalized weakness/confusion/change in speech
UTI/anemia vs metastasis vs seizure vs stroke vs med side effect (keppra, cefepime?)
-Urgent non-contrast CT no acute findings
-decrease keppra
-Full spine w/ and w/o contrast for mets eval pending
-Consider LP/continuous EEG if no improvement
-resume home dose pain meds as pain intolerable
-U/A no infection, B12, folate wnl, chest x-ray no signs of infx
-Dexa 4mg qd for suspected intracranial edema 2/2 brain mets
-ID on board
-PT/OT
-Recommended SNF rehab when discharge
#Dysphagia
Speech eval
Soft and bite-size diet
#Hypotension
Was on levophed weaned off
resolved
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
-Opioid use with dependence
- taking morphine 30mg PO BID and oxy 10 prn at home
-Lidocaine patch for back pain with no change in oxy for risk of increased confusion per neuro
# Anemia of chronic disease
-Has required 2 units of blood
-Hemoccult stool (-)
-Currently stable at 9.8
-Heme-onc believes chemotherapy induced anemia with an inflammatory component
#thrombocytopenia
-Monitor
#acute CVA
- MRI 09/20-
1. TINY 3.2 mm ACUTE ISCHEMIC INFARCT in the posterior LEFT PARIETAL LOBE JAQUEZ RADIATA.
2. 1.2 cm OSSEOUS METASTASIS in the RIGHT FRONTAL BONE
-EEG abnormal although not clearly epileptiform
-Keppra per neuro
-ASA 81
- carotid US left < 50%, right 50-69%
-No Statin LDL 50 at goal (<70)
-Stroke order set
# [facility] Met[facility] to bone and brain
-Follows onc at [place]
-Her last IV chemo was September 03, next due in 3 weeks oncology
-Due to PET for re-staging 09/24
-CT chest with IVC to complete restaging per onc
-Lidocaine patch, morphine, Reglan, olanzapine, oxycodone, Lyrica continued
#Oral candidiasis
-White patchy lesions on tongue
-Nystatin suspension
# Chronic hyponatremia likely from metastatic disease
-Sodium 133
-daily bmp
#Elevated TSH
Subclinical hypothyroidism
Consider lose dose levo in OP
Repeat TSH in 4-6 weeks
#Hypokalemia
-resolved
-replace as needed
# Tachycardia likely from anemia/UTI
-EKG with sinus tachycardia
-monitor on tele
# History of asthma
- nebs from home as needed
# Overactive bladder/urinary retention
-Solifenacin continue
-straight cath protocol for retention
# Essential hypertension
-spironolactone held until BP stabilizes
# DVT prophylaxis
-SCD
transfer to tele
# CODE STATUS-full code
Anticipated Discharge: > 48 hours
Subjective/Interval History
-
Date of Service: September 23, 2024
Objective Data
-
Labs:
Laboratory Results
09/23/24
03:55
WBC 25.4 H
Hgb 9.2 L
Hct 28.6 L
Plt Count 132
Sodium 136
Potassium 3.8
Chloride 99
Carbon Dioxide 24
BUN 11
Creatinine 0.4 L
Glucose 110 H
Calcium 9.8
Total Bilirubin 0.7
AST 16
ALT 12
Alkaline Phosphatase 153 H
Vital Signs:
Vital Signs
Temp Pulse Resp BP Pulse Ox
97.5 F 80 14 107/66 94
09/23/24 03:27 09/23/24 03:27 09/23/24 03:27 09/23/24 03:27 09/23/24 03:27
I&O
09/22/24 09/23/24 09/24/24
06:59 06:59 06:59
Intake Total 720 / 720 150 / 150
Output Total 1130 / 1130
Balance 720 / 720 -980 / -980
Review of Systems
-
History Source: Patient
Constitutional: Reports No Symptoms
EENT: Reports No Symptoms Reported
Respiratory: Reports No Symptoms
Cardiac: Reports No Symptoms
Abdomen/GI: Reports No Symptoms
Genitourinary: Reports No Symptoms
Neuro: Reports No Symptoms
Physical Exam
-
General: Comfortable
HEENT: Thrush
Respiratory: Clear to Auscultation
Cardiac: Regular Rhythm and S1/S2
GI: Soft and Nontender
Skin: Warm
Neuro: Awake, Slurred Speech and Other (Poor pupillary constriction, right tongue deviation); Negative Alert or Oriented
Psych: Confused
--- NOTE | 2024-09-23 08:53 | W.PN.ONC2 ---
Today's Communication / Plan
-
I called pt sister, JOANNE Larsen since pt has AMS and I do not believe that she has any insight on her status and I do not believe that she can make her own medical decisions. I also collaborated with Dr. Law Espitia, her primary medical oncologist via
phone. Pt had CT ab/pelvis w IVC and MRI brain. I will order CT chest with IVC to complete restaging. I provided updates to Suzie regarding my conversation with Dr. Espitia and current clinical status. She would like meet tomorrow morning to discuss
GOC and advanced care planning. I provided updates to the hospitalist via tiger text.
>50% of visit was spent on education, counseling, and coordination of care -45min
Impression
Impression
- Sepsis with UTI
- acute on chronic anemia
- chemotherapy induced thrombocytopenia resolved
- leukocytosis
- metastatic lung adenocarcinoma with brain, liver, bone metastases. 09/20 MRI brain no intraparenchymal metastatic disease. right frontal bone met.
-3.2 mm acute ischemic infarct posterior left parietal lobe
-AMS
Plan
Plan
# Anemia multifactorial chemotherapy, AOCD
- hgb on presentation 6.3 g/dl with most recent prior on 09/01 of 7.7.
-f/u heme stool
- CBC daily, transfuse for hgb < 7.5 g/dl. s/p 2 unit prbc during hospitalization, last 09/20
# Leukocytosis
-No G-CSf given with chemo 09/03 due to WBC of 27 on day of tx. therefore WBC due to infection vs. malignancy + steroid
- monitor fever curve, WBC trend.
-apprec ID assist
# stage IV NSCLC
- follows with Dr. Rodríguez at [facility]
- on carbo/pem/keytruda, s/p C3
- no signs or symptoms to suggest ICI.
- solitary brain foci on MRI in July, not treated due to small size
-f/u MRI C, T, L spine
- defer to primary oncology team for ongoing management.
#acute CVA on asa -neuro following
#on keppra for possible seizure activity
#AMS Keppra and ER morphine doses reduced to see if improves MS
Subjective/Objective
Subjective
afebrile, no hypoxia or hypotension
restless
uncontrolled low back and sacral pain
constipation
Dr. Kern (pt friend) and KELLY Wei (friend) at bedside who expressed that pt PS and mental status has much declined since the last time the spoke with pt.
Vital Signs:
Vital Signs
Temp Pulse Resp BP Pulse Ox
97.5 F 80 14 107/66 94
09/23/24 03:27 09/23/24 03:27 09/23/24 03:27 09/23/24 03:27 09/23/24 03:27
Lab Results:
Laboratory Data
WBC 25.4 10^3/uL (4.8-10.8) H 09/23/24 03:55
Hgb 9.2 g/dL (12.0-16.0) L 09/23/24 03:55
Plt Count 132 10^3/uL (130-400) 09/23/24 03:55
PT 19.5 Sec (11.4-14.6) H 09/18/24 15:07
INR 1.66 09/18/24 15:07
APTT 39.2 Sec (23.4-35.0) H 09/18/24 15:07
eGFR > 60.00 09/23/24 03:55
Physical Exam
General: no acute distress. restless
HEENT: Negative Jaundice
Cardiology: Normal Sinus Rhythm
Pulmonary: right lung diminished. Left lung clear
GI: Soft;
Extremities: no Edema
Neurology: speech clear, oriented to name and in DH, unable to state date. Following commands.
Psych: restless
--- NOTE | 2024-09-23 10:09 | PHA.VAN.FU ---
Vancomycin Assessment / Plan
- Assessment
Renal Function: Stable
WBC's are: Trending Down
In the past 24 hrs, patient has been: Afebrile
- Dosing Plan
Continue: Vanc 500mg Q12H
- Monitoring Plan
No level(s) ordered at this time: consider levels in next few days
- Follow Up
Pharmacy will continue to follow.
Vancomycin Follow UP
- -
Patient Age: 63
Patient Sex: Female
Vancomycin Day #: 2
Indication: Genito-Urinary Tract
Requesting Provider: Dr. Ward
Pertinent Antimicrobial Allergies:
no pertinent antibiotic allergies
Height / Weight:
Height 5 ft 1 in
Actual Weight 50.1 kg
- Vital Signs / Lab Results
Temp Pulse Resp BP Pulse Ox
97.5 F 101 16 107/66 98
09/23/24 03:27 09/23/24 08:52 09/23/24 08:52 09/23/24 03:27 09/23/24 08:52
Lab Results - Hematology
09/21/24 09/22/24 09/23/24
05:37 04:45 03:55
WBC 24.3 H 28.1 H 25.4 H
Lab Results - Chemistry
09/21/24 09/22/24 09/23/24
05:37 04:45 03:55
BUN 8 7 11
Creatinine 0.5 L 0.5 L 0.4 L
Estimated Creat Clear 71 71 71
Albumin 2.3 L 2.5 L 2.3 L
Lab Results - Urine
09/22/24
16:26
Urine Nitrite (Reflex) Negative
Leukocyte Esterase Rfl Negative
Microbiology Results
09/18/24 15:33 Blood Culture - Preliminary
Blood/Venous No Growth in 4 days- Final report to follow
09/18/24 15:33 Blood Culture - Preliminary
Blood/Venous No Growth in 4 days- Final report to follow
09/21/24 14:08 MRSA Screen - Final
Nose No Methicillin Resistant Staphylococcus aureus isolated.
09/18/24 14:10 Urine Culture - Final
Urine Aerococcus Species
[2024-09-23] MEDS: TYLENOL 650 MG PO (10:53)
[2024-09-23 12:00] VITALS: BP 122/68
[2024-09-23] MEDS: DILAUDID 0.25 MG IV (12:14)
[2024-09-23] MEDS: LIDOCAINE 4% PATCH 1 PATCH TOPICAL (12:14)
[2024-09-23] MEDS: ATIVAN 1 MG IV ×2 (12:31→22:29)
--- NOTE | 2024-09-23 12:51 | W.PN.ID1 ---
Date of Service
Date of Service: September 23, 2024
Today's Communication
can continue vancomycin for now
Assessment / Plan
Altered Mental Status
stage IV NSCLC
- differential: new ischemic infarct, brain metastases, home opioids, possible seizure and started on keppra per neurology, cefepime neurotoxicity and possibly TME due to UTI - low dose of amoxicillin less likely to have impacted mental status
- agree with checking MRI spine prior to considering LP - she did not have meningeal signs 09/22
Possible UTI due to Aerococcus
- 09/18 UA with mild pyuria, urine culture 100K aerococcus, symptoms were reported on arrival
- note that repeat UA 09/22 no pyuria - did not reflex to culture
- I am not really convinced that her AMS or leukocytosis are soley due to UTI; persistent symptoms likely with another cause given improving UA
- fine to continue vancomycin at this time
Leukocytosis
- cbc with diff does show L shift, no eosinophilia
- oncology comments no GCSF for at least 3 weeks
Note oncology plans for restaging and goals of care conversation tomorrow
Chief Complaint
-: UTI and Other (AMS)
Subjective / Review of Systems
Nonbillable note: patient out of the room for 4 MRIs, will be off of the floor most of the day
remains afebrile
bp stable
was retaining urine and straight cathed last night
found on the ground last night - thought to have been praying - she was confused
restaging being done by oncology, goals of care discussions ongoing
Objective Data
Lab Data
Lab Results
09/23/24 03:55
09/23/24 03:55
PT 19.5 Sec (11.4-14.6) H 09/18/24 15:07
INR 1.66 09/18/24 15:07
APTT 39.2 Sec (23.4-35.0) H 09/18/24 15:07
Estimated Creat Clear 71 ml/min 09/23/24 03:55
Lactic Acid 0.7 mmol/L (0.7-2.0) 09/18/24 18:05
Total Bilirubin 0.7 mg/dl (0.2-1.3) 09/23/24 03:55
AST 16 U/L (14-36) 09/23/24 03:55
ALT 12 U/L (0-35) 09/23/24 03:55
Alkaline Phosphatase 153 U/L (38-126) H 09/23/24 03:55
Most recent labs reviewed.
Micro Results:
09/22/24 13:53 Blood Culture - Pending
Blood/Venous
09/18/24 15:33 Blood Culture - Preliminary
Blood/Venous No Growth in 4 days- Final report to follow
09/18/24 15:33 Blood Culture - Preliminary
Blood/Venous No Growth in 4 days- Final report to follow
09/21/24 14:08 MRSA Screen - Final
Nose No Methicillin Resistant Staphylococcus aureus isolated.
09/18/24 14:10 Urine Culture - Final
Urine Aerococcus Species
09/18/24 15:07 Influenza Types A & B (MACO) - Final
Nasal Swab Negative for Influenza A & B, NAAT
Negative results must be combined with clinical observations
and patient history.
Nucleic Acid Amplification test (NAAT)performed on the
[employer] platform.
[2024-09-23] MEDS: MYCOSTATIN ORAL SUSPENSION PO ×3 (14:01→21:38)
[2024-09-23] MEDS: REGLAN PO ×2 (14:01→17:09)
[2024-09-23 15:23] VITALS: BP 124/52
[2024-09-23] MEDS: NSS 1000 IV (15:54)
--- NOTE | 2024-09-23 16:28 | W.PN.NEURO.1 ---
Today's Communication / Plan
-
goals of care discussion tomorrow
Neuro Assessment/Plan
Assessment
63 year-old female who has followed with me as an outpatient since 2019 for migraine admitted 09/18 with generalized weakness and confusion for several days prior felt to be due to encephalopathy with urosepsis.
Differentials for the patient's presentation include:
1. Left parietal lobe tiny ischemic infarct, incidental finding on MRI brain
2. T12 lesion spine metastases.
3. TME in the setting of UTI.
4. Right frontal bone and left parietal metastatic lesions.
5. Primary lung cancer with mets to the liver, brain, and bone.
6. EEG showed some nonepileptic abnormalities, no seizures captured, started on Keppra 1000mg BID two days ago in case she has been having seizures; there is concern that she may be more sedated since starting Keppra so we will lower her dose
slightly.
7. Oral candidiasis.
Patient has the following risk factors for their symptoms: Primary lung cancer with mets to the liver, brain, and bone, UTI, new stroke, T12 lesion
IV Tenecteplase/IAT candidacy: Not a candidate due to unclear time of onset of symptoms, outside of time window, no evidence of LVO.
Results:
MRI C/T/L spines w/wo done today:
Metastatic infiltration of T12 and throughout a significant portion of the sacrum with bulky disease in these regions as described. No convincing intradural/intramedullary disease.
Mild degenerative changes of the spine.
Also partially visualized on this exam (in addition to the described right chest wall mass) are a right axillary enhancing mass and adrenal gland enhancing metastases, better evaluated on same-day CT chest.
CT chest done today:
Metastatic disease involving right thoracic outlet, chest wall, liver, adrenal glands, and spleen. T12 osseous metastatic disease and left lateral ninth rib metastatic disease.
Stat HCT done yesterday AM after worsening encephalopathy:
There are no focal or acute intracranial abnormalities.
There is mild cortical and cerebellar atrophy.
MRI brain 10/21/24: TINY 3.2 mm ACUTE ISCHEMIC INFARCT in the posterior LEFT PARIETAL LOBE JAQUEZ RADIATA. Mild white matter leukoaraiosis in both cerebral hemispheres. Mild diffuse cerebral and cerebellar volume loss. 1.2 cm OSSEOUS METASTASIS in
the RIGHT FRONTAL BONE.
EEG, 09/21:
Moderately to severely abnormal study for age based on bursts of generalized and generalized slowing demonstrated bihemispherically equally. Intermittent anteriorly predominant rhythmic and rhythmic delta activity (2.5/second) which was medium
amplitude lasting up to one second
CLINICAL CORRELATION:
This study was suggestive of a generalized cortical disruption which was non-epileptiform.
CUS, 09/21:
Mixed atherosclerotic plaque involving the right carotid bulb and ICA with ICA/CCA ratio of 2.15 consistent with 50-69% stenosis. No velocity measurements greater than 180 cm/s are seen at any ICA level.
Minimal atherosclerotic plaque involving the left carotid bulb and ICA with velocity measurements consistent with less than 50% stenosis.
Antegrade flow in the bilateral vertebral arteries.
Plan
Recommendations:
-continue Keppra to 750mg BID; had an EEG 09/21.
-reviewed MRI spine results
-oncology following, to have goals of care discussion with family tomorrow; will hold off on LP until after this discussion
-Continue aspirin 81mg daily for stroke prevention, okay per heme/onc.
-Goal normotension.
-LDL goal <70. LDL is 50. Okay to hold off initiating statin therapy as LDL is significantly below gaol.
-Goal normoglycemia, hbA1c is pending.
-LFTs normal, alk phos 176, ammonia level negative, TSH elevated at 8.26
-NIHSS and neurological checks per unit guidelines.
-Provide patient with a stroke education packet.
-PT/OT/ST evaluations.
-DVT prophylaxis.
Subjective/Objective
Subjective Data
Date of Service: September 23, 2024
remains confused, did receive sedation today before MRI
Objective Data
Vital Signs
Temp Pulse Resp BP Pulse Ox
97.5 F 104 18 122/68 96
09/23/24 12:00 09/23/24 12:00 09/23/24 12:00 09/23/24 12:00 09/23/24 12:00
Lab Results
09/23/24 03:55
09/23/24 03:55
PT 19.5 Sec (11.4-14.6) H 09/18/24 15:07
INR 1.66 09/18/24 15:07
APTT 39.2 Sec (23.4-35.0) H 09/18/24 15:07
Sodium 136 mmol/L (135-145) 09/23/24 03:55
Potassium 3.8 mmol/L (3.5-5.1) 09/23/24 03:55
BUN 11 mg/dl (7-17) 09/23/24 03:55
Glucose 110 mg/dl (70-99) H 09/23/24 03:55
Calcium 9.8 mg/dl (8.4-10.2) 09/23/24 03:55
LDL Cholesterol, Calc 50 mg/dl 09/21/24 05:37
Vitamin B12 > 1000 pg/ml (239-931) H 09/22/24 04:45
Patient Allergies
amitriptyline [From Elavil] Allergy (Verified 08/18/21 12:01)
Rash
Physical Exam
Extended Neurological Exam
Attention Span & Concentration: Other (opens eyes to voice with sternal rub and followed one basic command (squeezed my hand); mute today)
Memory: Unable to Assess
Speech: Mute
Cranial Nerve II: Left Eye: Pupillary Reactivity Unremarkable and Pupillary Size Unremarkable
Cranial Nerve II: Right Eye: Pupillary Reactivity Unremarkable and Pupillary Size Unremarkable
Cranial Nerves III, IV, : Extraocular Movement: Other (very limited exam, no clear gaze palsy)
Muscle Strength, Overall: Negative Spontaneously Moves
Deep Tendon Reflexes: 3+
Coordination: Unable to Assess
--- NOTE | 2024-09-23 17:05 | CM ---
Reviewed chart, patient becoming increasingly confused. SNF is indicated, will discuss with patient's family.
Plan: Case management will continue to follow and assist with discharge planning. Possible SNF.
[2024-09-23 19:38] VITALS: BP 114/71
[2024-09-23] MEDS: MS CONTIN (EXTENDED RELEASE) 30 MG PO (21:38)
[2024-09-23 23:24] VITALS: BP 120/76
[2024-09-24 03:21] VITALS: BP 120/72
[2024-09-24] MEDS: NSS 1000 IV ×2 (05:23→18:15)
[2024-09-24] MEDS: VANCOCIN HCL 500 MG 100 IV ×2 (06:15→18:15)
[2024-09-24 06:32] LABS: Hematocrit 29.1 % (37.0-47.0); Hemoglobin 9.5 g/dL (12.0-16.0); Mean Corp Hgb Conc. 32.6 g/dL (33.0-37.0); Mean Corpuscular Volume 88.7 fL (81.0-99.0); Mean Platelet Volume 10.3 fL (7.4-10.4); Platelet Count 183 10^3/uL (130-400); Red Blood Cell Count 3.28 10^6/uL (4.20-5.40); Red Cell Dist. Width 18.6 % (11.5-14.5); White Blood Cell Count 33.4 10^3/uL (4.8-10.8)
[2024-09-24 07:00] VITALS: BP 146/73
[2024-09-24 07:44] LABS: Blood Urea Nitrogen 10 mg/dl (7-17); Calcium 9.2 mg/dl (8.4-10.2); Carbon Dioxide 22 mmol/L (22-30); Chloride 101 mmol/L (98-107); Estimated Creatinine Clearance 71 ml/min; Glucose 81 mg/dl (70-99); Magnesium 1.6 mg/dl (1.6-2.3); Potassium 3.6 mmol/L (3.5-5.1); Sodium 136 mmol/L (135-145); eGFR > 60.00
[2024-09-24] MEDS: SYMBICORT 160/4.5 MCG INHALER 2 PUFF INH ×2 (07:53→19:35)
--- NOTE | 2024-09-24 08:30 | PHA.VAN.FU ---
Vancomycin Assessment / Plan
- Assessment
Renal Function: Stable
WBC's are: Trending Up
In the past 24 hrs, patient has been: Afebrile
Concomitant Antimicrobials: vancomycin
- Dosing Plan
Continue: Vanc 500mg Q12H
- Monitoring Plan
No level(s) ordered at this time: will hold off on level for now pending possible hospice
- Follow Up
Pharmacy will continue to follow.
Vancomycin Follow UP
- -
Patient Age: 63
Patient Sex: Female
Vancomycin Day #: 3
Indication: Genito-Urinary Tract
Requesting Provider: Dr. Ward
Pertinent Antimicrobial Allergies:
no pertinent antibiotic allergies
Height / Weight:
Height 5 ft 1 in
Actual Weight 50.1 kg
Pertinent Past Medical History: stage IV NSCLC
- Vital Signs / Lab Results
Temp Pulse Resp BP Pulse Ox
98.6 F 71 16 120/72 96
09/23/24 23:24 09/24/24 07:57 09/24/24 07:57 09/24/24 03:21 09/24/24 07:57
Lab Results - Hematology
09/22/24 09/23/24 09/24/24
04:45 03:55 06:13
WBC 28.1 H 25.4 H 33.4 H
Lab Results - Chemistry
09/22/24 09/23/24 09/24/24
04:45 03:55 06:13
BUN 7 11 10
Creatinine 0.5 L 0.4 L 0.4 L
Estimated Creat Clear 71 71 71
Albumin 2.5 L 2.3 L
Microbiology Results
09/18/24 15:33 Blood Culture - Final
Blood/Venous No Growth - Final Report
09/18/24 15:33 Blood Culture - Final
Blood/Venous No Growth - Final Report
09/22/24 13:53 Blood Culture - Preliminary
Blood/Venous No Growth in 24 hours- Final report to follow
09/21/24 14:08 MRSA Screen - Final
Nose No Methicillin Resistant Staphylococcus aureus isolated.
[2024-09-24] MEDS: LIDOCAINE 4% PATCH 4 PATCH TOPICAL (09:05)
[2024-09-24] MEDS: ASPIR LOW (ENTERIC COATED) 81 MG PO (09:06)
[2024-09-24] MEDS: MS CONTIN (EXTENDED RELEASE) 30 MG PO ×2 (09:06→21:12)
[2024-09-24] MEDS: VESICARE 5 MG PO (09:06)
[2024-09-24] MEDS: MYCOSTATIN ORAL SUSPENSION 5 ML PO ×2 (09:06→12:30)
[2024-09-24] MEDS: FOLVITE 1 MG PO (09:07)
[2024-09-24] MEDS: KEPPRA 750 MG PO ×2 (09:07→21:12)
[2024-09-24] MEDS: REGLAN 5 MG PO ×3 (09:07→21:12)
[2024-09-24] MEDS: LYRICA 75 MG PO ×2 (09:07→21:12)
[2024-09-24] MEDS: DECADRON 4 MG PO ×2 (09:07→21:13)
--- NOTE | 2024-09-24 09:33 | W.PN.HOSP.TC ---
Addendum entered and electronically signed by Amadeo Rivera MD 09/24/24 21:31:
Attending Addendum-
I saw and evaluated the patient. I reviewed the resident�s note and agree with findings and plan as documented in the resident�s note. Sub: appears sedated, arousable. no complaints. 'i know you're taking care of me' Full 12 point ROS reviewed and
negative except as documented- limited by MS Exam: Vitals reviewed in chart GEN-NAD heart RRR lungs clear NO BS right , Left CTA abd soft NT chest lump present Left upper port in place Neuro AAOx1
# Septic shock secondary to urinary tract infection
- resolved
- off Levophed
- Blood culture-NGTD
- Ur Cx-Aerococcus
- cont Vanco day 3 for now
- Tylenol as needed for fever
- Continue to monitor
- ID input appreciated
# CIMS/Acute Delirium/Seizure
- poor prog
- 09/23-MRI spine-Metastatic infiltration of T12 and throughout a significant portion of the sacrum with bulky disease in these regions as described. No convincing intradural/intramedullary disease.
- 09/23-CT chest-Metastatic disease involving right thoracic outlet, chest wall, liver, adrenal glands, and spleen. T12 osseous metastatic disease and left lateral ninth rib metastatic disease.
- GOC discussion with sister- DC home on hospice on Friday
- increase pain meds
- decrease keppra
- repeat labs in am
# Dysphagia
- mech alter diet
# Thrush
- cont nystatin s/s
# Leukocytosis
- worsening
- stop all blood draws
# Acute CVA
- MRI 09/20-
1. TINY 3.2 mm ACUTE ISCHEMIC INFARCT in the posterior LEFT PARIETAL LOBE JAQUEZ RADIATA.
2. 1.2 cm OSSEOUS METASTASIS in the RIGHT FRONTAL BONE
- neuro c/s appreciated
- cont asa
- CD- left < 50%, right 50-69%
# Seizure-NEW
- keppra per neuro
# Hypotension
- resolved
- was on Levophed-weaned off
- hold spironolactone
- cont tele
# Cancer/Mets induced Bone Pain Chronic Opioid use with dependence
- pain control
- poor prog
- t/c pall rads
- increase back to morphine 30mg PO BID and oxy 10 prn - home dose
- increase dexamethasone
- comfort care
# Hypokalemia-
- resolved
# Elevated TSH
- sub clinical hypot3
# Anemia of chronic disease
-s/p tx 1 unit of blood
# NSCLC stage IV met to bone/brain
- worsened met disease
- poor prognosis
- GOC discussion-> Hospice
- Follows onc at [facility]
- appreciate onc input
- cont decadron and pain control
# Chronic hyponatremia likely from metastatic disease
- resolved
# Overactive bladder
-Solifenacin continued
# Essential hypertension
-spironolactone held
# asthma
- cont inhalers/nebs
Dispo DC home on friday on hospice
CODE- FULL-->DNR/DNI d/w sister 09/24
ACP
Patient unable to consent to discuss, was with sister, time spent explanation of advance directives, changes in health status, patient�s health care wishes if the patient becomes unable to make health decisions, goals of care, code status, and
prognosis transition to DNR and hospice- 16 minutes
Time spent coordinating care, review of plan of care with resident, personally reviewed previous records in EMR, med rec, labs, radiology, d/w nursing, family, hospice total time documented is exclusive of any additional time listed that was spent
in advance care planning discussion - 52 minutes
Original Note:
Today's Communication/Plan
-
Plans to transfer to hospice on Friday
Now DNR
Continue anti-biotics and fluids until transfer
Assessment / Plan
Assessment / Plan
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 Aerococcus positive. ID on board with vancomycin. Increased confusion. Spoke to
care nurse at [facility] today. Patient previously stage IIIb however was due for PET scan for restaging this Friday. Now likely stage IV. Dinorah Marmolejo care nurse # [phone]. Spoke to patient's POA Sister about reevaluation of full code
status. She will discuss with patients niece who also has POA. Discussed with hospice nurse. Plans to transfer to hospice on friday.
# Metabolic encephalopathy 2/2 septic shock 2/2 likely urinary tract infection
-Sepsis with WBC increasing
-Off levophed
-dc cefapime dc amox Continue vanco day 2
-WBC trending up today 33
-Continue fluids
-ID appreciated
-telemetry as BP stable but with tachy
-Tylenol as needed for fever
-Continue fluids and antibiotics until pt moves to hospice
# Generalized weakness/confusion/change in speech
UTI/anemia vs metastasis vs seizure vs stroke vs med side effect (keppra, cefepime?)
-Urgent non-contrast CT no acute findings
-continue lower dose keppra
-Spine MRI and Chest CT 09/23 confirmed Stage 4 with mets to right thoracic outlet, chest wall, liver, adrenal glands, and spleen. T12 osseous metastatic disease and left lateral ninth rib metastatic disease,a significant portion of the sacrum,
-Brain Right frontal bone and left parietal metastatic lesions
-Hold off on LP/continuous EEG as patient plans to move to hospice
-resume home dose pain meds as pain intolerable
-U/A no infection, B12, folate wnl, chest x-ray no signs of infx
-Dexa 4mg qd -> BID for suspected intracranial edema 2/2 brain mets
-ID on board
-Patient plans to move to hospice on friday
#Dysphagia
Speech eval
Soft and bite-size diet
#Hypotension
Was on levophed weaned off
resolved
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
-Opioid use with dependence
- taking morphine 30mg PO BID and oxy 10 prn at home
-Comfort care morphine protocol ordered for patient as she has been refusing oral meds
-Lidocaine patch for back pain
# Anemia of chronic disease
-Has required 2 units of blood
-Hemoccult stool (-)
-Currently stable at 9.5
-Heme-onc believes chemotherapy induced anemia with an inflammatory component
#thrombocytopenia
-Monitor
#acute CVA
- MRI 09/20-
1. TINY 3.2 mm ACUTE ISCHEMIC INFARCT in the posterior LEFT PARIETAL LOBE JAQUEZ RADIATA.
2. 1.2 cm OSSEOUS METASTASIS in the RIGHT FRONTAL BONE
-EEG abnormal although not clearly epileptiform
-Keppra per neuro
-ASA 81
- carotid US left < 50%, right 50-69%
-No Statin LDL 50 at goal (<70)
-Stroke order set
-Continue asa and keppra until move to hospice
# [facility] Metastatic cancer to bone and brain
-Follows onc at [facility]
-Her last IV chemo was September 03, next due in 3 weeks oncology
-Due to PET for re-staging 09/24
-Stage 4 with mets to right thoracic outlet, chest wall, liver, adrenal glands, and spleen. T12 osseous metastatic disease and left lateral ninth rib metastatic disease,a significant portion of the sacrum,
-Brain Right frontal bone and left parietal metastatic lesions.
-Lidocaine patch, morphine, Reglan, olanzapine, oxycodone, Lyrica continued
-Plans to move to hospice on friday
#Oral candidiasis
-White patchy lesions on tongue
-Nystatin suspension
-Continue until transfer to hospice
# Chronic hyponatremia likely from metastatic disease
-Sodium 136 today
-daily bmp
#Elevated TSH
Subclinical hypothyroidism
re-evaluate in OP if pt does not move to hospice
#Hypokalemia
-resolved
-replace as needed
# Tachycardia likely from anemia/UTI
-EKG with sinus tachycardia
-monitor on tele
# History of asthma
- nebs from home as needed
# Overactive bladder/urinary retention
-Solifenacin continue
-straight cath protocol for retention
# Essential hypertension
-spironolactone held until BP stabilizes
# DVT prophylaxis
-SCD
# CODE STATUS-full code
Anticipated Discharge: > 48 hours
Subjective/Interval History
-
Date of Service: September 24, 2024
Objective Data
-
Labs:
Laboratory Results
09/24/24
06:13
WBC 33.4 H
Hgb 9.5 L
Hct 29.1 L
Plt Count 183 D
Sodium 136
Potassium 3.6
Chloride 101
Carbon Dioxide 22
BUN 10
Creatinine 0.4 L
Glucose 81
Calcium 9.2
Vital Signs:
Vital Signs
Temp Pulse Resp BP Pulse Ox
97.9 F 71 16 146/73 96
09/24/24 07:00 09/24/24 07:57 09/24/24 07:57 09/24/24 07:00 09/24/24 07:57
I&O
09/23/24 09/24/24 09/25/24
06:59 06:59 06:59
Intake Total 150 / 150 360 / 360
Output Total 1130 / 1130 475 / 475
Balance -980 / -980 -115 / -115
Review of Systems
-
History Source: Patient
EENT: Reports No Symptoms Reported
Respiratory: Reports No Symptoms
Cardiac: Reports No Symptoms
Abdomen/GI: Reports No Symptoms
Musculoskeletal: Reports No Symptoms
Neuro: Reports No Symptoms
Physical Exam
-
General: Comfortable and Appears Chronically Ill
HEENT: Thrush
Respiratory: Clear to Auscultation
Cardiac: Regular Rhythm and S1/S2
GI: Soft and Nontender
Musculoskeletal: No Edema
Skin: Dry
Neuro: Awake and Other (Pupills poorly reactive to light); Negative Alert or Oriented
Psych: Calm
--- NOTE | 2024-09-24 09:37 | W.PN.NEURO.1 ---
Today's Communication / Plan
-
continue Keppra to 750mg BID; had an EEG 09/21.
goals of care discussion with family consider lumbar puncture after this discussion if aggressive diagnosis and treatment is still sought
Neuro Assessment/Plan
Assessment
63 year-old female admitted 09/18 with generalized weakness and confusion for several days prior felt to be due to encephalopathy with urosepsis.
Differentials for the patient's presentation include:
1. Left parietal lobe tiny ischemic infarct, incidental finding on MRI brain
2. T12 lesion spine metastases.
3. TME in the setting of UTI.
4. Right frontal bone and left parietal metastatic lesions.
5. Primary lung cancer with mets to the liver, brain, and bone.
6. EEG showed some nonepileptic abnormalities, no seizures captured, started on Keppra 1000mg BID two days ago in case she has been having seizures; there is concern that she may be more sedated since starting Keppra so we will lower her dose
slightly.
7. Oral candidiasis.
Results:
MRI C/T/L spines w/wo done:
Metastatic infiltration of T12 and throughout a significant portion of the sacrum with bulky disease in these regions as described. No convincing intradural/intramedullary disease.
Mild degenerative changes of the spine.
Also partially visualized on this exam (in addition to the described right chest wall mass) are a right axillary enhancing mass and adrenal gland enhancing metastases, better evaluated on same-day CT chest.
CT chest done today:
Metastatic disease involving right thoracic outlet, chest wall, liver, adrenal glands, and spleen. T12 osseous metastatic disease and left lateral ninth rib metastatic disease.
Stat HCT done yesterday AM after worsening encephalopathy:
There are no focal or acute intracranial abnormalities.
There is mild cortical and cerebellar atrophy.
MRI brain 09/20/24: TINY 3.2 mm ACUTE ISCHEMIC INFARCT in the posterior LEFT PARIETAL LOBE JAQUEZ RADIATA. Mild white matter leukoaraiosis in both cerebral hemispheres. Mild diffuse cerebral and cerebellar volume loss. 1.2 cm OSSEOUS METASTASIS in
the RIGHT FRONTAL BONE.
EEG, 09/21:
Moderately to severely abnormal study for age based on bursts of generalized and generalized slowing demonstrated bihemispherically equally. Intermittent anteriorly predominant rhythmic and rhythmic delta activity (2.5/second) which was medium
amplitude lasting up to one second
CLINICAL CORRELATION:
This study was suggestive of a generalized cortical disruption which was non-epileptiform.
CUS, 09/21:
Mixed atherosclerotic plaque involving the right carotid bulb and ICA with ICA/CCA ratio of 2.15 consistent with 50-69% stenosis. No velocity measurements greater than 180 cm/s are seen at any ICA level.
Minimal atherosclerotic plaque involving the left carotid bulb and ICA with velocity measurements consistent with less than 50% stenosis.
Antegrade flow in the bilateral vertebral arteries.
Plan
Recommendations:
continue Keppra to 750mg BID; had an EEG 09/21.
goals of care discussion with family consider lumbar puncture after this discussion if aggressive diagnosis and treatment is still sought
-Continue aspirin 81mg daily for stroke prevention, okay per heme/onc.
-LDL goal <70. LDL is 50. Okay to hold off initiating statin therapy as LDL is significantly below gaol.
-Goal normoglycemia, hbA1c is pending.
We will follow peripherally.
Subjective/Objective
Subjective Data
Date of Service: September 24, 2024
Patient unable to provide her own medical history.
Objective Data
Vital Signs
Temp Pulse Resp BP Pulse Ox
36.6 C 71 16 146/73 96
09/24/24 07:00 09/24/24 07:57 09/24/24 07:57 09/24/24 07:00 09/24/24 07:57
Lab Results
09/24/24 06:13
09/24/24 06:13
PT 19.5 Sec (11.4-14.6) H 09/18/24 15:07
INR 1.66 09/18/24 15:07
APTT 39.2 Sec (23.4-35.0) H 09/18/24 15:07
Sodium 136 mmol/L (135-145) 09/24/24 06:13
Potassium 3.6 mmol/L (3.5-5.1) 09/24/24 06:13
BUN 10 mg/dl (7-17) 09/24/24 06:13
Glucose 81 mg/dl (70-99) 09/24/24 06:13
Calcium 9.2 mg/dl (8.4-10.2) 09/24/24 06:13
LDL Cholesterol, Calc 50 mg/dl 09/21/24 05:37
Vitamin B12 > 1000 pg/ml (239-931) H 09/22/24 04:45
Patient Allergies
amitriptyline [From Elavil] Allergy (Verified 08/18/21 12:01)
Rash
Review of Systems
-
Unable to obtain full review of systems at this time due to: Other (Change in mental status)
History Source: Patient
All other systems: Reviewed and negative
Physical Exam
-
General: No Apparent Distress, Appears Stated Age and Restrained
Eyes: Round OU, [place] Conjunctivae and No Ptosis
HEENT: Anicteric and Moist Mucous Membranes
Neck: Full Range of Motion
Respiratory: No Dyspnea
Cardiac: No JVD
GI: Non-distended
Skin: Unremarkable
Extremities: No Clubbing, No Cyanosis and No Edema
Psych: Negative Intact Judgement/Insight
Extended Neurological Exam
Mood & Affect: Mood Unremarkable and Affect Unremarkable
Attention Span & Concentration: Awake and Interactive; Negative Alert
Memory: Unable to Recall Personal History
Tremor: Hand Tremor Absent and Head Tremor Absent
Speech: Quantity Unremarkable and Other (Perseverative)
Cranial Nerve II: Left Eye: Pupillary Size Unremarkable and Visual Romano Grossly Intact
Cranial Nerve II: Right Eye: Pupillary Size Unremarkable and Visual Romano Grossly Intact
Cranial Nerves III, IV, : Extraocular Movement: Grossly Intact
Cranial Nerve VII: Facial Symmetry: Normal Facial Symmetry
Cranial Nerve VIII: Hearing: Unremarkable Hearing to Normal Conversational Volume
Cranial Nerve XI: Shoulder Shrug: Unremarkable
Muscle Strength, Overall: Full in Upper Extremities
Muscle Bulk & Tone: Bulk Unremarkable and Tone Unremarkable
Pronator Drift: Unable to Assess
Touch Sensation: Unremarkable
Gait & Station: Unable to Assess
Data Reviewed
-
Labs: Report Reviewed
Reviewed with: Physician, Nurse Practioner and Patient
Old Records: Summarized
Past History
Past History
ED Past Medical History: Asthma, HTN and Other (Kidney stones, hyper aldosteronism, Ulcers)
ED Past Surgical History: Other (Kidney stones)
Social History
Tobacco: Former smoker
Alcohol: Occasional
Personal: Single
Living: with family
Employment: Employed
Family History
Family History: Other (n/c)
Medications
-
Medications:
Generic Name Dose Route Start Last Admin
Trade Name Freq PRN Reason Stop Dose Admin
Acetaminophen 650 mg 09/18/24 19:58 09/23/24 10:53
Acetaminophen 325 Mg Tablet PO 10/16/24 19:57 650 mg
Q4HPRN PRN Administration
OLIVARES/mild pain/temp > 100.4 F
Acetaminophen 650 mg 09/18/24 19:58
Acetaminophen 650 Mg Rectal Suppository RECTAL 10/16/24 19:57
Q4HPRN PRN
OLIVARES/ mild pain/ temp >/= 100.4F
Albuterol Sulfate 2.5 mg 09/18/24 19:58
Albuterol Nebs 2.5 Mg/3 Ml Ampul INH
R QIDPRN PRN
wheezing
Protocol
Aspirin 81 mg 09/21/24 15:00 09/24/24 09:06
Aspirin 81 Mg (Enteric Coated) Tablet PO 10/19/24 14:59 81 mg
DAILY DIALLO Administration
Budesonide/Formoterol Fumarate 2 puff 09/19/24 08:00 09/24/24 07:53
Symbicort Inhaler 160/4.5 INH 10/17/24 07:59 2 puff
R BID DIALLO Administration
Dexamethasone 4 mg 09/22/24 18:00 09/24/24 09:07
Dexamethasone 4 Mg Tablet PO 10/20/24 17:59 4 mg
DAILY DIALLO Administration
Folic Acid 1 mg 09/19/24 08:00 09/24/24 09:07
Folic Acid 1 Mg Tablet PO 10/17/24 07:59 1 mg
DAILY DIALLO Administration
Heparin Sodium (Porcine) 500 unit 09/20/24 18:00 09/22/24 21:29
Heparin Flush Pf (100 Unit/Ml) 5 Ml Syringe IV 10/18/24 17:59 500 unit
PER PROTOCOL DIALLO Administration
Vancomycin HCl 100 mls @ 100 mls/hr 09/22/24 18:00 09/24/24 06:15
Vancocin Hcl 500 Mg IV 100 mls
Q12H DIALLO Administration
Protocol
Sodium Chloride 1,000 mls @ 80 mls/hr 09/23/24 15:45 09/24/24 05:23
Nss IV 1,000 mls
.[id number] DIALLO Administration
Lactulose 20 grams 09/18/24 22:30
Lactulose Solution (20 Grams/30 Ml) 30 Ml Cup PO 10/16/24 22:29
DAILYPRN PRN
CONSTIPATION
Levetiracetam 750 mg 09/22/24 20:00 09/24/24 09:07
Levetiracetam 500 Mg Regular Release Tablet PO 10/20/24 19:59 750 mg
BID DIALLO Administration
Lidocaine 4 patch 09/23/24 12:09 09/24/24 09:05
Lidocaine 4% Topical Patch TOPICAL 10/17/24 07:59 4 patch
DAILY DIALLO Administration
Lorazepam 1 mg 09/23/24 12:20 09/23/24 22:29
Lorazepam 2 Mg/Ml Vial IV 10/21/24 12:19 1 mg
Q6HPRN PRN Administration
agitation
Metoclopramide HCl 5 mg 09/18/24 19:58 09/24/24 09:07
Metoclopramide 5 Mg Tablet PO 10/16/24 19:57 5 mg
QID DIALLO Administration
Morphine Sulfate 30 mg 09/23/24 20:00 09/24/24 09:06
Morphine 30 Mg Extended Release Tablet PO 10/07/24 19:59 30 mg
BID DIALLO Administration
Naloxegol [Movantik] 0 mg 09/19/24 08:00
25mg Tablet: One PO 10/17/24 07:59
Tablet Po Daily DAILY DIALLO
Nystatin 5 ml 09/21/24 18:00 09/24/24 09:06
Nystatin Oral Suspension 500,000 Units/5 Ml PO 10/19/24 17:59 5 ml
QID DIALLO Administration
Olanzapine 5 mg 09/18/24 19:58
Olanzapine 5 Mg Tablet PO 10/16/24 19:57
HSPRN PRN
nausea/vomiting
Oxycodone HCl 10 mg 09/21/24 15:30 09/22/24 00:40
Oxycodone 10 Mg Regular Release Tablet PO 10/05/24 15:29 10 mg
Q4HPRN PRN Administration
moderate to severe pain
Patch Removal 0 patch 09/19/24 20:00 09/23/24 21:48
Remove Lidocaine Patch REMOVE 10/17/24 19:59 1 patch
DAILY@2000 DIALLO Administration
Pregabalin 75 mg 09/18/24 20:00 09/24/24 09:07
Pregabalin 75 Mg Capsule PO 10/16/24 19:59 75 mg
BID DIALLO Administration
Simethicone 160 mg 09/18/24 19:58
Simethicone 80 Mg Chewable Tablet PO 10/16/24 19:57
QIDPRN PRN
flatulence
Sodium Chloride 0 flush 09/21/24 08:00 09/23/24 12:32
Sodium Chloride 0.9% (Flush) Syringe IV 10/19/24 07:59 1 flush
PER PROTOCOL DIALLO Administration
Sodium Chloride 0.5 ml 09/23/24 12:29
Nss (Pf) 10 Ml Vial For Ativan 1 Mg Dose IV 10/21/24 12:28
Q6H PRN
ATIVAN DILUTION
Solifenacin 5 mg 09/19/24 08:00 09/24/24 09:06
Solifenacin Succinate (Vesicare) 5 Mg Tablet PO 10/17/24 07:59 5 mg
DAILY DIALLO Administration
Triamcinolone Acetonide 0 applic 09/18/24 19:58
Tramcinolone Acetonide 0.1% (Cream) 15 Gram Tube TOPICAL 10/16/24 19:57
BIDPRN PRN
rash/irritation
--- NOTE | 2024-09-24 10:30 | W.PN.ONC2 ---
Today's Communication / Plan
-
May [address] chest, ab, pelvis, MRI spine done here reviewed with Suzie and her daughter at bedside concerning for POD on current therapy. Suzie and daughter would like to further discuss with family before moving forward with
decisions on GOC. Palliative and comfort options outlined. We discussed that current PS would preclude systemic antineoplastic therapy at this point. They would like to meet with hospice to further discuss possibility of this option. - consult
placed.
Impression
Impression
- Sepsis with UTI
- acute on chronic anemia
- chemotherapy induced thrombocytopenia resolved
- leukocytosis
- metastatic lung adenocarcinoma, imaging here compared to pet May 2024 suggests POD
-3.2 mm acute ischemic infarct posterior left parietal lobe
-AMS not improved with treatment of suspected UTI or adjustement narcotic and antiseizure medications
Plan
Plan
# Anemia multifactorial chemotherapy, AOCD
- hgb on presentation 6.3 g/dl with most recent prior on 09/01 of 7.7.
-f/u heme stool
- CBC daily, transfuse for hgb < 7.5 g/dl. s/p 2 unit prbc during hospitalization, last 09/20
# Leukocytosis
-No G-CSf given with chemo 09/03 due to WBC of 27 on day of tx. therefore WBC due to infection vs. malignancy + steroid
- monitor fever curve, WBC trend.
-apprec ID assist
# stage IV NSCLC
- follows with Dr. Rodríguez at [place]
- on carbo/pem/keytruda, s/p C3
- no signs or symptoms to suggest ICI.
- solitary brain foci on MRI in July, not treated due to small size
-CT chest, ab, pelvis and MRI spine show mets to T12, liver, spleen, and adrenal
- defer to primary oncology team for ongoing management.
#acute CVA on asa -neuro following
#on keppra for possible seizure activity
#AMS no improvement with medication adjustments
Subjective/Objective
Subjective
appears comfortable -on tele sitter, hand mittens in place
Vital Signs:
Vital Signs
Temp Pulse Resp BP Pulse Ox
97.9 F 71 16 146/73 96
09/24/24 07:00 09/24/24 07:57 09/24/24 07:57 09/24/24 07:00 09/24/24 07:57
Lab Results:
Laboratory Data
WBC 33.4 10^3/uL (4.8-10.8) H 09/24/24 06:13
Hgb 9.5 g/dL (12.0-16.0) L 09/24/24 06:13
Plt Count 183 10^3/uL (130-400) D 09/24/24 06:13
PT 19.5 Sec (11.4-14.6) H 09/18/24 15:07
INR 1.66 09/18/24 15:07
APTT 39.2 Sec (23.4-35.0) H 09/18/24 15:07
eGFR > 60.00 09/24/24 06:13
Physical Exam
General: lethargic, appears comfortable
HEENT: Negative Jaundice
Cardiology: Normal Sinus Rhythm
Pulmonary: right lung diminished. Left lung clear
GI: Soft
Extremities: no Edema
Neurology: confused, requesting hand mitts to be removed.
Orders
Orders
Orders From Last 24 Hours
09/23/24 11:59
CT Chest With Iv Contrast Routine
[2024-09-24 11:00] VITALS: BP 133/69
[2024-09-24] MEDS: PROTONIX 40 MG PO (12:30)
--- NOTE | 2024-09-24 13:49 | W.PN.ID1 ---
Date of Service
Date of Service: September 24, 2024
Today's Communication
Continue Vanco for today. Await family decision regarding hospice.
Assessment / Plan
Encephalopathy
stage IV NSCLC
Possible UTI due to Aerococcus
- 09/18 UA with mild pyuria, urine culture 100K aerococcus, symptoms were reported on arrival
- note that repeat UA 09/22 no pyuria - did not reflex to culture
- continue vancomycin pending family decision regarding hospice.
Leukocytosis
- cbc with diff does show L shift, no eosinophilia
- oncology comments no GCSF for at least 3 weeks
Chief Complaint
-: UTI and Other (AMS)
Subjective / Review of Systems
Review of Systems: No Fever
Vital Signs / Physical Exam
Vital Signs
Vital Signs
Temp Pulse Resp BP Pulse Ox
98.6 F 99 16 133/69 99
09/24/24 11:00 09/24/24 11:00 09/24/24 11:00 09/24/24 11:00 09/24/24 11:00
Physical Exam
Constitutional: No Acute Distress and Comfortable
Pulmonary: Non Labored
Gastrointestinal: Non Distended
Psychological: Calm
Objective Data
Lab Data
Lab Results
09/24/24 06:13
09/24/24 06:13
PT 19.5 Sec (11.4-14.6) H 09/18/24 15:07
INR 1.66 09/18/24 15:07
APTT 39.2 Sec (23.4-35.0) H 09/18/24 15:07
Estimated Creat Clear 71 ml/min 09/24/24 06:13
Lactic Acid 0.7 mmol/L (0.7-2.0) 09/18/24 18:05
Total Bilirubin 0.7 mg/dl (0.2-1.3) 09/23/24 03:55
AST 16 U/L (14-36) 09/23/24 03:55
ALT 12 U/L (0-35) 09/23/24 03:55
Alkaline Phosphatase 153 U/L (38-126) H 09/23/24 03:55
Most recent labs reviewed.
Micro Results:
09/18/24 15:33 Blood Culture - Final
Blood/Venous No Growth - Final Report
09/18/24 15:33 Blood Culture - Final
Blood/Venous No Growth - Final Report
09/22/24 13:53 Blood Culture - Preliminary
Blood/Venous No Growth in 24 hours- Final report to follow
09/21/24 14:08 MRSA Screen - Final
Nose No Methicillin Resistant Staphylococcus aureus isolated.
09/18/24 14:10 Urine Culture - Final
Urine Aerococcus Species
09/18/24 15:07 Influenza Types A & B ([facility]) - Final
Nasal Swab Negative for Influenza A & B, NAAT
Negative results must be combined with clinical observations
and patient history.
Nucleic Acid Amplification test (NAAT)performed on the
[employer] platform.
[2024-09-24 15:00] VITALS: BP 110/59
--- NOTE | 2024-09-24 15:08 | HOSPNOTE ---
Met with family at length. Discussed hospice and the philosophy family is in agreement with hospice and the plan is equipment will be ordered on Friday and will be delivered Friday morning and transport will be needed around 12 noon. OOH DNR will be
needed on chart. Attending aware and in agreement and code status is changed to a DNR. CM aware of plan.
--- NOTE | 2024-09-24 15:25 | CM ---
Received referral for Hospice. Spoke with Madisyn Wise. Family wants [facility]. Will send referral.
Plan: Case management will continue to follow and assist with discharge planning. Home with hospice.
[2024-09-24] MEDS: REGLAN PO (18:13)
[2024-09-24] MEDS: MYCOSTATIN ORAL SUSPENSION PO ×2 (18:13→21:03)
[2024-09-24 19:05] VITALS: BP 121/64
[2024-09-24 23:05] VITALS: BP 140/79
[2024-09-25] MEDS: VANCOCIN HCL 500 MG 100 IV ×2 (05:51→17:43)
[2024-09-25] MEDS: NSS 1000 IV (05:51)
[2024-09-25 06:47] LABS: Hematocrit 29.1 % (37.0-47.0); Hemoglobin 9.3 g/dL (12.0-16.0); Mean Corpuscular Hgb 29.1 pg (27.0-31.0); Mean Corpuscular Volume 90.9 fL (81.0-99.0); Mean Platelet Volume 10.7 fL (7.4-10.4); Platelet Count 208 10^3/uL (130-400); Red Cell Dist. Width 18.7 % (11.5-14.5); White Blood Cell Count 32.3 10^3/uL (4.8-10.8)
[2024-09-25 06:51] LABS: Blood Urea Nitrogen 8 mg/dl (7-17); Carbon Dioxide 23 mmol/L (22-30); Chloride 102 mmol/L (98-107); Estimated Creatinine Clearance 71 ml/min; Glucose 102 mg/dl (70-99); Potassium 3.2 mmol/L (3.5-5.1); Sodium 136 mmol/L (135-145); eGFR > 60.00
[2024-09-25] MEDS: SYMBICORT 160/4.5 MCG INHALER 2 PUFF INH ×2 (07:25→20:11)
[2024-09-25 08:20] VITALS: BP 99/61
[2024-09-25] MEDS: REGLAN PO ×3 (09:16→17:43)
[2024-09-25] MEDS: DECADRON 4 MG PO ×2 (09:16→20:55)
[2024-09-25] MEDS: MS CONTIN (EXTENDED RELEASE) 30 MG PO (09:16)
[2024-09-25] MEDS: ASPIR LOW (ENTERIC COATED) 81 MG PO (09:17)
[2024-09-25] MEDS: KEPPRA 750 MG PO ×2 (09:17→20:54)
[2024-09-25] MEDS: FOLVITE 1 MG PO (09:17)
[2024-09-25] MEDS: VESICARE 5 MG PO (09:17)
[2024-09-25] MEDS: LYRICA 75 MG PO ×2 (09:18→20:55)
[2024-09-25] MEDS: PROTONIX IV 40 MG IV (09:19)
[2024-09-25] MEDS: NSS (PRESERVATIVE FREE) 10 ML IV (09:19)
[2024-09-25] MEDS: MYCOSTATIN ORAL SUSPENSION 5 ML PO (09:19)
[2024-09-25] MEDS: LIDOCAINE 4% PATCH 4 PATCH TOPICAL (09:21)
[2024-09-25] MEDS: MORPHINE SULFATE 2 MG IV ×2 (09:22→16:41)
[2024-09-25 11:56] VITALS: BP 127/69
--- NOTE | 2024-09-25 11:58 | W.PN.HOSP.TC ---
Today's Communication/Plan
-
plan for hospice Friday
dc unnecessary orders/meds, focus on comfort
Assessment / Plan
Assessment / Plan
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 Aerococcus positive. ID on board with vancomycin. Increased confusion. Spoke to
care nurse at [place] today. Patient previously stage IIIb however was due for PET scan for restaging this Friday. Now likely stage IV. Dinorah Powell care nurse # [phone]. Spoke to patient's POA Sister about reevaluation of full code
status. She will discuss with patients niece who also has POA. Discussed with hospice nurse. Plans to transfer to hospice on friday.
# Metabolic encephalopathy 2/2 septic shock 2/2 likely urinary tract infection
-Sepsis with WBC increasing
-Off levophed
-dc cefapime dc amox Continue vanco day 2
-WBC trending up today 33
-Continue fluids
-ID appreciated
-telemetry as BP stable but with tachy
-Tylenol as needed for fever
-Continue fluids and antibiotics until pt moves to hospice
# Generalized weakness/confusion/change in speech
UTI/anemia vs metastasis vs seizure vs stroke vs med side effect (keppra, cefepime?)
-Urgent non-contrast CT no acute findings
-continue lower dose keppra
-Spine MRI and Chest CT 09/23 confirmed Stage 4 with mets to right thoracic outlet, chest wall, liver, adrenal glands, and spleen. T12 osseous metastatic disease and left lateral ninth rib metastatic disease,a significant portion of the sacrum,
-Brain Right frontal bone and left parietal metastatic lesions
-Hold off on LP/continuous EEG as patient plans to move to hospice
-resume home dose pain meds as pain intolerable
-U/A no infection, B12, folate wnl, chest x-ray no signs of infx
-Dexa 4mg qd -> BID for suspected intracranial edema 2/2 brain mets
-ID on board
-Patient plans to move to hospice on friday
#Dysphagia
Speech eval
Soft and bite-size diet
#Hypotension
Was on levophed weaned off
resolved
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
-Opioid use with dependence
- taking morphine 30mg PO BID and oxy 10 prn at home
-Comfort care morphine protocol ordered for patient as she has been refusing oral meds
-Lidocaine patch for back pain
# Anemia of chronic disease
-Has required 2 units of blood
-Hemoccult stool (-)
-Currently stable at 9.5
-Heme-onc believes chemotherapy induced anemia with an inflammatory component
#thrombocytopenia
-Monitor
#acute CVA
- MRI 09/20-
1. TINY 3.2 mm ACUTE ISCHEMIC INFARCT in the posterior LEFT PARIETAL LOBE JAQUEZ RADIATA.
2. 1.2 cm OSSEOUS METASTASIS in the RIGHT FRONTAL BONE
-EEG abnormal although not clearly epileptiform
-Keppra per neuro
-ASA 81
- carotid US left < 50%, right 50-69%
-No Statin LDL 50 at goal (<70)
-Stroke order set
-Continue asa and keppra until move to hospice
# [facility] Metastatic cancer to bone and brain
-Follows onc at [place]
-Her last IV chemo was September 03, next due in 3 weeks oncology
-Due to PET for re-staging 09/24
-Stage 4 with mets to right thoracic outlet, chest wall, liver, adrenal glands, and spleen. T12 osseous metastatic disease and left lateral ninth rib metastatic disease,a significant portion of the sacrum,
-Brain Right frontal bone and left parietal metastatic lesions.
-Lidocaine patch, morphine, Reglan, olanzapine, oxycodone, Lyrica continued
-Plans to move to hospice on friday
#Oral candidiasis
-White patchy lesions on tongue
-Nystatin suspension
-Continue until transfer to hospice
# Chronic hyponatremia likely from metastatic disease
-Sodium 136 today
-daily bmp
#Elevated TSH
Subclinical hypothyroidism
re-evaluate in OP if pt does not move to hospice
#Hypokalemia
-resolved
-replace as needed
# Tachycardia likely from anemia/UTI
-EKG with sinus tachycardia
-monitor on tele
# History of asthma
- nebs from home as needed
# Overactive bladder/urinary retention
-Solifenacin continue
-straight cath protocol for retention
# Essential hypertension
-spironolactone held until BP stabilizes
# DVT prophylaxis
-SCD
# CODE STATUS-full code
Anticipated Discharge: > 48 hours
Subjective/Interval History
-
Date of Service: September 25, 2024
reports pain is controlled
no other complaints
Objective Data
-
Labs:
Laboratory Results
09/25/24
05:45
WBC 32.3 H
Hgb 9.3 L
Hct 29.1 L
Plt Count 208
Sodium 136
Potassium 3.2 L
Chloride 102
Carbon Dioxide 23
BUN 8
Creatinine 0.4 L
Glucose 102 H
Calcium 9.0
Vital Signs:
Vital Signs
Temp Pulse Resp BP Pulse Ox
97.5 F 74 18 99/61 91
09/25/24 08:20 09/25/24 08:20 09/25/24 08:20 09/25/24 08:20 09/25/24 08:20
I&O
09/24/24 09/25/24 09/26/24
06:59 06:59 06:59
Intake Total 360 / 360 1300 / 1300
Output Total 475 / 475 1575 / 1575
Balance -115 / -115 -275 / -275
Physical Exam
-
General: No Apparent Distress and Appears Chronically Ill
HEENT: Normocephalic
Respiratory: Negative Wheezes
Cardiac: Regular Rhythm
GI: Soft
Neuro: AO x 3
Psych: Calm
Data Reviewed
-
Total Time Spent with Patient (in minutes): 41
Labs: Labs Reviewed by me
[2024-09-25] MEDS: MYCOSTATIN ORAL SUSPENSION PO ×3 (12:20→20:54)
[2024-09-25] MEDS: FLUSH (NSS) 1 FLUSH IV (12:25)
[2024-09-25] MEDS: REGLAN 5 MG PO ×2 (14:00→20:55)
--- NOTE | 2024-09-25 14:41 | PHA.VAN.FU ---
Vancomycin Assessment / Plan
- Assessment
Renal Function: Stable (0.4>0.4)
WBC's are: Trending Down (33.4>32.3)
In the past 24 hrs, patient has been: Afebrile
- Dosing Plan
Continue: Vancomycin 500mg IV Q12hrs
- Monitoring Plan
No level(s) ordered at this time: Will order levels if plan is to remain on IV vancomycin.
- Follow Up
Pharmacy will continue to follow.
Vancomycin Follow UP
- -
Patient Age: 63
Patient Sex: Female
Vancomycin Day #: 4
Indication: Genito-Urinary Tract
Requesting Provider: Dr. Ward
Pertinent Antimicrobial Allergies:
no pertinent antibiotic allergies
Height / Weight:
Height 5 ft 1 in
Actual Weight 50.1 kg
Pertinent Past Medical History: stage IV NSCLC
- Vital Signs / Lab Results
Temp Pulse Resp BP Pulse Ox
98.4 F 95 19 127/69 97
09/25/24 11:56 09/25/24 11:56 09/25/24 11:56 09/25/24 11:56 09/25/24 11:56
Lab Results - Hematology
09/23/24 09/24/24 09/25/24
03:55 06:13 05:45
WBC 25.4 H 33.4 H 32.3 H
Lab Results - Chemistry
09/23/24 09/24/24 09/25/24
03:55 06:13 05:45
BUN 11 10 8
Creatinine 0.4 L 0.4 L 0.4 L
Estimated Creat Clear 71 71 71
Albumin 2.3 L
Microbiology Results
09/22/24 13:53 Blood Culture - Preliminary
Blood/Venous No Growth in 72 hours- Final report to follow
09/18/24 15:33 Blood Culture - Final
Blood/Venous No Growth - Final Report
09/18/24 15:33 Blood Culture - Final
Blood/Venous No Growth - Final Report
--- NOTE | 2024-09-25 15:41 | PTCARENOTE ---
at 09, patient transferred oob to chair with mod assist x2 and attempted repositioning and medicated with PRN Morphine (see MAR) for c/o 09/09 low back pain with good relief. left mitt trialed off and has not had need for continued restraint.
poor PO intake, po's encouraged, cachectic. not able to take Nystatin, vss, will continue to monitor.
[2024-09-25 16:05] VITALS: BP 132/78
[2024-09-25] MEDS: FLUSH (NSS) 2 FLUSH IV (16:42)
[2024-09-25 23:37] VITALS: BP 139/77
[2024-09-26] MEDS: VANCOCIN HCL 500 MG 100 IV ×2 (05:43→18:38)
[2024-09-26] MEDS: MORPHINE SULFATE 2 MG IV ×4 (05:55→11:55)
[2024-09-26 07:34] VITALS: BP 140/81
[2024-09-26] MEDS: LIDOCAINE 4% PATCH 4 PATCH TOPICAL (07:37)
[2024-09-26] MEDS: KEPPRA 750 MG PO ×2 (07:38→21:22)
[2024-09-26] MEDS: LYRICA 75 MG PO ×2 (07:38→21:22)
[2024-09-26] MEDS: VESICARE 5 MG PO (07:38)
[2024-09-26] MEDS: MYCOSTATIN ORAL SUSPENSION 5 ML PO ×2 (07:39→18:38)
[2024-09-26] MEDS: PROTONIX IV 40 MG IV (07:40)
[2024-09-26] MEDS: REGLAN 5 MG PO ×3 (07:40→21:21)
[2024-09-26] MEDS: DECADRON 4 MG PO ×2 (07:40→21:21)
[2024-09-26] MEDS: NSS (PRESERVATIVE FREE) 10 ML IV (07:41)
[2024-09-26] MEDS: SYMBICORT 160/4.5 MCG INHALER 2 PUFF INH (07:48)
--- NOTE | 2024-09-26 10:13 | W.PN.HOSP.TC ---
Today's Communication/Plan
-
ongoing arrangements towards planned home hospice DC Friday. Maximize comfort.
Assessment / Plan
Assessment / Plan
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 Aerococcus positive. ID on board with vancomycin. Increased confusion. Spoke to
care nurse at [facility] today. Patient previously stage IIIb however was due for PET scan for restaging this Friday. Now likely stage IV. Dinorah Powell care nurse # [phone]. Spoke to patient's POA Sister about reevaluation of full code
status. She will discuss with patients niece who also has POA. Discussed with hospice nurse. Plans to transfer to hospice on friday.
# Metabolic encephalopathy 2/2 septic shock 2/2 likely urinary tract infection
-Sepsis with WBC increasing
-Off levophed
-dc cefapime dc amox Continue vanco day 2
-WBC trending up today 33
-Continue fluids
-ID appreciated
-telemetry as BP stable but with tachy
-Tylenol as needed for fever
-Continue fluids and antibiotics until pt moves to hospice
# Generalized weakness/confusion/change in speech
UTI/anemia vs metastasis vs seizure vs stroke vs med side effect (keppra, cefepime?)
-Urgent non-contrast CT no acute findings
-continue lower dose keppra
-Spine MRI and Chest CT 09/23 confirmed Stage 4 with mets to right thoracic outlet, chest wall, liver, adrenal glands, and spleen. T12 osseous metastatic disease and left lateral ninth rib metastatic disease,a significant portion of the sacrum,
-Brain Right frontal bone and left parietal metastatic lesions
-Hold off on LP/continuous EEG as patient plans to move to hospice
-resume home dose pain meds as pain intolerable
-U/A no infection, B12, folate wnl, chest x-ray no signs of infx
-Dexa 4mg qd -> BID for suspected intracranial edema 2/2 brain mets
-ID on board
-Patient plans to move to hospice on friday
#Dysphagia
Speech eval
Soft and bite-size diet
#Hypotension
Was on levophed weaned off
resolved
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
-Opioid use with dependence
- taking morphine 30mg PO BID and oxy 10 prn at home
-Comfort care morphine protocol ordered for patient as she has been refusing oral meds
-Lidocaine patch for back pain
# Anemia of chronic disease
-Has required 2 units of blood
-Hemoccult stool (-)
-Currently stable at 9.5
-Heme-onc believes chemotherapy induced anemia with an inflammatory component
#thrombocytopenia
-Monitor
#acute CVA
- MRI 09/20-
1. TINY 3.2 mm ACUTE ISCHEMIC INFARCT in the posterior LEFT PARIETAL LOBE JAQUEZ RADIATA.
2. 1.2 cm OSSEOUS METASTASIS in the RIGHT FRONTAL BONE
-EEG abnormal although not clearly epileptiform
-Keppra per neuro
-ASA 81
- carotid US left < 50%, right 50-69%
-No Statin LDL 50 at goal (<70)
-Stroke order set
-Continue asa and keppra until move to hospice
# [facility] Metastatic cancer to bone and brain
-Follows onc at [facility]
-Her last IV chemo was September 03, next due in 3 weeks oncology
-Due to PET for re-staging 09/24
-Stage 4 with mets to right thoracic outlet, chest wall, liver, adrenal glands, and spleen. T12 osseous metastatic disease and left lateral ninth rib metastatic disease,a significant portion of the sacrum,
-Brain Right frontal bone and left parietal metastatic lesions.
-Lidocaine patch, morphine, Reglan, olanzapine, oxycodone, Lyrica continued
-Plans to move to hospice on friday
#Oral candidiasis
-White patchy lesions on tongue
-Nystatin suspension
-Continue until transfer to hospice
# Chronic hyponatremia likely from metastatic disease
-Sodium 136 today
-daily bmp
#Elevated TSH
Subclinical hypothyroidism
re-evaluate in OP if pt does not move to hospice
#Hypokalemia
-resolved
-replace as needed
# Tachycardia likely from anemia/UTI
-EKG with sinus tachycardia
-monitor on tele
# History of asthma
- nebs from home as needed
# Overactive bladder/urinary retention
-Solifenacin continue
-straight cath protocol for retention
# Essential hypertension
-spironolactone held until BP stabilizes
# DVT prophylaxis
-SCD
# CODE STATUS-full code
Anticipated Discharge: Within 24 hours
Subjective/Interval History
-
Date of Service: September 26, 2024
pain controlled
no new complaints
Objective Data
-
Vital Signs:
Vital Signs
Temp Pulse Resp BP Pulse Ox
97.4 F 94 16 140/81 96
09/26/24 07:34 09/26/24 07:52 09/26/24 07:52 09/26/24 07:34 09/26/24 07:52
I&O
09/25/24 09/26/24 09/27/24
06:59 06:59 06:59
Intake Total 1300 / 1300 1010 / 1010
Output Total 1575 / 1575 1200 / 1200
Balance -275 / -275 -190 / -190
Physical Exam
-
General: No Apparent Distress and Appears Chronically Ill
HEENT: Normocephalic and Atraumatic
Cardiac: Regular Rhythm
GI: Soft
Neuro: AO x 3
Psych: Calm
Data Reviewed
-
Total Time Spent with Patient (in minutes): 41
[2024-09-26] MEDS: ROXICODONE 10 MG PO ×2 (10:22→15:17)
[2024-09-26] MEDS: REGLAN PO (13:12)
--- NOTE | 2024-09-26 13:23 | PHA.VAN.FU ---
Vancomycin Assessment / Plan
- Assessment
Renal Function: No New Labs Today
In the past 24 hrs, patient has been: Afebrile
- Dosing Plan
Continue: Vancomycin 500mg IV Q12hrs
- Monitoring Plan
No level(s) ordered at this time: Plan for hospice care tomorrow. Will hold off ordering levels.
- Follow Up
Pharmacy will continue to follow.
Vancomycin Follow UP
- -
Patient Age: 63
Patient Sex: Female
Vancomycin Day #: 5
Indication: Genito-Urinary Tract
Requesting Provider: Dr. Ward
Pertinent Antimicrobial Allergies:
no pertinent antibiotic allergies
Height / Weight:
Height 5 ft 1 in
Actual Weight 50.1 kg
Pertinent Past Medical History: stage IV NSCLC
- Vital Signs / Lab Results
Temp Pulse Resp BP Pulse Ox
97.4 F 94 16 140/81 96
09/26/24 07:34 09/26/24 07:52 09/26/24 07:52 09/26/24 07:34 09/26/24 07:52
Lab Results - Hematology
09/24/24 09/25/24
06:13 05:45
WBC 33.4 H 32.3 H
Lab Results - Chemistry
09/24/24 09/25/24
06:13 05:45
BUN 10 8
Creatinine 0.4 L 0.4 L
Estimated Creat Clear 71 71
Microbiology Results
09/22/24 13:53 Blood Culture - Preliminary
Blood/Venous No Growth in 72 hours- Final report to follow
[2024-09-26] MEDS: MYCOSTATIN ORAL SUSPENSION PO ×2 (14:52→21:21)
[2024-09-26 15:30] VITALS: BP 131/71
[2024-09-26] MEDS: ATIVAN 1 MG IV (18:30)
[2024-09-26] MEDS: SYMBICORT 160/4.5 MCG INHALER INH ×2 (19:43→19:45)
[2024-09-26 23:02] VITALS: BP 156/86
[2024-09-27] MEDS: VANCOCIN HCL 500 MG 100 IV (05:11)
[2024-09-27 07:23] VITALS: BP 160/90
[2024-09-27] MEDS: SYMBICORT 160/4.5 MCG INHALER 2 PUFF INH (07:32)
[2024-09-27 08:23] LABS: Hematocrit 31.2 % (37.0-47.0); Hemoglobin 10.2 g/dL (12.0-16.0); Mean Corp Hgb Conc. 32.7 g/dL (33.0-37.0); Mean Corpuscular Hgb 28.6 pg (27.0-31.0); Mean Corpuscular Volume 87.4 fL (81.0-99.0); Mean Platelet Volume 9.7 fL (7.4-10.4); Platelet Count 256 10^3/uL (130-400); Red Blood Cell Count 3.57 10^6/uL (4.20-5.40); Red Cell Dist. Width 18.8 % (11.5-14.5); White Blood Cell Count 40.7 10^3/uL (4.8-10.8)
[2024-09-27 08:29] LABS: ALT (SGPT) 11 U/L (0-35); AST (SGOT) 16 U/L (14-36); Albumin 2.5 g/dl (3.5-5.0); Alkaline Phosphatase 183 U/L (38-126); Blood Urea Nitrogen 6 mg/dl (7-17); Calcium 9.2 mg/dl (8.4-10.2); Carbon Dioxide 31 mmol/L (22-30); Chloride 93 mmol/L (98-107); Estimated Creatinine Clearance 71 ml/min; Glucose 99 mg/dl (70-99); Sodium 132 mmol/L (135-145); Total Bilirubin 0.9 mg/dl (0.2-1.3); eGFR > 60.00
[2024-09-27] MEDS: LYRICA 75 MG PO (08:41)
[2024-09-27] MEDS: VESICARE 5 MG PO (08:41)
[2024-09-27] MEDS: REGLAN 5 MG PO (08:41)
[2024-09-27] MEDS: PROTONIX IV 40 MG IV (08:42)
[2024-09-27] MEDS: KEPPRA 750 MG PO (08:42)
[2024-09-27] MEDS: NSS (PRESERVATIVE FREE) 10 ML IV (08:42)
[2024-09-27] MEDS: DECADRON 4 MG PO (08:42)
[2024-09-27] MEDS: LIDOCAINE 4% PATCH TOPICAL (08:59)
[2024-09-27] MEDS: MYCOSTATIN ORAL SUSPENSION PO ×3 (08:59→17:24)
--- NOTE | 2024-09-27 10:26 | W.PN.HOSP.TC ---
Addendum entered and electronically signed by Amadeo Rivera MD 09/27/24 23:35:
Attending Addendum-
I saw and evaluated the patient. I reviewed the resident�s note and agree with findings and plan as documented in the resident�s note. Sub: appears sedated, arousable. no complaints. 'im ready to go home' seen with family present. Full 12 point ROS
reviewed and negative except as documented- limited by MS Exam: Vitals reviewed in chart GEN-NAD heart RRR lungs clear NO BS right , Left CTA abd soft NT chest lump present Left upper port in place Neuro AAOx1
# Septic shock secondary to urinary tract infection
- resolved
- off Levophed
- Blood culture-NGTD
- Ur Cx-Aerococcus
- dc abx
# CIMS/Acute Delirium/Seizure
- poor prog
- 09/23-MRI spine-Metastatic infiltration of T12 and throughout a significant portion of the sacrum with bulky disease in these regions as described. No convincing intradural/intramedullary disease.
- 09/23-CT chest-Metastatic disease involving right thoracic outlet, chest wall, liver, adrenal glands, and spleen. T12 osseous metastatic disease and left lateral ninth rib metastatic disease.
- GOC discussion with sister- DC home on hospice
# Dysphagia
- mech alter diet
# Thrush
- cont nystatin s/s
# Leukocytosis
- worsening
- stop all blood draws
# Acute CVA
- MRI 09/20-
1. TINY 3.2 mm ACUTE ISCHEMIC INFARCT in the posterior LEFT PARIETAL LOBE JAQUEZ RADIATA.
2. 1.2 cm OSSEOUS METASTASIS in the RIGHT FRONTAL BONE
- neuro c/s appreciated
- cont asa
- CD- left < 50%, right 50-69%
# Seizure-NEW
- cont keppra per neuro
# Hypotension
- resolved
- was on Levophed-weaned off
- hold spironolactone
- cont tele
# Cancer/Mets induced Bone Pain Chronic Opioid use with dependence
- pain control
- poor prog
- t/c pall rads
- increase back to morphine 30mg PO BID and oxy 10 prn - home dose
- increase dexamethasone
- DC home on hospice
# NSCLC stage IV met to bone/brain
- worsened met disease
- poor prognosis
- GOC discussion-> Hospice
- Follows onc at [facility]
- appreciate onc input
- cont decadron and pain control
# Chronic hyponatremia likely from metastatic disease
- resolved
# Overactive bladder
-Solifenacin continued
# Essential hypertension
-spironolactone held
# asthma
- cont inhalers/nebs
Dispo DC home on hospice
CODE- FULL-->DNR/DNI d/w sister 09/24
Time spent coordinating care, DC planning, review of DC plan of care with resident, transition of care, review of records, med rec/scripts sent electronically, consults, notes, d/w consultants, nursing, family, and CM� 38 mins
Original Note:
Today's Communication/Plan
-
Discharge on home hospice
Assessment / Plan
Assessment / Plan
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 Aerococcus positive. ID on board with vancomycin. Increased confusion. Spoke to
care nurse at [facility] today. Patient previously stage IIIb however was due for PET scan for restaging this Friday. Now likely stage IV. Dinorah Marmolejo care nurse # [phone]. Spoke to patient's POA Sister about reevaluation of full code
status. She will discuss with patients niece who also has POA. Discussed with hospice nurse. Plans to transfer to hospice on friday.
# Metabolic encephalopathy 2/2 septic shock 2/2 likely urinary tract infection
-Sepsis with WBC increasing
-Off levophed
-dc cefapime dc amox Continue vanco day 4
-WBC trending up today 40.7
-ID appreciated
-Tylenol as needed for fever
-d/c all care as pt plans to go home today on hospice
# Generalized weakness/confusion/change in speech
UTI/anemia vs metastasis vs seizure vs stroke vs med side effect (keppra, cefepime?)
-Urgent non-contrast CT no acute findings
-continue lower dose keppra
-Spine MRI and Chest CT 09/23 confirmed Stage 4 with mets to right thoracic outlet, chest wall, liver, adrenal glands, and spleen. T12 osseous metastatic disease and left lateral ninth rib metastatic disease,a significant portion of the sacrum,
-Brain Right frontal bone and left parietal metastatic lesions
-Hold off on LP/continuous EEG as patient plans to move to hospice
-resume home dose pain meds as pain intolerable
-U/A no infection, B12, folate wnl, chest x-ray no signs of infx
-Dexa 4mg qd -> BID for suspected intracranial edema 2/2 brain mets
-ID on board
-Patient plans to d/c today on hospice
#Dysphagia
Speech eval
Soft and bite-size diet
#Hypotension
Was on levophed weaned off
resolved
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
-Opioid use with dependence
- taking morphine 30mg PO BID and oxy 10 prn at home
-Comfort care morphine protocol ordered for patient as she has been refusing oral meds
-Lidocaine patch for back pain
# Anemia of chronic disease
-Has required 2 units of blood
-Hemoccult stool (-)
-Currently stable at 9.5
-Heme-onc believes chemotherapy induced anemia with an inflammatory component
#thrombocytopenia
-Monitor
#acute CVA
- MRI 09/20-
1. TINY 3.2 mm ACUTE ISCHEMIC INFARCT in the posterior LEFT PARIETAL LOBE JAQUEZ RADIATA.
2. 1.2 cm OSSEOUS METASTASIS in the RIGHT FRONTAL BONE
-EEG abnormal although not clearly epileptiform
-Keppra per neuro
-ASA 81
- carotid US left < 50%, right 50-69%
-No Statin LDL 50 at goal (<70)
-Stroke order set
-Continue asa and keppra until move to hospice
# [facility] Metastatic cancer to bone and brain
-Follows onc at [facility]
-Her last IV chemo was September 03, next due in 3 weeks oncology
-Due to PET for re-staging 09/24
-Stage 4 with mets to right thoracic outlet, chest wall, liver, adrenal glands, and spleen. T12 osseous metastatic disease and left lateral ninth rib metastatic disease,a significant portion of the sacrum,
-Brain Right frontal bone and left parietal metastatic lesions.
-Lidocaine patch, morphine, Reglan, olanzapine, oxycodone, Lyrica continued
-Plans to move to hospice on friday
#Oral candidiasis
-White patchy lesions on tongue
-Nystatin suspension
-Continue
- transfer to home hospice
# Chronic hyponatremia likely from metastatic disease
-Sodium 136 today
-daily bmp
#Elevated TSH
Subclinical hypothyroidism
re-evaluate in OP if pt does not move to hospice
#Hypokalemia
-resolved
-replace as needed
# Tachycardia likely from anemia/UTI
-EKG with sinus tachycardia
-monitor on tele
# History of asthma
- nebs from home as needed
# Overactive bladder/urinary retention
-Solifenacin continue
-straight cath protocol for retention
# Essential hypertension
-spironolactone held until BP stabilizes
# DVT prophylaxis
-SCD
# CODE STATUS-full code
Anticipated Discharge: Today
Subjective/Interval History
-
Date of Service: September 27, 2024
Objective Data
-
Labs:
Laboratory Results
09/27/24
07:49
WBC 40.7 H*
Hgb 10.2 L
Hct 31.2 L
Plt Count 256 D
Sodium 132 L
Potassium 3.0 L
Chloride 93 L
Carbon Dioxide 31 H
BUN 6 L
Creatinine 0.4 L
Glucose 99
Calcium 9.2
Total Bilirubin 0.9
AST 16
ALT 11
Alkaline Phosphatase 183 H
Vital Signs:
Vital Signs
Temp Pulse Resp BP Pulse Ox
97.7 F 90 16 160/90 95
09/27/24 07:23 09/27/24 07:34 09/27/24 07:34 09/27/24 07:23 09/27/24 07:34
I&O
09/26/24 09/27/24 09/28/24
06:59 06:59 06:59
Intake Total 1010 / 1010 660 / 660
Output Total 1200 / 1200 1225 / 1225
Balance -190 / -190 -565 / -565
Review of Systems
-
History Source: Patient
Respiratory: Reports No Symptoms
Cardiac: Reports No Symptoms
Abdomen/GI: Reports No Symptoms
Neuro: Reports No Symptoms
Physical Exam
-
General: No Apparent Distress and Appears Chronically Ill
Respiratory: Clear to Auscultation
Cardiac: Regular Rhythm and S1/S2
GI: Soft and Nontender
Musculoskeletal: No Edema
Neuro: Awake; Negative Alert or Oriented
Psych: Calm
[2024-09-27] MEDS: KCL 270 MEQ IV (10:55)
--- NOTE | 2024-09-27 11:26 | CM ---
Addendum entered by DARLYN Park 09/27/24 14:31:
Stretcher transport set up for patient for 15:30.
Attending working on d/c.
Addendum entered by DARLYN Park 09/27/24 14:12:
Attending stated that patient is medically stable for discharge. Placed a call to patient's sister, Suzie, who stated that patient will be going to [facility] [place] [id number]
Medical necessity and transfer sheet completed and provided to [employer] diet[facility].
IMM reviewed with sister.
On chart.
Original Note:
Received message from Madisyn at Hospice who stated that hospice is ready to admit patient at home. Awaiting medical clearance. Family updated.
Plan: Case management will continue to follow and assist with discharge planning. Home on hospice.
[2024-09-27] MEDS: REGLAN PO ×2 (12:52→17:24)
--- NOTE | 2024-09-27 14:18 | W.PN.ID1 ---
Date of Service
Date of Service: September 27, 2024
Today's Communication
continue vancomycin while in house, stop when discharged to hospice
Assessment / Plan
Encephalopathy
stage IV NSCLC
Possible UTI due to Aerococcus
- 09/18 UA with mild pyuria, urine culture 100K aerococcus, symptoms were reported on arrival
- note that repeat UA 09/22 no pyuria - did not reflex to culture
- continue vancomycin pending family decision regarding hospice.
Leukocytosis
- cbc with diff does show L shift,
- oncology comments no GCSF for at least 3 weeks
Chief Complaint
-: UTI and Other (AMS)
Subjective / Review of Systems
afebrile
going home on hospice, family asking about dc
Vital Signs / Physical Exam
Vital Signs
Vital Signs
Temp Pulse Resp BP Pulse Ox
97.7 F 90 16 160/90 95
09/27/24 07:23 09/27/24 07:34 09/27/24 07:34 09/27/24 07:23 09/27/24 07:34
Physical Exam
Constitutional: Comfortable
Cardiovascular: Regular Rate
Pulmonary: Symmetric and Non Labored
Gastrointestinal: Soft and Non Tender
Skin: Warm and Dry
Objective Data
Lab Data
Lab Results
09/27/24 07:49
09/27/24 07:49
PT 19.5 Sec (11.4-14.6) H 09/18/24 15:07
INR 1.66 09/18/24 15:07
APTT 39.2 Sec (23.4-35.0) H 09/18/24 15:07
Estimated Creat Clear 71 ml/min 09/27/24 07:49
Lactic Acid 0.7 mmol/L (0.7-2.0) 09/18/24 18:05
Total Bilirubin 0.9 mg/dl (0.2-1.3) 09/27/24 07:49
AST 16 U/L (14-36) 09/27/24 07:49
ALT 11 U/L (0-35) 09/27/24 07:49
Alkaline Phosphatase 183 U/L (38-126) H 09/27/24 07:49
Most recent labs reviewed.
Micro Results:
09/22/24 13:53 Blood Culture - Preliminary
Blood/Venous No Growth in 4 days- Final report to follow
09/18/24 15:33 Blood Culture - Final
Blood/Venous No Growth - Final Report
09/18/24 15:33 Blood Culture - Final
Blood/Venous No Growth - Final Report
09/21/24 14:08 MRSA Screen - Final
Nose No Methicillin Resistant Staphylococcus aureus isolated.
09/18/24 14:10 Urine Culture - Final
Urine Aerococcus Species
09/18/24 15:07 Influenza Types A & B ([facility]) - Final
Nasal Swab Negative for Influenza A & B, NAAT
Negative results must be combined with clinical observations
and patient history.
Nucleic Acid Amplification test (NAAT)performed on the
[employer] platform.
--- NOTE | 2024-09-27 15:14 | PHA.VAN.FU ---
Vancomycin Assessment / Plan
- Assessment
Renal Function: Stable
- Dosing Plan
Continue: Vanc 500mg Q12H
- Monitoring Plan
No level(s) ordered at this time: plan to discharge home to hospice today
- Follow Up
Pharmacy will continue to follow.
Vancomycin Follow UP
- -
Patient Age: 63
Patient Sex: Female
Vancomycin Day #: 6
Indication: Genito-Urinary Tract
Requesting Provider: Dr. Ward
Pertinent Antimicrobial Allergies:
no pertinent antibiotic allergies
Height / Weight:
Height 5 ft 1 in
Actual Weight 50.1 kg
Pertinent Past Medical History: stage IV NSCLC
- Vital Signs / Lab Results
Temp Pulse Resp BP Pulse Ox
97.7 F 90 16 160/90 95
09/27/24 07:23 09/27/24 07:34 09/27/24 07:34 09/27/24 07:23 09/27/24 07:34
Lab Results - Hematology
09/25/24 09/27/24
05:45 07:49
WBC 32.3 H 40.7 H*
Lab Results - Chemistry
09/25/24 09/27/24
05:45 07:49
BUN 8 6 L
Creatinine 0.4 L 0.4 L
Estimated Creat Clear 71 71
Albumin 2.5 L
Microbiology Results
09/22/24 13:53 Blood Culture - Final
Blood/Venous No Growth - Final Report
[2024-09-27 15:20] VITALS: BP 144/80
[2024-09-27 15:50] VITALS: BP 144/80
--- NOTE | 2024-09-27 17:07 | W.DCSUMMARY ---
Addendum entered and electronically signed by Amadeo Rivera MD 09/27/24 23:36:
Read, reviewed, and agree. See same day progress note for additional details. DC home on hospice. D/W hospice team
Bryan Rivera MD
Original Note:
Documented by User: Venita Betancourt MD, Resident 09/27/24 18:38
Discharge Summary
Discharge Data
Date of Admission: 09/18/24
Date of Discharge: 09/27/24
-
Pending Results: No
Hospital Course
Primary diagnosis:
Metabolic encephalopathy secondary to septic shock secondary to UTI
Acute delirium/seizure/confusion
Dysphagia
Thrush
Leukocytosis
Acute cerebrovascular accident
Hypotension
Small cell lung cancer stage IV
Hypokalemia
Elevated TSH
Secondary diagnosis:
Chronic hyponatremia
Overactive bladder
Essential hypertension
Asthma
Hospital course:
Pleasant 63-year-old female with past medical history of non-small cell lung cancer with metastasis to the brain, CKD, GERD, asthma presented to the ED on 08/2021 with weakness and confusion for the past few days. Patient had a fever of 101 and a
positive urinalysis. Admitted with sepsis secondary to UTI with fever 101, tachycardia 103, respiratory rate 20, WBC 13.7 with a source. Hg 6.3. Patient started on IV cefepime, fluids and 1 unit of blood transfusions. She denied any melena,
hemoptysis. Patient admitted to IMU. Oncology was consulted. Oncology suspected chemotherapy-induced anemia with likely inflammatory component. Recommending transfusions for hemoglobin less than 7.5. 09/18/2024 patient was started on Levophed
4mcg during the night as MAP dropped to 55. WBC is 20.8. IV cefepime continued. Taken off Levophed 09/19/2024 during the night as blood pressure stabilized. 09/20/2024 and fluids were discontinued as patient started to have good oral intake.
Hemoglobin dropped to 7.0 and 1 unit of blood was given. IV cefepime continued. WBC started to downtrend from 20.8-16.4.
Patient transferred to the floors. Repeat brain MRI was ordered for persistent confusion and known brain metastasis on 07/16/2024 MRI noting stable lesion in the left parietal lobe. (Due to still small size rad/onc at [facility] held off any treatment
with plan and to repeat brain MRI in August). MRI revealed acute CVA 3.2 mm and posterior left parietal lobe brewer radiata and a 1.2 cm osseous metastasis in the right frontal bone. Neurology consulted. Neurology and heme-onc were both okay
with starting her on aspirin as they did not believe the cause of her anemia was due to a bleed. Statin was not needed as LDL is less than 50. Neurology ordered EEG and carotid ultrasound. Abnormal epileptiform form pattern was found. Carotid
ultrasound less than 70% stenosis bilaterally. Started on Keppra for suspected underlying seizure. Thrush noted on physical exam. Nystatin suspension started. Speech therapy recommended soft bite-size diet. WBC started to uptrend. Urine
culture revealed Aerococcus species. Antibiotic switched to amoxicillin. Confusion continued. On 09/22/2024 patient grew increasingly confused overnight and required 0.25 Dilaudid. In the morning upon physical exam pupils had decreased
contractility and increased confusion. Stat CT was ordered with no acute findings. Confusion continued to worsen. Keppra decreased to 750 twice daily per neuro suspecting new drug may be contributing and MRI of the spine was ordered to evaluate
metastasis. Dexamethasone 4 mg started daily started for suspected intracranial edema secondary to brain metastasis per neuro and [facility] agreement. Pain meds were decreased as well with the suspicion that they were attribute contributing to
confusion. WBCs 28.1. Antibiotics switched to vancomycin and infectious disease consulted. They recommended to continue Vanc. Oncology recommended repeat chest CT with IVC to recomplete staging. MRI C/T/L spines with and without contrast
revealed metastatic infiltration of T12 throughout significant portion of the sacrum. Chest CT revealed metastatic disease involving right thoracic outlet, chest wall, liver, adrenal glands, and spleen. T12 osseous mets metastatic disease in the
left lateral ninth rib metastatic disease. Dexa 4mg switched to BID. On 09/24/2024 Heme-onc discussed goals of cares with patient and family members. Family decided to transition patient to home hospice on 07/28/2024. Over the weekend, the patient
continued to receive vancomycin, however WBCs continue to uptrend. Pain medications restarted as needed. Electrolytes repleted as needed.
Today, the patient is going home on home hospice. Patient was sent home on prior home medications with addition of steroids, Keppra, nystatin.
Discharge Plan
-
Patient Disposition: Home with Hospice
Discharge Diagnosis/Procedures: Septic shock secondary to uterine urinary tract infection, non-small cell lung cancer stage IV, seizure, acute cerebrovascular accident, dysphagia, thrush,
Condition: Serious
Diet: As tolerated
Activity: As tolerated
Driving Restrictions: No driving
Bathing Restrictions: None
Other Services: Hospice
Referrals:
Misa Tyson DO [Family Provider] - in one week
Prescriptions:
New
levetiracetam 500 mg Tablet
750 mg PO BID 30 Days Qty: 60 0RF
dexamethasone 4 mg Tablet
4 mg PO BID 10 Days Qty: 20 0RF
nystatin 100,000 unit/mL suspension
5 ml PO QID 30 Days Qty: 16 0RF
Continued
albuterol sulfate 1 PUFF HFA aerosol inhaler
2 puff inhalation R Q4HPRN PRN (Reason: sob)
fluticasone furoate-vilanterol [Breo Ellipta] 1 EACH blister with device
1 ea inhalation R DAILY
rizatriptan 10 mg tablet
10 mg PO DAILYPRN PRN (Reason: migraine)
folic acid 1 mg tablet
1 mg PO DAILY
azelastine 137 mcg (0.1 %) spray,non-aerosol
1 spray INTRANASAL BID
fluticasone propionate 50 mcg/actuation spray,suspension
2 spray INTRANASAL DAILY
lactulose 10 gram/15 mL solution
30 ml PO DAILYPRN PRN (Reason: constipation)
Emgality Pen 120 mg/mL pen injector
120 mg SC Q28D
albuterol sulfate 2.5 MG/3 ML solution for nebulization
2.5 mg inhalation R QIDPRN PRN (Reason: wheezing)
olanzapine 5 mg tablet
5 mg PO HSPRN PRN (Reason: mental health) 30 Days Qty: 30 0RF
morphine 30 mg tablet extended release
30 mg PO BID 30 Days Qty: 60 0RF
Patient Comments:
09/18/2024: last filled 09/16/24, 60 tabs for 30 days
triamcinolone acetonide 0.1 % Cream
1 applic TOPICAL BIDPRN PRN (Reason: rash) 30 Days Qty: 2 0RF
metoclopramide HCl 5 mg tablet
5 mg PO QID 30 Days Qty: 120 0RF
lidocaine 5 % adhesive patch,medicated
3 patch topical DAILY 10 Days Qty: 30 0RF
simethicone 80 mg tablet,chewable
160 mg PO QIDPRN PRN (Reason: flatulence) 30 Days Qty: 60 0RF
oxycodone 5 mg tablet
10 mg PO Q4HPRN PRN (Reason: moderate to severe pain) 30 Days Qty: 180 0RF
Patient Comments:
09/18/2024: last filled 06/11/24, 180 tabs for 30 days from [facility]
solifenacin 5 mg tablet
5 mg PO DAILY 30 Days Qty: 30 0RF
pregabalin 75 mg capsule
75 mg PO BID 30 Days Qty: 60 0RF
Patient Comments:
09/18/2024: last filled 08/21/24, 120 tabs for 60 days from [facility]
Sancuso 3.1 mg/24 hour patch weekly
3.1 mg transdermal Q7D 30 Days Qty: 4 0RF
Ubrelvy 100 mg Tablet
100 mg PO ONCE PRN (Reason: migraine) 30 Days Qty: 30 0RF
Discontinued
spironolactone 50 MG tablet
50 mg PO BID
dexamethasone 4 mg tablet
4 mg PO USEASDIRECTD
Patient Comments:
09/18/2024: TAKE 1 TABLET (4MG) BY MOUTH 2 TIMES A DAY WITH A MEAL. BEGIN THE DAY PRIOR TO EACH CHEMOTHERAPY TREATMENT AND CONTINUE FOR 3 DAYS TOTAL
Prolia 60 mg/mL Syringe
60 mg SC [id number]
Movantik 25 mg tablet
25 mg PO DAILY
Discharge Orders:
Discharge Patient (As Directed); Ordered 09/27/24
Ordered By: Venita Betancourt
Discharge Date and Time
Discharge Date/Time: 09/27/24 18:10
Print Language: ARGENTINE

Documented by User: Amadeo Rivera MD 09/27/24 23:31
Discharge Summary
Discharge Data
Date of Admission: 09/18/24
Date of Discharge: 09/27/24
Discharge Plan
-
Patient Disposition: Home with Hospice
Discharge Diagnosis/Procedures: Septic shock secondary to uterine urinary tract infection, non-small cell lung cancer stage IV, seizure, acute cerebrovascular accident, dysphagia, thrush,
Condition: Serious
Diet: As tolerated
Activity: As tolerated
Driving Restrictions: No driving
Bathing Restrictions: None
Other Services: Hospice
Referrals:
Misa Tyson DO [Family Provider] - in one week
Prescriptions:
New
levetiracetam 500 mg Tablet
750 mg PO BID 30 Days Qty: 60 0RF
dexamethasone 4 mg Tablet
4 mg PO BID 10 Days Qty: 20 0RF
nystatin 100,000 unit/mL suspension
5 ml PO QID 30 Days Qty: 16 0RF
Continued
albuterol sulfate 1 PUFF HFA aerosol inhaler
2 puff inhalation R Q4HPRN PRN (Reason: sob)
fluticasone furoate-vilanterol [Breo Ellipta] 1 EACH blister with device
1 ea inhalation R DAILY
rizatriptan 10 mg tablet
10 mg PO DAILYPRN PRN (Reason: migraine)
folic acid 1 mg tablet
1 mg PO DAILY
azelastine 137 mcg (0.1 %) spray,non-aerosol
1 spray INTRANASAL BID
fluticasone propionate 50 mcg/actuation spray,suspension
2 spray INTRANASAL DAILY
lactulose 10 gram/15 mL solution
30 ml PO DAILYPRN PRN (Reason: constipation)
Emgality Pen 120 mg/mL pen injector
120 mg SC Q28D
albuterol sulfate 2.5 MG/3 ML solution for nebulization
2.5 mg inhalation R QIDPRN PRN (Reason: wheezing)
olanzapine 5 mg tablet
5 mg PO HSPRN PRN (Reason: mental health) 30 Days Qty: 30 0RF
morphine 30 mg tablet extended release
30 mg PO BID 30 Days Qty: 60 0RF
Patient Comments:
09/18/2024: last filled 09/16/24, 60 tabs for 30 days
triamcinolone acetonide 0.1 % Cream
1 applic TOPICAL BIDPRN PRN (Reason: rash) 30 Days Qty: 2 0RF
metoclopramide HCl 5 mg tablet
5 mg PO QID 30 Days Qty: 120 0RF
lidocaine 5 % adhesive patch,medicated
3 patch topical DAILY 10 Days Qty: 30 0RF
simethicone 80 mg tablet,chewable
160 mg PO QIDPRN PRN (Reason: flatulence) 30 Days Qty: 60 0RF
oxycodone 5 mg tablet
10 mg PO Q4HPRN PRN (Reason: moderate to severe pain) 30 Days Qty: 180 0RF
Patient Comments:
09/18/2024: last filled 06/11/24, 180 tabs for 30 days from [facility]
solifenacin 5 mg tablet
5 mg PO DAILY 30 Days Qty: 30 0RF
pregabalin 75 mg capsule
75 mg PO BID 30 Days Qty: 60 0RF
Patient Comments:
09/18/2024: last filled 08/21/24, 120 tabs for 60 days from [facility]
Sancuso 3.1 mg/24 hour patch weekly
3.1 mg transdermal Q7D 30 Days Qty: 4 0RF
Ubrelvy 100 mg Tablet
100 mg PO ONCE PRN (Reason: migraine) 30 Days Qty: 30 0RF
Discontinued
spironolactone 50 MG tablet
50 mg PO BID
dexamethasone 4 mg tablet
4 mg PO USEASDIRECTD
Patient Comments:
09/18/2024: TAKE 1 TABLET (4MG) BY MOUTH 2 TIMES A DAY WITH A MEAL. BEGIN THE DAY PRIOR TO EACH CHEMOTHERAPY TREATMENT AND CONTINUE FOR 3 DAYS TOTAL
Prolia 60 mg/mL Syringe
60 mg SC [id number]
Movantik 25 mg tablet
25 mg PO DAILY
Discharge Orders:
Discharge Patient (As Directed); Ordered 09/27/24
Ordered By: Venita Betancourt
Discharge Date and Time
Discharge Date/Time: 09/27/24 18:10
Print Language: ARGENTINE
[2024-09-27] MEDS: AFLURIA (36 mos+) 2024-2025 FORMULA 0.5 ML IM (17:26)
== END 2024-09-27 18:10 | disposition hospice, home (50) | DRG 871 ==
LOC: 3 WEST ACU 18:10
PROVIDERS: Emergency Medicine; Internal Medicine; Registered Nurse; ADMITTING PHYSICIAN Hospitalist; ATTENDING PHYSICIAN Family Medicine; CONSULT PHYSICIAN Internal Medicine Hematology & Oncology; CONSULT PHYSICIAN Psychiatry & Neurology Neurology; CONSULT PHYSICIAN Student in an Organized Health Care Education/Training Program; EMERGENCY PHYSICIAN Emergency Medicine; FAMILY PHYSICIAN Family Medicine
DX: A41.9 Sepsis, unspecified organism (principal); G93.41 Metabolic encephalopathy; R65.21 Severe sepsis with septic shock; I63.9 Cerebral infarction, unspecified; N39.0 Urinary tract infection, site not specified; B37.0 Candidal stomatitis; C79.31 Secondary malignant neoplasm of brain; C79.51 Secondary malignant neoplasm of bone; C78.7 Secondary malignant neoplasm of liver and intrahepatic bile duct; E87.1 Hypo-osmolality and hyponatremia; C34.91 Malignant neoplasm of unspecified part of right bronchus or lung; F11.20 Opioid dependence, uncomplicated; D63.8 Anemia in other chronic diseases classified elsewhere; D69.59 Other secondary thrombocytopenia; I12.9 Hypertensive chronic kidney disease with stage 1 through stage 4 chronic kidney disease, or unspecified chronic kidney disease; N18.9 Chronic kidney disease, unspecified; I34.1 Nonrheumatic mitral (valve) prolapse; I65.23 Occlusion and stenosis of bilateral carotid arteries; J45.909 Unspecified asthma, uncomplicated; G62.9 Polyneuropathy, unspecified; T45.1X5A Adverse effect of antineoplastic and immunosuppressive drugs, initial encounter; R13.10 Dysphagia, unspecified; E26.9 Hyperaldosteronism, unspecified; E55.9 Vitamin D deficiency, unspecified; E87.6 Hypokalemia; N32.81 Overactive bladder; M81.0 Age-related osteoporosis without current pathological fracture; M54.16 Radiculopathy, lumbar region; M48.061 Spinal stenosis, lumbar region without neurogenic claudication; K59.00 Constipation, unspecified; G43.809 Other migraine, not intractable, without status migrainosus; G44.309 Post-traumatic headache, unspecified, not intractable; K21.9 Gastro-esophageal reflux disease without esophagitis; R79.89 Other specified abnormal findings of blood chemistry; Z79.82 Long term (current) use of aspirin; Z79.899 Other long term (current) drug therapy; Z87.891 Personal history of nicotine dependence; Z90.2 Acquired absence of lung [part of]; Z87.11 Personal history of peptic ulcer disease; Z87.442 Personal history of urinary calculi
CPT/HCPCS: 70450; 70553; 71046; 71260; 72156; 72157; 72158; 80048; 80053; 80061; 81003; 81015; 82140; 82607; 82728; 82746; 83010; 83036; 83540; 83550; 83605; 83615; 83735; 84439; 84443; 85014; 85018; 85025; 85027; 85045; 85610; 85730; 86803; 86850; 86900; 86901; 86920; 87040; 87070; 87077; 87086; 87502; 87811; 90686; 92507; 92523; 92526; 92610; 93005; 93880; 94640; 94760; 95816; 96374; 97116; 97163; 97167; 97530; 97535; 99285; A9575; G0008; P9016; Q9967